=== PATIENT | female | born 1950 | race Caucasian/White ===

== ENCOUNTER 2018-03-20 11:16 | Observation (INO) ==
[2018-03-20] MEDS ORDERED: ALBUTEROL SULFATE 2.5 MG/0.5 ML VIAL.NEB IH ONE ×2 (11:56→11:57)
--- NOTE | 2018-03-20 12:00 | ERNOTE ---
Dyspnea - Date Date of Service: 03/20/18 - General Presenting Symptoms: shortness of breath Time Seen by Provider: 03/20/18 11:24 Source: patient, family Exam Limitations: no limitations - Immun/Allergies/Home Medications Immunizations: IMMUNIZATION HX Immunizations Up to Date Yes History of Influenza Vaccine No Allergies/Adverse Reactions: Allergies shellfish derived Allergy (Verified 03/20/18 11:32) Home Medications: HOME MEDICATIONS Metoprolol Tartrate [Lopressor] 50 mg PO HS 07/09/15 [Last Taken Unknown] QUEtiapine FUMARATE [Seroquel] 25 mg PO HS 09/11/15 [Last Taken Unknown] Sertraline HCl [Zoloft] 100 mg PO BID 09/11/15 [Last Taken Unknown] Albuterol Sulfate [Proair Hfa] 1 puff IH QID PRN 07/25/16 [Last Taken Unknown] Albuterol Sulfate/Ipratropium [Duoneb 2.5-0.5MG/3ML Soln] 3 ml IH QID 07/25/16 [ Last Taken Unknown] Atorvastatin Calcium [Lipitor] 20 mg PO DAILY 07/25/16 [Last Taken Unknown] Diazepam 10 mg PO QID 07/25/16 [Last Taken Unknown] Levothyroxine Sodium [Synthroid] 88 mcg PO DAILY@0700 #30 tablet 07/28/16 [Last Taken Unknown] Spironolactone [Aldactone] 25 mg PO BID@0900,1700 #60 tablet 07/28/16 [Last Taken Unknown] Fluticasone/Vilanterol [Breo Ellipta 200-25 Mcg INH] 1 each IH DAILY 11/10/16 [ Last Taken Unknown] Umeclidinium [place] [Incruse Ellipta] 62.5 mcg IH DAILY 11/10/16 [Last Taken Unknown] Cyclobenzaprine HCl [Flexeril] 10 mg PO BID 03/20/18 [Last Taken Unknown] Montelukast Sodium [Singulair] 10 mg PO DAILY 03/20/18 [Last Taken Unknown] QUEtiapine FUMARATE [Seroquel] 25 mg PO DAILY 03/20/18 [Last Taken Unknown] traMADol HCL [Ultram] 50 mg PO Q4H PRN 03/20/18 [Last Taken Unknown] - History of Present Illness Narrative: Patient presents with complaints of dyspnea worsening over the past week. States she has significant COPD requiring continuous O2 at 2 liters NC. Has however increased to 3 liters periodically over the past week. Denies any pain. Denies a productive cough. 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 Took a duoneb this AM. 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 - Duoneb Initiating event: Reports: none Frequency of episodes: Reports: occassional episodes Modifying Factors - (Improves): Reports: albuterol, oxygen Modifying Factors (Worsens): Reports: other - Weather changes Associated Symptoms-Dyspnea: Reports: anxiety, other - States when she cannot breath she becomes anxious Prior Treatment: Reports: other - Patient has had COPD exacerbations before requiring intervention Review of Systems - Review of Systems Constitutional: Present: See HPI EYE: Present: no symptoms reported ENT: Present: no symptoms reported Respiratory: Present: other - Chronic dyspnea on O2 worse the past week. States she is using her duoneb as instructed and continuing with inhalers but feels as if she is getting worse. Denies a productive cough. Cardiology: Present: no symptoms reported, other - States she had an angio in October and everything was fine. Gastrointestinal/Abdominal: Present: no symptoms reported Genitourinary: Present: no symptoms reported Musculoskeletal: Present: no symptoms reported, other - chronic muscle weakness Skin: Present: no symptoms reported Neurological: Present: no symptoms reported Endocrine: Present: no symptoms reported Hematologic/Lymphatic: Present: no symptoms reported Psych: Present: anxiety, other - Takes valium for her anxiety as needed. - Patient's Past Medical History Patient History - Medical: Anxiety, Depression Patient History - Cardiac/Respiratory: COPD, Hypertension, Home O2 Use, CPAP/ BiPAP Home Use, Sleep Apnea Patient History - Cancer: No Hx of Cancer Patient History - Surgical Procedures: T & A Patient History - Other: None - Family History mom Family History - Medical: Family History - Cardiac/Respiratory: COPD, Home O2 Use, CPAP/BiPAP Home Use, Sleep Apnea - Social History Living Situations: home Abuse History: No History of abuse Psych History: Hx of Anxiety, Hx of Depression - Immunizations Immunizations Up to Date: Yes History of Influenza Vaccine: No Physical Exam - Physical Exam General Appearance: Present: wd/wn, alert, cheerful, other - Does become more SOB with long conversations. Head Exam: Present: normal inspection, no evidence of injury Eye Exam: Normal inspection: bilateral, PERRL: bilateral, EOMI: bilateral Ears, Nose, Throat: Present: normal ENT inspection, normal pharynx Neck: Present: normal inspection, nontender, supple, other - No bruits Respiratory: Present: decreased breath sounds, other - No wheezes, rales, or rhonchi. Tachypnea Cardiovascular/Chest: Present: regular rate, rhythm, no murmur, normal peripheral pulses Peripheral Pulses: N=norm/S=strong/W=weak/B=bound/A=absent: Radial (R): Normal, Radial (L): Normal Gastrointestinal/Abdominal: Present: normal bowel sounds, nontender, nondistended, soft Back Exam: Present: no CVA tenderness Extremity Exam: Present: normal inspection, normal range of motion Neurological Exam: Present: alert, normal mood/affect, no motor/sensory deficits Skin Exam: Present: normal color, warm/dry ED Progress - Results and Orders Patient's Lab Results:: I have reviewed the patient's lab results. - Vital Signs Patient's Vital Signs:: I have reviewed the patient's vital signs. Vital Signs: Vital Signs 03/20/18 03/20/18 11:20 11:33 Temperature 38.4 C H Pulse Rate 92 92 Respiratory 26 H 26 H Rate Blood Pressure 152/71 152/71 O2 Sat by Pulse 93 90 Oximetry - EKG EKG: NSR EKG read: Interp. by me - X-Ray X-Ray #1 X-Ray: chest Interpretation: Reviewed by me - No acute infiltrates. COPD - Progress/Reassessment Chief Complaint: Dyspnea Progress:: Improved - Transfer of Care Expected Disposition: Admit - Discussed patient with Dr. Nash who agreed with placing on observation. Departure Clinical Impression: COPD exacerbation - Departure Disposition: Short Term Hospital Inpatient Condition: Good
[2018-03-20 12:09] LABS: Hematocrit 41.4 % (37.0-47.0); Hemoglobin 13.4 gm/dL (12.5-16.0); Mean Cell Volume 96.1 fl (78-100); Mean Corpuscular Hemoglobin 31.1 pg (27-31); Mean Corpuscular Hgb Conc 32.4 g/dl (32-36); Mean Platelet Volume 9.7 fl (8-12.5); Neutrophil # 10.6 K/mm3 (1.3-6.0); Neutrophil % 86.5 % (42-75.0); Platelet Count 167 K/mm3 (150-450); Red Blood Count 4.31 M/mm3 (4.2-5.4); Red Cell Distribution Width 13.3 % (11.5-14.0); White Blood Count 12.2 K/mm3 (4.0-10.5)
[2018-03-20 12:21] LABS: Albumin * 4.3 gm/dl (3.4-5.0); Anion Gap 13.6 mmol/L (6.8-13.8); BUN/Creatinine Ratio 13.3 (9.0-21.6); Bilirubin, Total 0.5 mg/dL (0.0-1.1); Ca. Corrected For Albumin 8.2 mg/dL (8.4-10.2); Calcium * 8.8 mg/dL (7.9-10.9); Carbon Dioxide 31.7 mmol/L (24-32.6); Potassium 4.3 mmol/L (3.4-4.6); Total Protein 8.5 gm/dL (6.2-8.2)
[2018-03-20] MEDS ORDERED: ACETAMINOPHEN 325 MG TABLET PO ONE (12:36)
[2018-03-20] MEDS ORDERED: ACETAMINOPHEN 325 MG TABLET ONE (12:43)
[2018-03-20] MEDS ORDERED: NORMAL SALINE 1,000 ML IV ONE (12:44)
[2018-03-20 12:51] LABS: Urine Bilirubin Negative (NEGATIVE); Urine Blood Negative /ul (NEGATIVE); Urine Ketone Negative (NEGATIVE); Urine Protein Negative (NEGATIVE); Urine Specific Gravity 1.015 SP.GR. (1.005-1.010); Urine Urobilinogen Normal (NORMAL); Urine pH 7.5 pH (5.0-7.0)
[2018-03-20] MEDS ORDERED: LEVOFLOXACIN IN DEXTROSE 5 % 500 MG/100 ML BAG IV SCH (13:00)
[2018-03-20 13:03] LABS: Urine Appearance Slightly Cloudy (CLEAR); Urine Bacteria 3+; Urine Color Yellow; Urine Nitrite Positive (NEGATIVE); Urine RBC 0-5 /hpf (0-5); Urine WBC 0-5 /hpf (0-5)
[2018-03-20] MEDS ORDERED: METHYLPREDNISOLONE SOD SUCC/PF 40 MG/ML VIAL IV ONE (13:04)
[2018-03-20] MEDS ORDERED: METHYLPREDNISOLONE SOD SUCC/PF 40 MG/ML VIAL ONE (13:06)
--- NOTE | 2018-03-20 17:05 | HP ---
Chief Complaint - Chief Complaint Date of Service: 03/20/18 Time of Service: 16:56 Chief Complaint: increasing shortness of breath History of Present Illness: Iqra pool, is a 67-year-old white female, patient of Dr. Torres, with previous medical history of severe COPD, oxygen dependent, generalized anxiety disorder, hypertension , obstructive sleep apnea, pulmonary hypertension, who was admitted on 03/20/2018 because of shortness of breath. The patient went to the emergency room because of worsening shortness of breath for the last week. She is on home oxygen at 2 L 24 hours a day . She has been having some cough , mostly nonproductive and some wheezing . She had been increasing her oxygen to 3 L, intermittently, however she still could not get relief of dyspnea. This morning she was noticed to be confused . When he bought her to the bathroom , his O2 dropped down to the low 80's% as they have a pulse oximeter at home He gave her a Duoneb which did not help and so the brought her to the emergency room. Her CXR did not show acute cardiopulmonary findings. Her WBC was elevated and her ABG, showed respiratory acidosis with hypercapnea and hypoxemia. She was admitted for further treatment. - Patient's Past Medical History Patient History - Medical: Anxiety, Depression Patient History - Cardiac/Respiratory: COPD, Hypertension, Home O2 Use, CPAP/ BiPAP Home Use, Sleep Apnea Patient History - Cancer: No Hx of Cancer Patient History - Surgical Procedures: T & A Patient History - Other: None - Family History Father Family History - Medical: , No pertinent hx Family History - Cardiac/Respiratory: No pertinent hx Family History - Cancer: Colon, Prostate mom Family History - Medical: Family History - Cardiac/Respiratory: No pertinent hx Family History - Cancer: Colon - Social History Living Situations: significant other Abuse History: No History of abuse Psych History: Hx of Anxiety, Hx of Depression Smoking Status: Former smoker Have you smoked in the past 12 months: No Alcohol Use: occasionally Drug Use: none - Immunizations Immunizations Up to Date: Yes History of Influenza Vaccine: No Review Of Systems (GEN) - Review of Systems Generalized/Overall Review: Absent: Chills, Fever Respiratory: Present: Cough, Shortness of Breath, Wheezing Cardiac: Absent: Chest Pain, Edema, Palpitations Abdominal: Absent: Nausea, Vomiting Genitourinary: Absent: Urgency, Frequency Allergies/Adverse Reactions: Allergies Allergy/AdvReac Type Severity Reaction Status Date / Time shellfish derived Allergy Verified 03/20/18 16:04 Home Medications: HOME MEDICATIONS QUEtiapine FUMARATE [Seroquel] 25 mg PO HS 09/11/15 [Last Taken Unknown] Sertraline HCl [Zoloft] 100 mg PO BID 09/11/15 [Last Taken Unknown] Albuterol Sulfate [Proair Hfa] 1 puff IH QID PRN 07/25/16 [Last Taken Unknown] Albuterol Sulfate/Ipratropium [Duoneb 2.5-0.5MG/3ML Soln] 3 ml IH QID PRN [Last Taken Unknown] Atorvastatin Calcium [Lipitor] 20 mg PO DAILY 07/25/16 [Last Taken Unknown] Diazepam 5 mg PO TID 07/25/16 [Last Taken Unknown] Levothyroxine Sodium [Synthroid] 88 mcg PO DAILY@0700 #30 tablet 07/28/16 [Last Taken Unknown] Spironolactone [Aldactone] 25 mg PO BID@0900,1700 #60 tablet 07/28/16 [Last Taken Unknown] Fluticasone/Vilanterol [Breo Ellipta 200-25 Mcg INH] 1 each IH DAILY 11/10/16 [ Last Taken Unknown] Umeclidinium [place] [Incruse Ellipta] 62.5 mcg IH DAILY 11/10/16 [Last Taken Unknown] Cyclobenzaprine HCl [Flexeril] 10 mg PO BID 03/20/18 [Last Taken Unknown] Diazepam 5 mg PO Q4H PRN 03/20/18 [Last Taken Unknown] Diazepam 10 mg PO HS 03/20/18 [Last Taken Unknown] Metoprolol Succinate 50 mg PO HS 03/20/18 [Last Taken Unknown] Montelukast Sodium [Singulair] 10 mg PO DAILY@1700 03/20/18 [Last Taken Unknown] Naproxen Sodium [Aleve] 220 mg PO BID PRN 03/20/18 [Last Taken Unknown] guaiFENesin [Guaifenesin] 400 mg PO Q4H PRN 03/20/18 [Last Taken Unknown] traMADol HCL [Ultram] 50 mg PO Q4H PRN 03/20/18 [Last Taken Unknown] Levofloxacin [Levaquin] 500 mg PO DAILY 7 Days #7 tablet 03/21/18 [Last Taken Unknown] predniSONE [Prednisone] 2 tab PO DAILY #14 tab 03/21/18 [Last Taken Unknown] Exam - Exam Vital Signs: Vital Signs - Last Taken Temp 36.7 C 03/20/18 16:05 Pulse 89 03/20/18 16:05 Resp 20 03/20/18 16:05 BP 137/72 03/20/18 16:05 Pulse Ox 95 03/20/18 16:05 Constitutional: Present: Alert, Oriented x3, Cooperative ENT Exam: Present: hearing grossly normal Eye Exam: bilateral eye: normal inspection, PERRL, EOMI Neck: Present: supple Respiratory: Present: decreased breath sounds, wheezing, No rales Cardiovascular/Chest: Present: regular rate, rhythm, no JVD, no murmur Abdomen: Present: Normal bowel sounds, soft, nontender, nondistended Extremity: Present: no pedal edema, no calf tenderness Diagnostic Studies: Laboratory Results WBC 12.2 K/mm3 (4.0-10.5) H 03/20/18 12:04 RBC 4.31 M/mm3 (4.2-5.4) 03/20/18 12:04 Hgb 13.4 gm/dL (12.5-16.0) 03/20/18 12:04 Hct 41.4 % (37.0-47.0) 03/20/18 12:04 MCV 96.1 fl (78-100) 03/20/18 12:04 MCH 31.1 pg (27-31) H 03/20/18 12:04 MCHC 32.4 g/dl (32-36) 03/20/18 12:04 RDW 13.3 % (11.5-14.0) 03/20/18 12:04 Plt Count 167 K/mm3 (150-450) 03/20/18 12:04 MPV 9.7 fl (8-12.5) 03/20/18 12:04 Immature Gran % (Auto) 0.50 % (0.001-0.429) H 03/20/18 12:04 Immature Gran # (Auto) 0.06 K/mm3 (0.000-0.0310) H 03/20/18 12:04 Neutrophils % 86.5 % (42-75.0) H 03/20/18 12:04 Lymphocytes % 6.9 % (20-51) L 03/20/18 12:04 Monocytes % 3.6 % (0.0-9) 03/20/18 12:04 Eosinophils % 2.3 % (0.0-3.0) 03/20/18 12:04 Basophils % 0.2 % (0.0-1.0) 03/20/18 12:04 Nucleated RBC % 0.0 k/mm3 (0-1) 03/20/18 12:04 Neutrophils # 10.6 K/mm3 (1.3-6.0) H 03/20/18 12:04 Lymphocytes # 0.84 k/mm3 (1.5-3.5) L 03/20/18 12:04 Monocytes # 0.4 k/mm3 (0.0-1.0) 03/20/18 12:04 Eosinophils # 0.3 k/mm3 (0.0-0.7) 03/20/18 12:04 Absolute Basophils 0.0 k/mm3 (0.0-0.1) 03/20/18 12:04 pCO2 51.7 mmHg (32.0-45.0) H 03/20/18 12:08 pO2 68.1 mmHg (83.0-108.0) L 03/20/18 12:08 HCO3 30.0 mmol/L (21.0-28.0) H 03/20/18 12:08 Total CO2 31.6 mmol/L (19.0-24.0) H 03/20/18 12:08 Base Excess 3.8 mmol/L (-2.0-3.0) H 03/20/18 12:08 ABG pH 7.38 (7.35-7.45) 03/20/18 12:08 ABG O2 Sat (Measured) 93.1 % (94.0-98.0) L 03/20/18 12:08 Sodium 139 mmol/L (132-142) 03/20/18 12:04 Plasma Sodium 139 mmol/L (130-142) 03/20/18 12:04 Potassium 4.3 mmol/L (3.4-4.6) 03/20/18 12:04 Chloride 98 mmol/L (97-106) 03/20/18 12:04 Carbon Dioxide 31.7 mmol/L (24-32.6) 03/20/18 12:04 Anion Gap 13.6 mmol/L (6.8-13.8) 03/20/18 12:04 BUN 11 mg/dL (3-23) 03/20/18 12:04 Creatinine 0.83 mg/dL (0.4-1.4) 03/20/18 12:04 Est GFR (Non-Af Amer) 72 mL/min (60-130) D 03/20/18 12:04 BUN/Creatinine Ratio 13.3 (9.0-21.6) 03/20/18 12:04 Random Glucose 126 mg/dL (70-110) H 03/20/18 12:04 Lactic Acid, Venous 1.4 mmol/L (0.4-1.9) 03/20/18 15:48 Calcium 8.8 mg/dL (7.9-10.9) 03/20/18 12:04 Calcium Adj for Albumin 8.2 mg/dL (8.4-10.2) L 03/20/18 12:04 Total Bilirubin 0.5 mg/dL (0.0-1.1) 03/20/18 12:04 AST 38 U/L (0-48) 03/20/18 12:04 ALT 50 U/L (19-67) 03/20/18 12:04 Alkaline Phosphatase 169 U/L (50-170) 03/20/18 12:04 Total Protein 8.5 gm/dL (6.2-8.2) H 03/20/18 12:04 Albumin 4.3 gm/dl (3.4-5.0) 03/20/18 12:04 Procalcitonin Less than 0.05 ng/mL (0.05-0.50) L 03/20/18 12:10 Urine Color Yellow 03/20/18 12:34 Urine Appearance Slightly cloudy (CLEAR) 03/20/18 12:34 Urine pH 7.5 pH (5.0-7.0) 03/20/18 12:34 Ur Specific [place] 1.015 SP.GR. (1.005-1.010) 03/20/18 12:34 Urine Protein Negative mg/dL (NEGATIVE) 03/20/18 12:34 Urine Glucose (UA) Negative mg/dL (NEGATIVE) 03/20/18 12:34 Urine Ketones Negative mg/dL (NEGATIVE) 03/20/18 12:34 Urine Blood Negative /ul (NEGATIVE) 03/20/18 12:34 Urine Nitrate Positive (NEGATIVE) H 03/20/18 12:34 Urine Bilirubin Negative mg/dl (NEGATIVE) 03/20/18 12:34 Urine Urobilinogen Normal EU/dl (NORMAL) 03/20/18 12:34 Ur Leukocyte Esterase Negative /ul (NEGATIVE) 03/20/18 12:34 Urine RBC 0-5 /hpf (0-5) 03/20/18 12:34 Urine WBC 0-5 /hpf (0-5) 03/20/18 12:34 Ur Epithelial Cells 0-5 /hpf (0-5) 03/20/18 12:34 Urine Bacteria 3+ (NONE) H 03/20/18 12:34 Urine Culture Comments Culture to follow 03/20/18 12:34 Assessment/Plan - Assessment/Plan (1) Acute respiratory failure with hypoxia and hypercapnia Assessment: likely acute bronchitis. will continue with oxygenation Problem: Acute (2) COPD exacerbation Assessment: will continue with breathing treatments, IV Solumedrol and IV antibiotics. Problem: Acute (3) Depression Assessment: with TOREY Problem: Chronic (4) Pulmonary hypertension Problem: Chronic
[2018-03-20] MEDS ORDERED: traMADol HCL 50 MG TABLET PO PRN (17:12)
[2018-03-20] MEDS ORDERED: NAPROXEN SODIUM 220 MG TABLET PO PRN (17:12)
[2018-03-20] MEDS ORDERED: ALBUTEROL SULFATE 200 PUFF INHALER IH PRN (17:12)
[2018-03-20] MEDS ORDERED: METHYLPREDNISOLONE SOD SUCC/PF 40 MG/ML VIAL IV SCH (17:15)
[2018-03-20] MEDS ORDERED: ALBUTEROL SULFATE 2.5 MG/0.5 ML VIAL.NEB IH PRN (17:29)
[2018-03-20] MEDS ORDERED: ALBUTEROL SULFATE/IPRATROPIUM 3 ML NEBU IH PRN (17:29)
[2018-03-20] MEDS ORDERED: DIAZEPAM 5 MG TABLET PO PRN (17:44)
[2018-03-20] MEDS ORDERED: guaiFENesin 100 MG/5 ML BTL PO PRN (17:47)
[2018-03-20] MEDS: DIAZEPAM 5 MG TABLET PO SCH (18:13)
[2018-03-20] MEDS: METHYLPREDNISOLONE SOD SUCC/PF 40 MG/ML VIAL IV SCH (19:37)
[2018-03-20] MEDS: SERTRALINE HCL 100 MG TABLET PO SCH (20:34)
[2018-03-20] MEDS ORDERED: DIAZEPAM 5 MG TABLET PO SCH (21:00)
[2018-03-20] MEDS ORDERED: METOPROLOL SUCCINATE 50 MG TABLET.SA PO SCH (21:00)
[2018-03-20] MEDS ORDERED: QUEtiapine FUMARATE 25 MG TABLET PO SCH (21:00)
[2018-03-21] MEDS: METHYLPREDNISOLONE SOD SUCC/PF 40 MG/ML VIAL IV SCH ×2 (01:02→07:51)
--- NOTE | 2018-03-21 06:52 | DS ---
Addendum entered and electronically signed by Adis Nash MD 03/21/18 08 :59: I saw and examined this patient on 03/21/2018. I agree with the narrative and plan of ARISTEO Curtis. Will discharge her on her home medications and keep her Levaquin and Prednisone x 7 days. She has an appointment with her senior accountant on Thursday. Original Note: (1) COPD exacerbation Problem: Acute (2) Pulmonary hypertension Problem: Chronic (3) Chronic lower back pain Problem: Chronic Qualifiers: Back pain laterality: bilateral Sciatica presence: unspecified whether sciatica present Qualified Code(s): M54.5 - Low back pain; G89.29 - Other chronic pain; G89.29 - Other chronic pain (4) Generalized muscle weakness Problem: Acute (5) Depression Problem: Chronic (6) Acute respiratory failure with hypoxia and hypercapnia Problem: Acute Description of Stay: Date of admission 03/20/2018 Date of discharge 03/21/2018 Discharge Summary Mrs. pool a 67 years old female was adm to the hospital with reports of dyspnea, non productive cough and hypoxia. Pt is oxygen dependent and uses 2L nasal cannula 24hr. PMH significant for severe COPD, oxygen dependent, generalized anxiety disorder, hypertension , obstructive sleep apnea, pulmonary hypertension.Over the past week she has worsening shortness of breath. While at home she nebulizer, inhalers and increased her oxygen intermittently without relief. On the day of adm she went to the bathroom and her spo2 was 80%, her was concern and brought her to the hospital.CXR:No acute cardiopulmonary findings.Her WBC was elevated and her ABG, showed respiratory acidosis with hypercapnea and hypoxemia. During this adm she had supplemented oxygen of 3L, solumedrol, IV antibiotic and neb treatments. She remains medically stable and tolerated treatment well. Today pt stated she feels much better and more liker her old self.She is medically appropriate for discharge home and follow up with Dr Torres. She will continue with oral Levaquin and Prednisone for an additional 7 days.Plan of care discussed with pt she verbalized understanding and agrees. New Medications Prednisone 40mg daily x7 days Levaquin 500mg daily x7 days Procedures Performed: none Results and Findings: Laboratory Tests 03/20/18 03/20/18 03/20/18 03/20/18 12:04 12:04 12:10 15:48 WBC 12.2 H RBC 4.31 Hgb 13.4 Hct 41.4 MCV 96.1 MCH 31.1 H Plt Count 167 Sodium 139 Plasma Sodium 139 Potassium 4.3 Chloride 98 Carbon Dioxide 31.7 Anion Gap 13.6 BUN 11 Lactic Acid, Venous 2.0 H 1.4 Discharge Location: Home Disposition: Home self-care Condition: Good Discharge Activity: Activity as tolerated Discharge Diet: General/regular food Problem Oriented Discharge Instructions to Patient/Family: Chronic Obstructive Pulmonary Disease Exacerbation, [id number], Hypoxemia Additional Patient Instructions (free text): Follow up with Dr Torres in 8-10 days, please call for appt. Keep appointment with senior accountant on Thursday. Prescriptions (Any new or edited meds): Levofloxacin [Levaquin] 500 mg PO DAILY 7 Days #7 tablet predniSONE [Prednisone] 2 tab PO DAILY #14 tab Complete Home Medications List: Complete Home Medication List: QUEtiapine FUMARATE [Seroquel] 25 mg PO HS 09/11/15 Sertraline HCl [Zoloft] 100 mg PO BID 09/11/15 Albuterol Sulfate [Proair Hfa] 1 puff IH QID PRN 07/25/16 Albuterol Sulfate/Ipratropium [Duoneb 2.5-0.5MG/3ML Soln] 3 ml IH QID PRN Atorvastatin Calcium [Lipitor] 20 mg PO DAILY 07/25/16 Diazepam 5 mg PO TID 07/25/16 Levothyroxine Sodium [Synthroid] 88 mcg PO DAILY@0700 #30 tablet 07/28/16 Spironolactone [Aldactone] 25 mg PO BID@0900,1700 #60 tablet 07/28/16 Fluticasone/Vilanterol [Breo Ellipta 200-25 Mcg INH] 1 each IH DAILY 11/10/16 Umeclidinium [place] [Incruse Ellipta] 62.5 mcg IH DAILY 11/10/16 Cyclobenzaprine HCl [Flexeril] 10 mg PO BID 03/20/18 Diazepam 5 mg PO Q4H PRN 03/20/18 Diazepam 10 mg PO HS 03/20/18 Metoprolol Succinate 50 mg PO HS 03/20/18 Montelukast Sodium [Singulair] 10 mg PO DAILY@1700 03/20/18 Naproxen Sodium [Aleve] 220 mg PO BID PRN 03/20/18 guaiFENesin [Guaifenesin] 400 mg PO Q4H PRN 03/20/18 traMADol HCL [Ultram] 50 mg PO Q4H PRN 03/20/18 Levofloxacin [Levaquin] 500 mg PO DAILY 7 Days #7 tablet 03/21/18 predniSONE [Prednisone] 2 tab PO DAILY #14 tab 03/21/18
[2018-03-21] MEDS ORDERED: LEVOTHYROXINE SODIUM 88 MCG TABLET PO SCH (07:00)
[2018-03-21] MEDS: SERTRALINE HCL 100 MG TABLET PO SCH (07:59)
[2018-03-21] MEDS: DIAZEPAM 5 MG TABLET PO SCH (08:00)
[2018-03-21] MEDS ORDERED: ROSUVASTATIN CALCIUM 10 MG TABLET PO SCH ×2 (09:00→21:00)
[2018-03-21] MEDS ORDERED: SPIRONOLACTONE 25 MG TABLET PO SCH (09:00)
[2018-03-21] MEDS ORDERED: TIOTROPIUM BROMIDE 5 CAP INHALER IH SCH (09:00)
[2018-03-21] MEDS ORDERED: FLUTICASONE/SALMETEROL 14 PUFF DISK.W.DEV IH SCH (09:00)
[2018-03-21 10:45] VITALS: BP 135/67
[2018-03-21] MEDS ORDERED: MONTELUKAST SODIUM 10 MG TABLET PO SCH (17:00)
== END 2018-03-21 10:46 | disposition home or self-care (01) ==
LOC: ER 11:16 → MS 13:49
PROVIDERS: ADMIT Internal Medicine; ATTEND Internal Medicine
DX: I10 Essential (primary) hypertension; R53.1 Weakness; J96.22 Acute and chronic respiratory failure with hypercapnia; G47.33 Obstructive sleep apnea (adult) (pediatric); Z68.31 Body mass index [BMI] 31.0-31.9, adult; J44.1 Chronic obstructive pulmonary disease with (acute) exacerbation; J96.21 Acute and chronic respiratory failure with hypoxia; I27.20 Pulmonary hypertension, unspecified; F41.9 Anxiety disorder, unspecified
CPT/HCPCS: 36415; 36600; 71010; 71045; 80053; 81001; 82803; 83605; 84145; 85025; 87040; 87077; 87086; 87186; 93005; 94640; 94664; 94760; 96361; 96365; 96375; 96376; 99285; G0378

== ENCOUNTER 2018-08-21 10:52 | Observation (INO) | payer BC, MEDICARE ==
[2018-08-21] MEDS ORDERED: ALBUTEROL SULFATE 2.5 MG/0.5 ML VIAL.NEB IH ONE (11:10)
[2018-08-21 11:28] LABS: Hematocrit 37.2 % (37.0-47.0); Hemoglobin 12.5 gm/dL (12.5-16.0); Mean Cell Volume 91.6 fl (78-100); Mean Corpuscular Hemoglobin 30.8 pg (27-31); Mean Corpuscular Hgb Conc 33.6 g/dl (32-36); Mean Platelet Volume 9.9 fl (8-12.5); Neutrophil # 9.5 K/mm3 (1.3-6.0); Neutrophil % 85.6 % (42-75.0); Platelet Count 148 K/mm3 (150-450); Red Blood Count 4.06 M/mm3 (4.2-5.4); Red Cell Distribution Width 13.5 % (11.5-14.0); White Blood Count 11.1 K/mm3 (4.0-10.5)
--- NOTE | 2018-08-21 11:34 | ERNOTE ---
Dyspnea - Date Date of Service: 08/21/18 - General Presenting Symptoms: shortness of breath, wheezing Time Seen by Provider: 08/21/18 10:54 Source: patient, family Exam Limitations: no limitations - Immun/Allergies/Home Medications Immunizations: IMMUNIZATION HX Immunizations Up to Date Yes History of Influenza Vaccine Yes Hx Pneumococcal Vaccination Yes Allergies/Adverse Reactions: Allergies shellfish derived Allergy (Verified 08/21/18 11:24) Home Medications: HOME MEDICATIONS Sertraline HCl [Zoloft] 100 mg PO BID 09/11/15 [Last Taken Unknown] Albuterol Sulfate [Proair Hfa] 1 puff IH QID PRN 07/25/16 [Last Taken Unknown] Albuterol Sulfate/Ipratropium [Duoneb 2.5-0.5MG/3ML Soln] 3 ml IH QID PRN 07/25/16 [Last Taken Unknown] Atorvastatin Calcium [Lipitor] 20 mg PO DAILY 07/25/16 [Last Taken Unknown] Umeclidinium [place] [Incruse Ellipta] 62.5 mcg IH DAILY 11/10/16 [Last Taken Unknown] Cyclobenzaprine HCl [Flexeril] 10 mg PO BID 03/20/18 [Last Taken Unknown] Metoprolol Succinate 25 mg PO HS 03/20/18 [Last Taken Unknown] Montelukast Sodium [Singulair] 10 mg PO DAILY@1700 03/20/18 [Last Taken Unknown] Naproxen Sodium [Aleve] 220 mg PO BID PRN 03/20/18 [Last Taken Unknown] guaiFENesin [Guaifenesin] 400 mg PO Q4H PRN 03/20/18 [Last Taken Unknown] tramadol 50 mg tablet 50 mg PO Q4H PRN 30 Days #120 tab 05/11/18 [Last Taken Unknown] spironolactone 25 mg tablet 25 mg PO BID@0900,1700 #60 tab 06/02/18 [Last Taken Unknown] levothyroxine 88 mcg tablet 88 mcg PO DAILY@0700 #30 tab 06/03/18 [Last Taken Unknown] quetiapine 25 mg tablet 25 mg PO HS #30 tab 07/30/18 [Last Taken Unknown] Diazepam 10 mg PO TID 08/21/18 [Last Taken Unknown] Fluticasone/Vilanterol [Breo Ellipta 200-25 Mcg INH] 1 each IH DAILY 08/21/18 [Last Taken Unknown] - History of Present Illness Narrative: Patient states this past weather change approx. 3 days ago she noticed she was becoming more SOB. States she has had a clear productive cough mainly at night. States she has been using her inhalers and nebs as instructed. Denies any chest pain or nausea. States she uses 2 lpm during the day and 3.5 at night. Date (Duration): 08/18/18 Severity: moderate Treatment MANAGER LPN: by patient, oxygen, albuterol Initiating event: Reports: allergy to environment, other - Weather change Frequency of episodes: Reports: occassional episodes Modifying Factors - (Improves): Reports: albuterol, rest Modifying Factors (Worsens): Reports: coughing, cold Associated Symptoms-Dyspnea: Reports: anxiety. Denies: fever/chills, chest pain/discomfort Review of Systems - Review of Systems Constitutional: Present: no symptoms reported EYE: Present: no symptoms reported ENT: Present: no symptoms reported Respiratory: Present: See HPI, shortness of breath, cough, wheezing Cardiology: Present: no symptoms reported Gastrointestinal/Abdominal: Present: no symptoms reported Genitourinary: Present: no symptoms reported Musculoskeletal: Present: no symptoms reported Skin: Present: no symptoms reported Neurological: Present: anxiety - Anxiety when SOB Endocrine: Present: no symptoms reported Hematologic/Lymphatic: Present: no symptoms reported Psych: Present: anxiety Medical History (Last Updated 08/21/18 @ 11:47 by Naty Reynolds RN) History of COPD History of depression History of hypothyroidism Hx of pulmonary hypertension Hypertension Surgical History: Surgical History (Last Updated 08/21/18 @ 11:47 by Naty Reynolds RN) Hx of tonsillectomy Family History: Family History (Last Updated 08/21/18 @ 11:52 by Naty Reynolds RN) Mother Family hx of colon cancer Father Family hx of prostate cancer Social History: Preferred Language Sinhala Do you have any rastafari or No cultural preference? Have you smoked in the past 12 No months Do you dip or chew tobacco No Abuse History No History of abuse Psych History Hx of Anxiety,Hx of Depression Alcohol Use none Drug Use none No Social History Section defined Physical Exam - Physical Exam General Appearance: Present: wd/wn, alert, mild distress Head Exam: Present: normal inspection, no evidence of injury Eye Exam: Normal inspection: bilateral, PERRL: bilateral, EOMI: bilateral Ears, Nose, Throat: Present: normal ENT inspection, normal pharynx Neck: Present: normal inspection, nontender. Absent: carotid bruit, lymphadenopathy (R), lymphadenopathy (L) Respiratory: Present: accessory muscle use, decreased breath sounds, expiration (prolonged), wheezing. Absent: crackles, rales, rhonchi Cardiovascular/Chest: Present: regular rate, rhythm, normal peripheral pulses, systolic murmur Peripheral Pulses: N=norm/S=strong/W=weak/B=bound/A=absent: Radial (R): Normal, Radial (L): Normal, Dorsalis-pedis (R): Normal, Dorsalis-pedis (L): Normal Gastrointestinal/Abdominal: Present: normal bowel sounds, nontender, nondistended, soft Back Exam: Present: normal inspection, normal range of motion, no CVA tenderness, no vertebral tenderness Extremity Exam: Present: normal inspection, non-tender, normal range of motion, no edema Neurological Exam: Present: alert, oriented, normal mood/affect, no mo tor/sensory deficits Skin Exam: Present: normal color, warm/dry ED Progress - Results and Orders Patient's Lab Results:: I have reviewed the patient's lab results. - Vital Signs Patient's Vital Signs:: I have reviewed the patient's vital signs. Vital Signs: Vital Signs 08/21/18 11:05 08/21/18 11:25 Temperature 37.5 C Pulse Rate 86 85 Respiratory Rate 23 H 24 H Blood Pressure 152/72 H O2 Sat by Pulse Oximetry 92 L 90 L - EKG EKG: NSR EKG read: Interp. by me - X-Ray X-Ray #1 X-Ray: chest - LLL pneumonitis - Progress/Reassessment Chief Complaint: Dyspnea Progress:: Improved - Transfer of Care Additional Notes: Discussed patient with Dr. Barnett. Will place patient on obs for respiratory support and IV antibiotics. Departure Clinical Impression: COPD with exacerbation UTI (urinary tract infection) Qualifiers: Urinary tract infection type: acute cystitis Hematuria presence: without hematuria Qualified Code(s): N30.00 - Acute cystitis without hematuria - Departure Disposition: Still a patient Condition: Stable
[2018-08-21 11:44] LABS: ALT 28 U/L (19-67); AST 22 U/L (0-48); Albumin * 3.8 gm/dl (3.4-5.0); Alkaline Phosphatase * 138 U/L (50-170); BNP * 170 pg/mL (5-325); BUN/Creatinine Ratio 14.7 (9.0-21.6); Bilirubin, Total 0.7 mg/dL (0.0-1.1); Blood Urea Nitrogen 14 mg/dL (3-23); Ca. Corrected For Albumin 8.5 mg/dL (8.4-10.2); Calcium * 8.7 mg/dL (7.9-10.9); Carbon Dioxide 30.9 mmol/L (24-32.6); Chloride 97 mmol/L (97-106); Glucose * 130 mg/dL (70-110); Potassium 3.9 mmol/L (3.4-4.6); Sodium 136 mmol/L (132-142); Total Protein 8.1 gm/dL (6.2-8.2); Troponin I Less than 0.017 ng/mL (0.00-0.10)
[2018-08-21] MEDS ORDERED: METHYLPREDNISOLONE SOD SUCC/PF 40 MG/ML VIAL IV ONE (12:27)
[2018-08-21 12:38] LABS: Urine Bilirubin Negative (NEGATIVE); Urine Blood Negative /ul (NEGATIVE); Urine Ketone Negative (NEGATIVE); Urine Nitrite Positive (NEGATIVE); Urine Protein Negative (NEGATIVE); Urine Specific Gravity 1.015 SP.GR. (1.005-1.010); Urine Urobilinogen Normal (NORMAL)
[2018-08-21 12:39] LABS: Urine Appearance Slightly Cloudy (CLEAR); Urine Bacteria 4+; Urine Color Yellow; Urine RBC None Seen /hpf (0-5); Urine WBC 25-50 /hpf (0-5)
[2018-08-21] MEDS ORDERED: LEVOFLOXACIN IN DEXTROSE 5 % 500 MG/100 ML BAG IV SCH (13:15)
[2018-08-21] MEDS ORDERED: traMADol HCL 50 MG TABLET PO PRN (14:30)
[2018-08-21] MEDS ORDERED: guaiFENesin 100 MG/5 ML BTL PO PRN (14:30)
[2018-08-21] MEDS ORDERED: ALBUTEROL SULFATE/IPRATROPIUM 3 ML NEBU IH PRN (14:30)
[2018-08-21] MEDS ORDERED: NAPROXEN SODIUM 220 MG TABLET PO PRN (14:30)
[2018-08-21] MEDS ORDERED: ALBUTEROL SULFATE 2.5 MG/0.5 ML VIAL.NEB IH PRN (14:30)
--- NOTE | 2018-08-21 16:01 | HP ---
Chief Complaint - Chief Complaint Date of Service: 08/21/18 Time of Service: 15:44 Chief Complaint: cough, SOB History of Present Illness: Iqra Champagne is a 68 yo wh. fe. who has a long standig hx. of COPD and has had many exacerbations of that in the pst. 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 She started having SOB yesterday and it was worse through the night. She started coughing yesterday as well. Denies fever, chills, or productive purulent sputum. Exam in the ER reveals she has a LLL pneumonia and may involve the lingular lobe as well. A wedge defect is seen on the lateral view. ABGs: pH 7.40, PO2 60, PCO2 48.1, HCO3 29.3, TCO2 30.7, BE +3.7 measured while on O2 at 4L/min NC. She also has a UTI. Medical History (Last Updated 08/21/18 @ 11:47 by Naty Reynolds RN) History of COPD History of depression History of hypothyroidism Hx of pulmonary hypertension Hypertension Surgical History: Surgical History (Last Updated 08/21/18 @ 11:47 by Naty Reynolds RN) Hx of tonsillectomy Family History: Family History (Last Updated 08/21/18 @ 11:52 by Naty Reynolds RN) Mother Family hx of colon cancer Father Family hx of prostate cancer Social History: Preferred Language Irish Do you have any methodist or No cultural preference? Have you smoked in the past 12 No months Do you dip or chew tobacco No Abuse History No History of abuse Psych History Hx of Anxiety,Hx of Depression Alcohol Use none Drug Use none No Social History Section defined Review Of Systems (GEN) - Review of Systems Generalized/Overall Review: Present: No Symptoms Reported EENTM: Present: No Symptoms Reported Respiratory: Present: Cough, Shortness of Breath, Wheezing Cardiac: Present: No Symptoms Reported Abdominal: Present: No Symptoms Reported Genitourinary: Present: No Symptoms Reported Musculoskeletal: Present: No Symptoms Reported Neurological: Present: No Symptoms Reported Skin: Present: No Symptoms Reported Endocrine: Present: No Symptoms Reported Misc: All systems neg except as marked Immunizations: IMMUNIZATION HX Immunizations Up to Date Yes History of Influenza Vaccine Yes Hx Pneumococcal Vaccination Yes Allergies/Adverse Reactions: Allergies Allergy/AdvReac Type Severity Reaction Status Date / Time shellfish derived Allergy Verified 08/21/18 11:24 Home Medications: HOME MEDICATIONS Sertraline HCl [Zoloft] 100 mg PO BID 09/11/15 [Last Taken Unknown] Albuterol Sulfate [Proair Hfa] 1 puff IH QID PRN 07/25/16 [Last Taken Unknown] Albuterol Sulfate/Ipratropium [Duoneb 2.5-0.5MG/3ML Soln] 3 ml IH QID PRN 07/25/16 [Last Taken Unknown] Atorvastatin Calcium [Lipitor] 20 mg PO DAILY 07/25/16 [Last Taken Unknown] Umeclidinium [place] [Incruse Ellipta] 62.5 mcg IH DAILY 11/10/16 [Last Taken Unknown] Cyclobenzaprine HCl [Flexeril] 10 mg PO BID 03/20/18 [Last Taken Unknown] Metoprolol Succinate 25 mg PO HS 03/20/18 [Last Taken Unknown] Montelukast Sodium [Singulair] 10 mg PO DAILY@1700 03/20/18 [Last Taken Unknown] Naproxen Sodium [Aleve] 220 mg PO BID PRN 03/20/18 [Last Taken Unknown] guaiFENesin [Guaifenesin] 400 mg PO Q4H PRN 03/20/18 [Last Taken Unknown] tramadol 50 mg tablet 50 mg PO Q4H PRN 30 Days #120 tab 05/11/18 [Last Taken Unknown] spironolactone 25 mg tablet 25 mg PO BID@0900,1700 #60 tab 06/02/18 [Last Taken Unknown] levothyroxine 88 mcg tablet 88 mcg PO DAILY@0700 #30 tab 06/03/18 [Last Taken Unknown] quetiapine 25 mg tablet 25 mg PO HS #30 tab 07/30/18 [Last Taken Unknown] Diazepam 10 mg PO TID 08/21/18 [Last Taken Unknown] Fluticasone/Vilanterol [Breo Ellipta 200-25 Mcg INH] 1 each IH DAILY 08/21/18 [Last Taken Unknown] Exam - Exam Vital Signs: Vital Signs - Last Taken Temp 35.5 C L 08/21/18 14:59 Pulse 74 08/21/18 15:29 Resp 13 08/21/18 15:29 BP 125/51 08/21/18 15:29 Pulse Ox 90 L 08/21/18 15:29 Constitutional: Present: Alert, Oriented x3, Cooperative, Well developed, Well nourished, Mild distress ENT Exam: Present: normal ENT inspection, hearing grossly normal, pharynx normal, TMs normal Eye Exam: bilateral eye: normal inspection, PERRL, EOMI Neck: Present: non-tender, full range of motion, supple, normal inspection, trachea midline, limited range of motion Back Exam: Present: normal inspection, no CVA tenderness, no vertebral tenderness Breasts: Present: Exam deferred Respiratory: Present: crackles, rhonchi, wheezing - in the left lung. BS diminished., expiration (prolonged) Cardiovascular/Chest: Present: normal peripheral pulses, regular rate, rhythm, no chest tenderness, no edema, no gallop, no JVD, no murmur, no rub Peripheral Pulses: carotid (R): 2+, carotid (L): 2+, radial (R): 2+, radial (L): 2+ Abdomen: Present: Normal bowel sounds, soft, nontender, nondistended, no rebound tenderness, no hepatospenomegaly, no masses /Rectal: Present: Exam deferred Extremity: Present: normal range of motion, non-tender, normal inspection, no pedal edema, no calf tenderness, normal capillary refill Skin Exam: Present: normal color, warm/dry, no cyanosis Lymphatic: Present: no adenopathy Neurologic: Present: director of institutional research II-XII nml as tested, normal cerebellar test, no motor/sensory deficits, alert, normal mood/affect, oriented x 3 Appearance: Present: appropriate appearance Eye contact: Present: cooperative, good eye contact, normal speech Thoughts: Present: normal thought pattern, no apparent hallucination Diagnostic Studies: Abnormal Lab Results 08/21/18 08/21/18 08/21/18 Range/Units 11:09 11:20 11:20 WBC 11.1 H (4.0-10.5) K/mm3 RBC 4.06 L (4.2-5.4) M/mm3 Plt Count 148 L (150-450) K/mm3 Immature Gran % (Auto) 0.50 H (0.001-0.429) % Immature Gran # (Auto) 0.06 H (0.000-0.0310) K/mm3 Neutrophils % 85.6 H (42-75.0) % Lymphocytes % 7.4 L (20-51) % Neutrophils # 9.5 H (1.3-6.0) K/mm3 Lymphocytes # 0.82 L (1.5-3.5) k/mm3 pCO2 48.1 H (32.0-45.0) mmHg pO2 60.0 L (83.0-108.0) mmHg HCO3 29.3 H (21.0-28.0) mmol/L Total CO2 30.7 H (19.0-24.0) mmol/L Base Excess 3.7 H (-2.0-3.0) mmol/L ABG O2 Sat (Measured) 90.8 L (94.0-98.0) % Random Glucose 130 H (70-110) mg/dL Urine Nitrate (NEGATIVE) Ur Leukocyte Esterase (NEGATIVE) /ul Urine WBC (0-5) /hpf Urine Bacteria (NONE) 08/21/18 Range/Units 12:26 WBC (4.0-10.5) K/mm3 RBC (4.2-5.4) M/mm3 Plt Count (150-450) K/mm3 Immature Gran % (Auto) (0.001-0.429) % Immature Gran # (Auto) (0.000-0.0310) K/mm3 Neutrophils % (42-75.0) % Lymphocytes % (20-51) % Neutrophils # (1.3-6.0) K/mm3 Lymphocytes # (1.5-3.5) k/mm3 pCO2 (32.0-45.0) mmHg pO2 (83.0-108.0) mmHg HCO3 (21.0-28.0) mmol/L Total CO2 (19.0-24.0) mmol/L Base Excess (-2.0-3.0) mmol/L ABG O2 Sat (Measured) (94.0-98.0) % Random Glucose (70-110) mg/dL Urine Nitrate Positive H (NEGATIVE) Ur Leukocyte Esterase 100 H (NEGATIVE) /ul Urine WBC 25-50 H (0-5) /hpf Urine Bacteria 4+ H (NONE) Laboratory Results WBC 11.1 K/mm3 (4.0-10.5) H 08/21/18 11:20 RBC 4.06 M/mm3 (4.2-5.4) L 08/21/18 11:20 Hgb 12.5 gm/dL (12.5-16.0) 08/21/18 11:20 Hct 37.2 % (37.0-47.0) 08/21/18 11:20 MCV 91.6 fl (78-100) 08/21/18 11:20 MCH 30.8 pg (27-31) 08/21/18 11:20 MCHC 33.6 g/dl (32-36) 08/21/18 11:20 RDW 13.5 % (11.5-14.0) 08/21/18 11:20 Plt Count 148 K/mm3 (150-450) L 08/21/18 11:20 MPV 9.9 fl (8-12.5) 08/21/18 11:20 Immature Gran % (Auto) 0.50 % (0.001-0.429) H 08/21/18 11:20 Immature Gran # (Auto) 0.06 K/mm3 (0.000-0.0310) H 08/21/18 11:20 Neutrophils % 85.6 % (42-75.0) H 08/21/18 11:20 Lymphocytes % 7.4 % (20-51) L 08/21/18 11:20 Monocytes % 5.0 % (0.0-9) 08/21/18 11:20 Eosinophils % 1.2 % (0.0-3.0) 08/21/18 11:20 Basophils % 0.3 % (0.0-1.0) 08/21/18 11:20 Nucleated RBC % 0.0 k/mm3 (0-1) 08/21/18 11:20 Neutrophils # 9.5 K/mm3 (1.3-6.0) H 08/21/18 11:20 Lymphocytes # 0.82 k/mm3 (1.5-3.5) L 08/21/18 11:20 Monocytes # 0.6 k/mm3 (0.0-1.0) 08/21/18 11:20 Eosinophils # 0.1 k/mm3 (0.0-0.7) 08/21/18 11:20 Absolute Basophils 0.0 k/mm3 (0.0-0.1) 08/21/18 11:20 pCO2 48.1 mmHg (32.0-45.0) H 08/21/18 11:09 pO2 60.0 mmHg (83.0-108.0) L 08/21/18 11:09 HCO3 29.3 mmol/L (21.0-28.0) H 08/21/18 11:09 Total CO2 30.7 mmol/L (19.0-24.0) H 08/21/18 11:09 Base Excess 3.7 mmol/L (-2.0-3.0) H 08/21/18 11:09 ABG pH 7.40 (7.35-7.45) 08/21/18 11:09 ABG O2 Sat (Measured) 90.8 % (94.0-98.0) L 08/21/18 11:09 Sodium 136 mmol/L (132-142) 08/21/18 11:20 Plasma Sodium 136 mmol/L (130-142) 08/21/18 11:20 Potassium 3.9 mmol/L (3.4-4.6) 08/21/18 11:20 Chloride 97 mmol/L (97-106) 08/21/18 11:20 Carbon Dioxide 30.9 mmol/L (24-32.6) 08/21/18 11:20 Anion Gap 12.0 mmol/L (6.8-13.8) 08/21/18 11:20 BUN 14 mg/dL (3-23) 08/21/18 11:20 Creatinine 0.95 mg/dL (0.4-1.4) 08/21/18 11:20 Est GFR (Non-Af Amer) 62 mL/min (60-130) 08/21/18 11:20 BUN/Creatinine Ratio 14.7 (9.0-21.6) 08/21/18 11:20 Random Glucose 130 mg/dL (70-110) H 08/21/18 11:20 Calcium 8.7 mg/dL (7.9-10.9) 08/21/18 11:20 Calcium Adj for Albumin 8.5 mg/dL (8.4-10.2) 08/21/18 11:20 Total Bilirubin 0.7 mg/dL (0.0-1.1) 08/21/18 11:20 AST 22 U/L (0-48) 08/21/18 11:20 ALT 28 U/L (19-67) 08/21/18 11:20 Alkaline Phosphatase 138 U/L (50-170) 08/21/18 11:20 Troponin I Less than 0.017 ng/mL (0.00-0.10) 08/21/18 11:20 B-Natriuretic Peptide 170 pg/mL (5-325) 08/21/18 11:20 Total Protein 8.1 gm/dL (6.2-8.2) 08/21/18 11:20 Albumin 3.8 gm/dl (3.4-5.0) 08/21/18 11:20 Urine Color Yellow 08/21/18 12:26 Urine Appearance Slightly cloudy (CLEAR) 08/21/18 12:26 Urine pH 7.0 pH (5.0-7.0) 08/21/18 12:26 Ur Specific [place] 1.015 SP.GR. (1.005-1.010) 08/21/18 12:26 Urine Protein Negative mg/dL (NEGATIVE) 08/21/18 12:26 Urine Glucose (UA) Negative mg/dL (NEGATIVE) 08/21/18 12:26 Urine Ketones Negative mg/dL (NEGATIVE) 08/21/18 12:26 Urine Blood Negative /ul (NEGATIVE) 08/21/18 12:26 Urine Nitrate Positive (NEGATIVE) H 08/21/18 12:26 Urine Bilirubin Negative mg/dl (NEGATIVE) 08/21/18 12:26 Urine Urobilinogen Normal EU/dl (NORMAL) 08/21/18 12:26 Ur Leukocyte Esterase 100 /ul (NEGATIVE) H 08/21/18 12:26 Urine RBC None seen /hpf (0-5) 08/21/18 12:26 Urine WBC 25-50 /hpf (0-5) H 08/21/18 12:26 Ur Epithelial Cells None seen /hpf (0-5) 08/21/18 12:26 Urine Bacteria 4+ (NONE) H 08/21/18 12:26 Urine Culture Comments Culture to follow 08/21/18 12:26 Assessment/Plan - Narrative Narrative: 1. IV antibiotics 2. Aggressive Pulmonary therapy 3. Wean FIO2 down TR. 4. continue home meds. 5. diet and activity as tolerated. - Assessment/Plan (1) Acute respiratory failure with hypoxia and hypercapnia Problem: Acute (2) Bacterial pneumonia Problem: Acute (3) Depression Problem: Chronic Qualifiers: Depression Type: major depressive disorder Major depression recurrence: recurrent Active/Remission status: currently active Major depression episode severity: moderate Qualified Code(s): F33.1 - Major depressive disorder, recurrent, moderate (4) COPD exacerbation Problem: Acute (5) UTI (urinary tract infection) Problem: Acute Qualifiers: Urinary tract infection type: acute cystitis Hematuria presence: without hematuria Qualified Code(s): N30.00 - Acute cystitis without hematuria
[2018-08-21] MEDS: DIAZEPAM 5 MG TABLET PO SCH (16:19)
[2018-08-21] MEDS: SPIRONOLACTONE 25 MG TABLET PO SCH (16:20)
[2018-08-21] MEDS ORDERED: MONTELUKAST SODIUM 10 MG TABLET PO SCH (17:00)
[2018-08-21] MEDS ORDERED: QUEtiapine FUMARATE 25 MG TABLET PO SCH (21:00)
[2018-08-21] MEDS ORDERED: METOPROLOL SUCCINATE 25 MG TABLET.SA PO SCH (21:00)
[2018-08-21] MEDS: FLUTICASONE/SALMETEROL 14 PUFF DISK.W.DEV IH SCH (21:02)
[2018-08-21] MEDS: SERTRALINE HCL 100 MG TABLET PO SCH (21:03)
[2018-08-21] MEDS: CYCLOBENZAPRINE HCL 10 MG TABLET PO SCH (21:03)
[2018-08-22 06:14] LABS: Hematocrit 35.5 % (37.0-47.0); Hemoglobin 11.8 gm/dL (12.5-16.0); Mean Corpuscular Hemoglobin 30.3 pg (27-31); Mean Corpuscular Hgb Conc 33.2 g/dl (32-36); Mean Platelet Volume 10.2 fl (8-12.5); Neutrophil # 7.6 K/mm3 (1.3-6.0); Neutrophil % 85.5 % (42-75.0); Platelet Count 145 K/mm3 (150-450); Red Cell Distribution Width 13.3 % (11.5-14.0); White Blood Count 8.9 K/mm3 (4.0-10.5)
[2018-08-22 06:24] LABS: Anion Gap 11.7 mmol/L (6.8-13.8); BUN/Creatinine Ratio 16.7 (9.0-21.6); Calcium * 8.9 mg/dL (7.9-10.9); Carbon Dioxide 32.3 mmol/L (24-32.6); Estimated Creat Clear 58.3
[2018-08-22] MEDS ORDERED: LEVOTHYROXINE SODIUM 88 MCG TABLET PO SCH (07:00)
[2018-08-22] MEDS: CYCLOBENZAPRINE HCL 10 MG TABLET PO SCH (08:12)
[2018-08-22] MEDS: SPIRONOLACTONE 25 MG TABLET PO SCH (08:13)
[2018-08-22] MEDS: SERTRALINE HCL 100 MG TABLET PO SCH (08:13)
[2018-08-22] MEDS: FLUTICASONE/SALMETEROL 14 PUFF DISK.W.DEV IH SCH (08:14)
[2018-08-22] MEDS ORDERED: ROSUVASTATIN CALCIUM 10 MG TABLET PO SCH (09:00)
[2018-08-22] MEDS: DIAZEPAM 5 MG TABLET PO SCH (13:07)
[2018-08-22] MEDS ORDERED: LEVOFLOXACIN IN DEXTROSE 5 % 500 MG/100 ML BAG IV SCH (13:15)
--- NOTE | 2018-08-22 14:38 | DS ---
(1) Acute respiratory failure with hypoxia and hypercapnia Problem: Resolved (2) Bacterial pneumonia Problem: Suspected (3) Depression Problem: Chronic Qualifiers: Depression Type: major depressive disorder Major depression recurrence: recurrent Active/Remission status: currently active Major depression episode severity: moderate Qualified Code(s): F33.1 - Major depressive disorder, recurrent, moderate (4) COPD exacerbation Problem: Acute (5) UTI (urinary tract infection) Problem: Acute Qualifiers: Urinary tract infection type: acute cystitis Hematuria presence: without hematuria Qualified Code(s): N30.00 - Acute cystitis without hematuria Description of Stay: Iqra Champagne is a 68 yo wh female admitted through the ER with SOB, cough, wheezing, and mild hypoxemia. Her O2 requirement had increased from 2l nc in the daytime and 3.5L at hs with her CPAP to 4L continuously and still having O2 sats in the 88-90% range. She was started on antibiotics in the ER after appropriate cultures were drawn. She also received some steroids IV. Clinically she has congestion and rhonchi in the L lung and the CXR shows what I thought was a pneumonia but the radiologist says it has been there before and is just stable parenchymal scarring. She was also discovered to have a UTI for which she was asymptomatic. She has been treated for both a lower respiratory tract infection and the UTI. This morning her O2 sats are at 97% and her breathing is no longer labored or tachypneic. Her cough is more productive today and is described as light vanilla in color and mucousy. The urine culture is growing out a gram neg. bacillus, ID and C&S are pending. I have reviewed al of this with the pt. and her . They are comfortable going home. Procedures Performed: none Results and Findings: Pending Mircobiology Results 08/21/18 13:00 Blood Blood Culture - Preliminary NO GROWTH 24 HOURS 08/21/18 12:43 Blood Blood Culture - Preliminary NO GROWTH 24 HOURS 08/21/18 12:41 Urine,Clean Catch Urine Culture - Preliminary Gram Negative Bacilli Lab Pending Results 08/21/18 11:09: pCO2 48.1 H, pO2 60.0 L, HCO3 29.3 H, Total CO2 30.7 H, Base Excess 3.7 H, ABG pH 7.40, ABG O2 Sat (Measured) 90.8 L 08/21/18 11:20: WBC 11.1 H, RBC 4.06 L, Hgb 12.5, Hct 37.2, MCV 91.6, MCH 30.8, MCHC 33.6, RDW 13.5, Plt Count 148 L, MPV 9.9, Immature Gran % (Auto) 0.50 H, Immature Gran # (Auto) 0.06 H, Neutrophils % 85.6 H, Lymphocytes % 7.4 L, Monocytes % 5.0, Eosinophils % 1.2, Basophils % 0.3, Nucleated RBC % 0.0, N eutrophils # 9.5 H, Lymphocytes # 0.82 L, Monocytes # 0.6, Eosinophils # 0.1, Absolute Basophils 0.0 08/21/18 11:20: Sodium 136, Plasma Sodium 136, Potassium 3.9, Chloride 97, Carbon Dioxide 30.9, Anion Gap 12.0, BUN 14, Creatinine 0.95, Est GFR (Non-Af Amer) 62, BUN/Creatinine Ratio 14.7, Random Glucose 130 H, Calcium 8.7, Calcium Adj for Albumin 8.5, Total Bilirubin 0.7, AST 22, ALT 28, Alkaline Phosphatase 138, Troponin I Less than 0.017, B-Natriuretic Peptide 170, Total Protein 8.1, Albumin 3.8 08/21/18 12:26: Urine Color Yellow, Urine Appearance Slightly cloudy, Urine pH 7.0, Ur Specific [place] 1.015, Urine Protein Negative, Urine Glucose (UA) Negative, Urine Ketones Negative, Urine Blood Negative, Urine Nitrate Positive H, Urine Bilirubin Negative, Urine Urobilinogen Normal, Ur Leukocyte Esterase 100 H, Urine RBC None seen, Urine WBC 25-50 H, Ur Epithelial Cells None seen, Urine Bacteria 4+ H, Urine Culture Comments Culture to follow 08/22/18 06:00: WBC 8.9, RBC 3.90 L, Hgb 11.8 L, Hct 35.5 L, MCV 91.0, MCH 30.3, MCHC 33.2, RDW 13.3, Plt Count 145 L, MPV 10.2, Immature Gran % (Auto) 0.60 H, Immature Gran # (Auto) 0.05 H, Neutrophils % 85.5 H, Lymphocytes % 9.8 L, Monocytes % 3.9, Eosinophils % 0.1, Basophils % 0.1, Nucleated RBC % 0.0, Neutrophils # 7.6 H, Lymphocytes # 0.87 L, Monocytes # 0.4, Eosinophils # 0.0, Absolute Basophils 0.0 08/22/18 06:00: Sodium 136, Plasma Sodium 137, Potassium 4.0, Chloride 96 L, Carbon Dioxide 32.3, Anion Gap 11.7, BUN 14, Creatinine 0.84, Est GFR (Non-Af Amer) 71, BUN/Creatinine Ratio 16.7, Random Glucose 142 H, Calcium 8.9 Discharge Location: Home Disposition: Home self-care Condition: Fair Face to Face Encounter completed per [facility] Guidelines: No Discharge Activity: Activity as tolerated Discharge Diet: General/regular food Complete Home Medications List: Complete Home Medication List: Sertraline HCl [Zoloft] 100 mg PO BID 09/11/15 Albuterol Sulfate [Proair Hfa] 1 puff IH QID PRN 07/25/16 Albuterol Sulfate/Ipratropium [Duoneb 2.5-0.5MG/3ML Soln] 3 ml IH QID PRN 07/25/16 Atorvastatin Calcium [Lipitor] 20 mg PO DAILY 07/25/16 Umeclidinium [place] [Incruse Ellipta] 62.5 mcg IH DAILY 11/10/16 Cyclobenzaprine HCl [Flexeril] 10 mg PO BID PRN 03/20/18 Metoprolol Succinate 25 mg PO HS 03/20/18 Montelukast Sodium [Singulair] 10 mg PO DAILY@1700 03/20/18 Naproxen Sodium [Aleve] 220 mg PO BID PRN 03/20/18 guaiFENesin [Guaifenesin] 400 mg PO Q4H PRN 03/20/18 tramadol 50 mg tablet 50 mg PO Q4H PRN 30 Days #120 tab 05/11/18 spironolactone 25 mg tablet 25 mg PO BID@0900,1700 #60 tab 06/02/18 levothyroxine 88 mcg tablet 88 mcg PO DAILY@0700 #30 tab 06/03/18 quetiapine 25 mg tablet 25 mg PO HS #30 tab 07/30/18 Diazepam 10 mg PO TID 08/21/18 Fluticasone/Vilanterol [Breo Ellipta 200-25 Mcg INH] 1 each IH DAILY 08/21/18 Levofloxacin [Levaquin] 500 mg PO DAILY #10 tablet 08/22/18
[2018-08-22 15:07] VITALS: BP 136/65
== END 2018-08-22 15:54 | disposition home or self-care (01) ==
LOC: ER 10:52 → MS 10:52
PROVIDERS: ADMIT Family Medicine; ATTEND Family Medicine
DX: N30.00 Acute cystitis without hematuria; J15.9 Unspecified bacterial pneumonia; J96.02 Acute respiratory failure with hypercapnia; J96.01 Acute respiratory failure with hypoxia; F33.1 Major depressive disorder, recurrent, moderate; J44.1 Chronic obstructive pulmonary disease with (acute) exacerbation
CPT/HCPCS: 36415; 36600; 71020; 71046; 80048; 80053; 81001; 82803; 83519; 83880; 84484; 85025; 87040; 87077; 87086; 87186; 93005; 94640; 94664; 96365; 96375; 99285; G0378

== ENCOUNTER 2018-09-21 08:51 | Observation (INO) | payer BC, MEDICARE ==
[2018-09-21] MEDS ORDERED: ALBUTEROL SULFATE 2.5 MG/0.5 ML VIAL.NEB IH ONE ×2 (09:00→09:07)
[2018-09-21] MEDS ORDERED: ALBUTEROL SULFATE/IPRATROPIUM 3 ML NEBU IH ONE (09:00)
[2018-09-21] MEDS ORDERED: ACETAMINOPHEN 325 MG TABLET PO ONE (09:07)
--- NOTE | 2018-09-21 09:14 | ERNOTE ---
Dyspnea - General Presenting Symptoms: shortness of breath Time Seen by Provider: 09/21/18 08:51 Source: patient, family Exam Limitations: clinical condition - Immun/Allergies/Home Medications Immunizations: IMMUNIZATION HX Immunizations Up to Date Yes History of Influenza Vaccine Yes Hx Pneumococcal Vaccination Yes Allergies/Adverse Reactions: Allergies shellfish derived Allergy (Intermediate, Verified 09/21/18 09:04) eyes swelling, peeled Home Medications: HOME MEDICATIONS Sertraline HCl [Zoloft] 100 mg PO BID 09/11/15 [Last Taken Unknown] Albuterol Sulfate [Proair Hfa] 1 puff INHALATION QID PRN 07/25/16 [Last Taken Unknown] Albuterol Sulfate/Ipratropium [Duoneb 2.5-0.5MG/3ML Soln] 3 ml INHALATION QID PRN 07/25/16 [Last Taken Unknown] Atorvastatin Calcium [Lipitor] 20 mg PO DAILY 07/25/16 [Last Taken Unknown] Umeclidinium [place] [Incruse Ellipta] 62.5 mcg INHALATION DAILY 11/10/16 [Last Taken Unknown] Cyclobenzaprine HCl [Flexeril] 10 mg PO BID PRN 03/20/18 [Last Taken Unknown] Metoprolol Succinate 25 mg PO HS 03/20/18 [Last Taken Unknown] Montelukast Sodium [Singulair] 10 mg PO DAILY@1700 03/20/18 [Last Taken Unknown] Naproxen Sodium [Aleve] 220 mg PO BID PRN 03/20/18 [Last Taken Unknown] guaiFENesin [Guaifenesin] 400 mg PO Q4H PRN 03/20/18 [Last Taken Unknown] tramadol 50 mg tablet 50 mg PO Q4H PRN 30 Days #120 tab 05/11/18 [Last Taken Unknown] levothyroxine 88 mcg tablet 88 mcg PO DAILY@0700 #30 tab 06/03/18 [Last Taken Unknown] quetiapine 25 mg tablet 25 mg PO HS #30 tab 07/30/18 [Last Taken Unknown] Diazepam 10 mg PO TID 08/21/18 [Last Taken Unknown] Fluticasone/Vilanterol [Breo Ellipta 200-25 Mcg INH] 1 ea INHALATION DAILY 08/21/18 [Last Taken Unknown] Omeprazole 20 mg PO BID #30 08/25/18 [Last Taken Unknown] nystatin 100,000 unit/gram topical powder 1 applic TP BID #60 g 08/27/18 [Last Taken Unknown] spironolactone 25 mg tablet 25 mg PO BID@0900,1700 #60 tab 08/30/18 [Last Taken Unknown] - History of Present Illness Narrative: EMs reportst that patient started to complain of shortness of breath this morning, had a breathing treatment at home at 04:30 and another one with EMS on route Patient has COPD, is on 3liters O2 at home continuely, on arrival she O2 sat is 88%on 5liter Patient was seen in the ER two weeks ago for a pneumonia diagnosed on outpatient CT, patient had no symptoms at that time and 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 Denies: fever/chills, chest pain/discomfort, wheezing Prior Treatment: Reports: recently seen, currently on antibiotics Review of Systems - Review of Systems Constitutional: Present: recent illness, chills. Absent: fever ENT: Absent: nose congestion, sore throat Respiratory: Present: shortness of breath, cough Cardiology: Absent: chest pain Gastrointestinal/Abdominal: Absent: nausea, abdominal pain Genitourinary: Present: no symptoms reported Musculoskeletal: Absent: back pain Neurological: Absent: headache Medical History (Last Reviewed 09/21/18 @ 11:13 by Cheli Perez MD) Witnessed apneic spells (Chronic) Onset Date: ~10/15/15 Respiratory failure with hypoxia (Chronic) Onset Date: ~02/05/16 Psoriasis (Chronic) Onset Date: ~09/20/13 Oxygen dependent (Chronic) Onset Date: ~10/15/15 Obstructive sleep apnea (Chronic) Onset Date: ~11/06/15 Left leg pain (Chronic) Onset Date: ~06/22/15 Fracture, vertebral, lumbar closed (Chronic) Onset Date: ~07/10/14 Dizziness (Chronic) Onset Date: Unknown Constipation (Chronic) Onset Date: ~04/20/14 Benign positional vertigo (Chronic) Onset Date: ~04/13/14 Back pain (Chronic) Onset Date: ~06/22/15 Back muscle spasm (Chronic) Onset Date: ~06/22/15 Anxiety (Chronic) Onset Date: Unknown Allergic rhinitis (Chronic) Onset Date: ~09/20/13 History of hypothyroidism (Chronic) Hypertension (Chronic) History of depression (Chronic) Hx of pulmonary hypertension (Chronic) History of COPD (Chronic) Asthma, moderate persistent Surgical History: Surgical History (Last Reviewed 09/21/18 @ 11:13 by Cheli Perez MD) H/O tooth extraction Onset Date: Unknown History of tonsillectomy Onset Date: Unknown Hx of tonsillectomy Family History: Family History (Last Reviewed 09/21/18 @ 09:04 by Dara Padilla RN) Mother Family hx of colon cancer Father Family hx of prostate cancer Social History: Preferred Language Guamanian Smoking Status Former smoker Abuse History No History of abuse Psych History Hx of Anxiety,Hx of Depression Alcohol Use occasionally Drug Use none (Last Updated 08/28/18 @ 09:01 by Freddie Torres MD) No Social History Section defined Physical Exam - Physical Exam General Appearance: Present: wd/wn, alert, mild distress, anxious Head Exam: Present: normal inspection Eye Exam: Normal inspection: bilateral, PERRL: bilateral Ears, Nose, Throat: Present: normal pharynx Respiratory: Present: no accessory muscle use, lungs clear, decreased breath sounds, expiration (prolonged) Cardiovascular/Chest: Present: regular rate, rhythm, no murmur Gastrointestinal/Abdominal: Present: nontender, nondistended, soft Extremity Exam: Present: no edema Neurological Exam: Present: alert, normal mood/affect, disoriented to situation, other - has difficulty telling the story, answers to questions are intermittently not appropiate. Absent: disoriented to person, disoriented to time, disoriented to place Skin Exam: Present: normal color, warm/dry Progress - Results and Orders Patient's Lab Results:: I have reviewed the patient's lab results. - Vital Signs Patient's Vital Signs:: I have reviewed the patient's vital signs. Vital Signs: Vital Signs 09/21/18 08:51 09/21/18 09:04 Temperature 38.1 C H Pulse Rate 98 96 Respiratory Rate 23 H Blood Pressure 117/82 O2 Sat by Pulse Oximetry 88 L - X-Ray X-Ray #1 X-Ray: chest - No acute cardiopulmonary process detected Interpretation: Reviewed by me - Progress/Reassessment Chief Complaint: Dyspnea Progress Note-Subjective: 09/21/18 09:11 on 50% mask O2 sat 89% when measured on finger, when switching to measuring on ear, 95% 09/21/18 09:54 patient more comfortable, improved air movement after neb treatment discussed test results 09/21/18 10:12 offered admission patient agreed 09/21/18 10:14 discussed with crystal Pastrana to admit for observation for COPD exacerbation will get respiratory panel, will hold off on antibiotics for now Departure Clinical Impression: COPD exacerbation, Oxygen dependent Respiratory failure with hypoxia Qualifiers: Chronicity: acute on chronic Qualified Code(s): J96.21 - Acute and chronic r espiratory failure with hypoxia - Departure Disposition: Still a patient Condition: Stable
[2018-09-21 09:24] LABS: Hematocrit 36.9 % (37.0-47.0); Mean Cell Volume 92.5 fl (78-100); Mean Corpuscular Hemoglobin 30.1 pg (27-31); Mean Corpuscular Hgb Conc 32.5 g/dl (32-36); Mean Platelet Volume 9.4 fl (8-12.5); Neutrophil # 12.2 K/mm3 (1.3-6.0); Neutrophil % 89.4 % (42-75.0); Platelet Count 176 K/mm3 (150-450); Red Blood Count 3.99 M/mm3 (4.2-5.4); Red Cell Distribution Width 13.8 % (11.5-14.0); White Blood Count 13.7 K/mm3 (4.0-10.5)
[2018-09-21 09:42] LABS: Troponin I 0.024 ng/mL (0.00-0.10)
[2018-09-21 09:44] LABS: Albumin * 3.5 gm/dl (3.4-5.0); Anion Gap 12.5 mmol/L (6.8-13.8); BUN/Creatinine Ratio 16.5 (9.0-21.6); Bilirubin, Total 0.4 mg/dL (0.0-1.1); Ca. Corrected For Albumin 8.9 mg/dL (8.4-10.2); Calcium * 8.8 mg/dL (7.9-10.9); Carbon Dioxide 32.7 mmol/L (24-32.6); Potassium 4.2 mmol/L (3.4-4.6); Total Protein 7.9 gm/dL (6.2-8.2)
[2018-09-21] MEDS ORDERED: METHYLPREDNISOLONE SOD SUCC/PF 125 MG/2 ML VIAL IV ONE (09:47)
[2018-09-21] MEDS ORDERED: ALBUTEROL SULFATE 2.5 MG/0.5 ML VIAL.NEB IH PRN (10:52)
--- NOTE | 2018-09-21 11:34 | HP ---
Chief Complaint - Chief Complaint Date of Service: 09/21/18 Time of Service: 11:32 Chief Complaint: Respiratory distress - Couldn't breath! History of Present Illness: Pt is 68 yo WF with PMH of Chronic COPD and respiratory failure with hypoxia and hypercapnea, has been having worsening SOB and intermittant fevers for several days, with this am she felt feverish, confused and was hypoxic into the low 80's even on her usual 3LNC. She denies increased cough and has just recently finished levaquin for a UTI. In the ER she was placed on a NRB/ventimask in order to bring her sats up, as well as given IV solumedrol and neb treatment which did seem to help. Respiratory panel didn't show any positive tests. Her O2 sats were back to baseline at time of admission, but she was still very confused, so was place in observation to be sure her condition remained stable and didn't decompensate again and to be sure her memory/orientation returns to baseline. She had no complaints when I saw her except that she was having some dysuria. She is coughing but not productive. She does recognize me, but isn't sure of the month. She does act confused regarding details as to what happened and is moderately breathless (unable to complete sentence without taking a breath). Pt. is supposed to be on a trilogy at home on AVAPs mode, but she doesn't recall whether she is using this or not. Medical History (Last Reviewed 09/21/18 @ 11:41 by Layla Goldberg RN) Witnessed apneic spells (Chronic) Onset Date: ~10/15/15 Respiratory failure with hypoxia (Chronic) Onset Date: ~02/05/16 Psoriasis (Chronic) Onset Date: ~09/20/13 Oxygen dependent (Chronic) Onset Date: ~10/15/15 Obstructive sleep apnea (Chronic) Onset Date: ~11/06/15 Left leg pain (Chronic) Onset Date: ~06/22/15 Fracture, vertebral, lumbar closed (Chronic) Onset Date: ~04/20/14 Dizziness (Chronic) Onset Date: Unknown Constipation (Chronic) Onset Date: ~04/20/14 Benign positional vertigo (Chronic) Onset Date: ~04/13/14 Back pain (Chronic) Onset Date: ~06/22/15 Back muscle spasm (Chronic) Onset Date: ~06/22/15 Anxiety (Chronic) Onset Date: Unknown Allergic rhinitis (Chronic) Onset Date: ~09/20/13 History of hypothyroidism (Chronic) Hypertension (Chronic) History of depression (Chronic) Hx of pulmonary hypertension (Chronic) History of COPD (Chronic) Asthma, moderate persistent Surgical History: Surgical History (Last Reviewed 09/21/18 @ 11:41 by Layla Goldberg RN) H/O tooth extraction Onset Date: Unknown History of tonsillectomy Onset Date: Unknown Hx of tonsillectomy Family History: Family History (Last Reviewed 09/21/18 @ 11:41 by Layla Goldberg RN) Mother Family hx of colon cancer Father Family hx of prostate cancer Social History: Preferred Language Kazakh Smoking Status Former smoker Abuse History No History of abuse Psych History Hx of Anxiety,Hx of Depression Alcohol Use occasionally Drug Use none (Last Updated 08/28/18 @ 09:01 by Freddie Torres MD) No Social History Section defined Review Of Systems (GEN) - Review of Systems Generalized/Overall Review: Present: Weakness, Fever, Malaise, Fatigue. Absent: Chills EENTM: Present: No Symptoms Reported Respiratory: Present: Cough, Shortness of Breath. Absent: Orthopnea Cardiac: Absent: Chest Pain, Edema, Palpitations Abdominal: Absent: Nausea, Vomiting Genitourinary: Present: Burning. Absent: Itching, Urgency, Frequency, Hematuria Musculoskeletal: Present: No Symptoms Reported Neurological: Present: Anxiety, Depressed, Weakness Skin: Present: No Symptoms Reported Endocrine: Present: No Symptoms Reported Immunizations: IMMUNIZATION HX Immunizations Up to Date Yes History of Influenza Vaccine Yes Hx Pneumococcal Vaccination Yes Allergies/Adverse Reactions: Allergies Allergy/AdvReac Type Severity Reaction Status Date / Time shellfish derived Allergy Intermediate eyes Verified 09/21/18 11:41 swelling, peeled Home Medications: HOME MEDICATIONS Sertraline HCl [Zoloft] 100 mg PO BID 09/11/15 [Last Taken Unknown] Albuterol Sulfate [Proair Hfa] 1 puff INHALATION QID PRN 07/25/16 [Last Taken Unknown] Albuterol Sulfate/Ipratropium [Duoneb 2.5-0.5MG/3ML Soln] 3 ml INHALATION QID PRN 07/25/16 [Last Taken Unknown] Atorvastatin Calcium [Lipitor] 20 mg PO DAILY 07/25/16 [Last Taken Unknown] Umeclidinium [place] [Incruse Ellipta] 62.5 mcg INHALATION DAILY 11/10/16 [Last Taken Unknown] Cyclobenzaprine HCl [Flexeril] 10 mg PO BID PRN 03/20/18 [Last Taken Unknown] Metoprolol Succinate 25 mg PO HS 03/20/18 [Last Taken Unknown] Montelukast Sodium [Singulair] 10 mg PO DAILY@1700 03/20/18 [Last Taken Unknown] Naproxen Sodium [Aleve] 220 mg PO BID PRN 03/20/18 [Last Taken Unknown] guaiFENesin [Guaifenesin] 400 mg PO Q4H PRN 03/20/18 [Last Taken Unknown] tramadol 50 mg tablet 50 mg PO Q4H PRN 30 Days #120 tab 05/11/18 [Last Taken Unknown] levothyroxine 88 mcg tablet 88 mcg PO DAILY@0700 #30 tab 06/03/18 [Last Taken Unknown] quetiapine 25 mg tablet 25 mg PO HS #30 tab 07/30/18 [Last Taken Unknown] Diazepam 10 mg PO TID 08/21/18 [Last Taken Unknown] Fluticasone/Vilanterol [Breo Ellipta 200-25 Mcg INH] 1 ea INHALATION DAILY 08/21/18 [Last Taken Unknown] Omeprazole 20 mg PO BID #30 tablet.dr 08/25/18 [Last Taken Unknown] nystatin 100,000 unit/gram topical powder 1 applic TP BID #60 g 08/27/18 [Last Taken Unknown] spironolactone 25 mg tablet 25 mg PO BID@0900,1700 #60 tab 08/30/18 [Last Taken Unknown] Exam - Exam Vital Signs: Vital Signs - Last Taken Temp 37.2 C 09/21/18 09:48 Pulse 87 09/21/18 11:00 Resp 22 H 09/21/18 11:00 BP 117/56 09/21/18 11:00 Pulse Ox 92 L 09/21/18 11:00 Constitutional: Present: Alert, Oriented x3, Cooperative, Mild distress, Moderate distress Eye Exam: bilateral eye: normal inspection, PERRL, EOMI Neck: Present: supple Respiratory: Present: decreased breath sounds, accessory muscle use, expiration (prolonged) Cardiovascular/Chest: Present: regular rate, rhythm, no murmur Abdomen: Present: Normal bowel sounds, soft, nontender, nondistended, no rebound tenderness, no hepatospenomegaly Extremity: Present: normal inspection, no pedal edema, no calf tenderness Skin Exam: Present: normal color, warm/dry Neurologic: Present: normal mood/affect. Absent: oriented x 3 Appearance: Present: appropriate appearance, neat, impaired recent memory Eye contact: Present: cooperative, good eye contact Thoughts: Present: normal thought pattern, no apparent hallucination Diagnostic Studies: Abnormal Lab Results 09/21/18 09/21/18 09/21/18 Range/Units 09:08 09:15 09:15 WBC 13.7 H (4.0-10.5) K/mm3 RBC 3.99 L (4.2-5.4) M/mm3 Hgb 12.0 L (12.5-16.0) gm/dL Hct 36.9 L (37.0-47.0) % Immature Gran % (Auto) 0.50 H (0.001-0.429) % Immature Gran # (Auto) 0.07 H (0.000-0.0310) K/mm3 Neutrophils % 89.4 H (42-75.0) % Lymphocytes % 5.6 L (20-51) % Neutrophils # 12.2 H (1.3-6.0) K/mm3 Lymphocytes # 0.76 L (1.5-3.5) k/mm3 pO2 45.0 L (83.0-108.0) mmHg Total CO2 27.5 H (19.0-24.0) mmol/L ABG O2 Sat (Measured) 80.9 L (94.0-98.0) % Chloride 96 L (97-106) mmol/L Carbon Dioxide 32.7 H (24-32.6) mmol/L Random Glucose 144 H (70-110) mg/dL B-Natriuretic Peptide 386 H (5-325) pg/mL Laboratory Results WBC 13.7 K/mm3 (4.0-10.5) H 09/21/18 09:15 RBC 3.99 M/mm3 (4.2-5.4) L 09/21/18 09:15 Hgb 12.0 gm/dL (12.5-16.0) L 09/21/18 09:15 Hct 36.9 % (37.0-47.0) L 09/21/18 09:15 MCV 92.5 fl (78-100) 09/21/18 09:15 MCH 30.1 pg (27-31) 09/21/18 09:15 MCHC 32.5 g/dl (32-36) 09/21/18 09:15 RDW 13.8 % (11.5-14.0) 09/21/18 09:15 Plt Count 176 K/mm3 (150-450) 09/21/18 09:15 MPV 9.4 fl (8-12.5) 09/21/18 09:15 Immature Gran % (Auto) 0.50 % (0.001-0.429) H 09/21/18 09:15 Immature Gran # (Auto) 0.07 K/mm3 (0.000-0.0310) H 09/21/18 09:15 Neutrophils % 89.4 % (42-75.0) H 09/21/18 09:15 Lymphocytes % 5.6 % (20-51) L 09/21/18 09:15 Monocytes % 3.4 % (0.0-9) 09/21/18 09:15 Eosinophils % 0.9 % (0.0-3.0) 09/21/18 09:15 Basophils % 0.2 % (0.0-1.0) 09/21/18 09:15 Nucleated RBC % 0.0 k/mm3 (0-1) 09/21/18 09:15 Neutrophils # 12.2 K/mm3 (1.3-6.0) H 09/21/18 09:15 Lymphocytes # 0.76 k/mm3 (1.5-3.5) L 09/21/18 09:15 Monocytes # 0.5 k/mm3 (0.0-1.0) 09/21/18 09:15 Eosinophils # 0.1 k/mm3 (0.0-0.7) 09/21/18 09:15 Absolute Basophils 0.0 k/mm3 (0.0-0.1) 09/21/18 09:15 pCO2 43.1 mmHg (32.0-45.0) 09/21/18 09:08 pO2 45.0 mmHg (83.0-108.0) L 09/21/18 09:08 HCO3 26.2 mmol/L (21.0-28.0) 09/21/18 09:08 Total CO2 27.5 mmol/L (19.0-24.0) H 09/21/18 09:08 Base Excess 1.1 mmol/L (-2.0-3.0) 09/21/18 09:08 ABG pH 7.40 (7.35-7.45) 09/21/18 09:08 ABG O2 Sat (Measured) 80.9 % (94.0-98.0) L 09/21/18 09:08 Sodium 137 mmol/L (132-142) 09/21/18 09:15 Plasma Sodium 138 mmol/L (130-142) 09/21/18 09:15 Potassium 4.2 mmol/L (3.4-4.6) 09/21/18 09:15 Chloride 96 mmol/L (97-106) L 09/21/18 09:15 Carbon Dioxide 32.7 mmol/L (24-32.6) H 09/21/18 09:15 Anion Gap 12.5 mmol/L (6.8-13.8) 09/21/18 09:15 BUN 14 mg/dL (3-23) 09/21/18 09:15 Creatinine 0.85 mg/dL (0.4-1.4) 09/21/18 09:15 Est GFR (Non-Af Amer) 70 mL/min (60-130) 09/21/18 09:15 BUN/Creatinine Ratio 16.5 (9.0-21.6) 09/21/18 09:15 Random Glucose 144 mg/dL (70-110) H 09/21/18 09:15 Lactic Acid, Venous 1.1 mmol/L (0.4-2.0) 09/21/18 09:15 Calcium 8.8 mg/dL (7.9-10.9) 09/21/18 09:15 Calcium Adj for Albumin 8.9 mg/dL (8.4-10.2) 09/21/18 09:15 Total Bilirubin 0.4 mg/dL (0.0-1.1) 09/21/18 09:15 AST 22 U/L (0-48) 09/21/18 09:15 ALT 23 U/L (19-67) 09/21/18 09:15 Alkaline Phosphatase 151 U/L (50-170) 09/21/18 09:15 Troponin I 0.024 ng/mL (0.00-0.10) 09/21/18 09:15 B-Natriuretic Peptide 386 pg/mL (5-325) H 09/21/18 09:15 Total Protein 7.9 gm/dL (6.2-8.2) 09/21/18 09:15 Albumin 3.5 gm/dl (3.4-5.0) 09/21/18 09:15 Assessment/Plan - Assessment/Plan (1) Respiratory failure with hypoxia Assessment: seemed to improve with nebs, IV steroids and O2. will continue Problem: Chronic Qualifiers: Chronicity: acute on chronic Qualified Code(s): J96.21 - Acute and chronic respiratory failure with hypoxia (2) Oxygen dependent Assessment: continue O2 at 3LNC which is her baseline. Should she start to fail will place her on BIPAP at 12/5 to start maintaining sats in the low 90's. Problem: Chronic (3) Obstructive sleep apnea Assessment: will most likely need BIPAP tonight, though prefer Trilogy and AVAPs mode. Problem: Chronic (4) COPD exacerbation Assessment: will do iv steroids. given negative Respiratory panel and possible UTI being source of infection, will place her on bactrim and get urine culture. Problem: Acute (5) Hypertension Assessment: Stable, no changes at this time. Continue current treatment. Problem: Chronic Qualifiers: Hypertension type: essential hypertension Qualified Code(s): I10 - Essential (primary) hypertension (6) History of depression Assessment: Stable, no changes at this time. Continue current treatment. Problem: Chronic (7) Hx of pulmonary hypertension Assessment: Stable, no changes at this time. Continue current treatment. Problem: Chronic (8) Fever Assessment: will place on bactrim for possible UTI source. Problem: Acute Qualifiers: Fever type: unspecified Qualified Code(s): R50.9 - Fever, unspecified (9) Urinary tract infection with pyuria Problem: Acute (10) Discharge planning issues Assessment: Pt. no longer in severe respiratory distress - she is back at baseline O2 use. Steroids and nebs have helped. Anticipate discharge home tomorrow if she continues to be stable and no source for her fever is found that would require continued hospitalization. Problem: Acute
[2018-09-21 12:28] LABS: Urine Bacteria 2+; Urine RBC None Seen /hpf (0-5)
[2018-09-21] MEDS ORDERED: guaiFENesin 100 MG/5 ML BTL PO PRN (13:23)
[2018-09-21] MEDS ORDERED: traMADol HCL 50 MG TABLET PO PRN (13:23)
[2018-09-21] MEDS: ALBUTEROL SULFATE/IPRATROPIUM 3 ML NEBU IH SCH ×2 (14:57→18:26)
[2018-09-21] MEDS: SULFAMETHOXAZOLE/TRIMETHOPRIM 1 TAB TABLET PO SCH ×2 (15:07→20:56)
[2018-09-21] MEDS ORDERED: MONTELUKAST SODIUM 10 MG TABLET PO SCH (17:00)
[2018-09-21] MEDS: SPIRONOLACTONE 25 MG TABLET PO SCH (17:52)
[2018-09-21] MEDS: FLUTICASONE/SALMETEROL 14 PUFF DISK.W.DEV IH SCH (20:54)
[2018-09-21] MEDS: SERTRALINE HCL 100 MG TABLET PO SCH (20:57)
[2018-09-21] MEDS ORDERED: QUEtiapine FUMARATE 25 MG TABLET PO SCH (21:00)
[2018-09-21] MEDS ORDERED: METOPROLOL SUCCINATE 25 MG TABLET.SA PO SCH (21:00)
[2018-09-21] MEDS: NYSTATIN 15 APPL BTL TP SCH (21:04)
[2018-09-22] MEDS ORDERED: DIAZEPAM 5 MG TABLET PO ONE (01:45)
[2018-09-22] MEDS: ALBUTEROL SULFATE/IPRATROPIUM 3 ML NEBU IH SCH ×2 (06:15→10:52)
[2018-09-22] MEDS ORDERED: LEVOTHYROXINE SODIUM 88 MCG TABLET PO SCH (07:00)
--- NOTE | 2018-09-22 07:48 | PN ---
Progess Note - Interim Date: 09/22/18 Time: 07:45 Narrative: 09/22/18 07:45 Pt. a little confused this am, otherwise with no complaints and vitals have been fine. No fevers since admit yesterday am. Had a valium last pm to help her relax and sleep. PE: Trying to get out of bed, euphoric, confused, but does know who I am. E>I, but lungs have fair AE which is better than yesterday. A/P: confusion - due to valium last pm most likely, though could be from her UTI. will hold any further doses, cut her to 5mg dose at time of discharge. Anticipate discharge home later today. UTI - continue bactrim. UCx pending COPD - doing well this am after single dose of solumedrol, no further steroids at this time. continue nebs.
[2018-09-22] MEDS ORDERED: TIOTROPIUM BROMIDE 5 CAP INHALER IH SCH (09:00)
[2018-09-22] MEDS ORDERED: DIAZEPAM 10 MG PO SCH (09:00)
[2018-09-22] MEDS ORDERED: ROSUVASTATIN CALCIUM 10 MG TABLET PO SCH (09:00)
[2018-09-22] MEDS: SPIRONOLACTONE 25 MG TABLET PO SCH (09:36)
[2018-09-22] MEDS: FLUTICASONE/SALMETEROL 14 PUFF DISK.W.DEV IH SCH (09:36)
[2018-09-22] MEDS: SERTRALINE HCL 100 MG TABLET PO SCH (09:36)
[2018-09-22] MEDS: SULFAMETHOXAZOLE/TRIMETHOPRIM 1 TAB TABLET PO SCH (09:36)
[2018-09-22] MEDS: NYSTATIN 15 APPL BTL TP SCH (09:37)
--- NOTE | 2018-09-22 11:50 | DS ---
(1) Respiratory failure with hypoxia Problem: Chronic Qualifiers: Chronicity: acute on chronic Qualified Code(s): J96.21 - Acute and chronic respiratory failure with hypoxia (2) Oxygen dependent Problem: Chronic (3) Obstructive sleep apnea Problem: Chronic (4) COPD exacerbation Problem: Acute (5) Hypertension Problem: Chronic Qualifiers: Hypertension type: essential hypertension Qualified Code(s): I10 - Essential (primary) hypertension (6) History of depression Problem: Chronic (7) Hx of pulmonary hypertension Problem: Chronic (8) Fever Problem: Acute Qualifiers: Fever type: unspecified Qualified Code(s): R50.9 - Fever, unspecified (9) Urinary tract infection with pyuria Problem: Acute (10) Discharge planning issues Problem: Acute (11) Encephalopathy acute Diagnosis(s): cause most likely due to acute on chronic respiratory failure secondary to exacerbation of Chronic COPD, combined with UTI. Resolved rapidly with treatment of her underlying issues. Problem: Resolved Description of Stay: Pt. admitted to obs due to Fever without a source combined with acute on chronic respiratory failure with O2 sats in low 80's and worsening SOB combined with associated encephalopathy most likely due to the respiratory failure but could also be due to infection. her mentation did clear up quickly, though was off some this am, most likely due to valium she received last night (even though it was her usual dose strength). This did resolve this am, as well as did her fevers and her lung function improved after a single dose of solumedrol and scheduled nebs. She was discharged back home with patient back to her baseline levels. She will continued on her usual meds, though will reduce her valium to half tab TID and keep her on the bactrim DS for UTI. Procedures Performed: none Results and Findings: Pending Mircobiology Results 09/21/18 09:33 Blood Blood Culture - Preliminary NO GROWTH 24 HOURS 09/21/18 09:15 Blood Blood Culture - Preliminary NO GROWTH 24 HOURS Lab Pending Results 09/21/18 09:08: pCO2 43.1, pO2 45.0 L, HCO3 26.2, Total CO2 27.5 H, Base Excess 1.1, ABG pH 7.40, ABG O2 Sat (Measured) 80.9 L 09/21/18 09:15: WBC 13.7 H, RBC 3.99 L, Hgb 12.0 L, Hct 36.9 L, MCV 92.5, MCH 30.1, MCHC 32.5, RDW 13.8, Plt Count 176, MPV 9.4, Immature Gran % (Auto) 0.50 H, Immature Gran # (Auto) 0.07 H, Neutrophils % 89.4 H, Lymphocytes % 5.6 L, Monocytes % 3.4, Eosinophils % 0.9, Basophils % 0.2, Nucleated RBC % 0.0, Neutrophils # 12.2 H, Lymphocytes # 0.76 L, Monocytes # 0.5, Eosinophils # 0.1, Absolute Basophils 0.0 09/21/18 09:15: Sodium 137, Plasma Sodium 138, Potassium 4.2, Chloride 96 L, Carbon Dioxide 32.7 H, Anion Gap 12.5, BUN 14, Creatinine 0.85, Est GFR (Non-Af Amer) 70, BUN/Creatinine Ratio 16.5, Random Glucose 144 H, Calcium 8.8, Calcium Adj for Albumin 8.9, Total Bilirubin 0.4, AST 22, ALT 23, Alkaline Phosphatase 151, Troponin I 0.024, B-Natriuretic Peptide 386 H, Total Protein 7.9, Albumin 3.5 09/21/18 09:15: Lactic Acid, Venous 1.1 09/21/18 10:26: Chlamy pneumoniae PCR Not detected, Adenovirus (PCR) Not detected, B. pertussis DNA (PCR) Not detected, Coronavirus OC43 (PCR) Not detected, Coronavirus HKU1 (PCR) Not detected, Coronavirus 229E (PCR) Not detected, Coronavirus NL63 (PCR) Not detected, Human Metapneumovir PCR Not detected, Influenza A (H1) PCR Not detected, Influenza A (H1N1) PCR Not detected, Influenza A (H3) PCR Not detected, Influenza B (RT-PCR) Not detected, M. pneumoniae (PCR) Not detected, Parainfluenza 1 (PCR) Not detected, Parainfluenza 2 (PCR) Not detected, Parainfluenza 3 (PCR) Not detected, Parainfluenza 4 (PCR) Not detected, RSV (PCR) Not detected, Rhinovirus (PCR) Not detected 09/21/18 11:55: Urine RBC None seen, Urine WBC 5-10 H, Ur Epithelial Cells 0-5, Urine Bacteria 2+ H Discharge Location: Home Disposition: Home self-care Condition: Stable Discharge Activity: Activity as tolerated Discharge Diet: General/regular food Referrals: Freddie Torres MD [Primary Care Provider] - One Week Additional Patient Instructions (free text): -Please make TCM appointment unless snf discharge. Thank you! Nadia @ [phone]. Prescriptions (Any new or edited meds): Diazepam 5 mg PO TID #15 tablet Sulfamethoxazole/Trimethoprim [Bactrim Ds] 1 tab PO BID #12 tablet Complete Home Medications List: Complete Home Medication List: Sertraline HCl [Zoloft] 100 mg PO BID 09/11/15 Albuterol Sulfate [Proair Hfa] 1 puff INHALATION QID PRN 07/25/16 Albuterol Sulfate/Ipratropium [Duoneb 2.5-0.5MG/3ML Soln] 3 ml INHALATION QID PRN 07/25/16 Atorvastatin Calcium [Lipitor] 20 mg PO DAILY 07/25/16 Umeclidinium [place] [Incruse Ellipta] 62.5 mcg INHALATION DAILY 11/10/16 Cyclobenzaprine HCl [Flexeril] 10 mg PO BID PRN 03/20/18 Metoprolol Succinate 25 mg PO HS 03/20/18 Montelukast Sodium [Singulair] 10 mg PO DAILY@1700 03/20/18 Naproxen Sodium [Aleve] 220 mg PO BID PRN 03/20/18 guaiFENesin [Guaifenesin] 400 mg PO Q4H PRN 03/20/18 tramadol 50 mg tablet 50 mg PO Q4H PRN 30 Days #120 tab 05/11/18 levothyroxine 88 mcg tablet 88 mcg PO DAILY@0700 #30 tab 06/03/18 quetiapine 25 mg tablet 25 mg PO HS #30 tab 07/30/18 Fluticasone/Vilanterol [Breo Ellipta 200-25 Mcg INH] 1 ea INHALATION DAILY 08/21/18 Omeprazole 20 mg PO BID #30 tablet. 08/25/18 nystatin 100,000 unit/gram topical powder 1 applic TP BID #60 g 08/27/18 spironolactone 25 mg tablet 25 mg PO BID@0900,1700 #60 tab 08/30/18 Diazepam 5 mg PO TID #15 tablet 09/22/18 Sulfamethoxazole/Trimethoprim [Bactrim Ds] 1 tab PO BID #12 tablet 09/22/18
[2018-09-22 14:26] VITALS: BP 116/56
== END 2018-09-22 13:57 | disposition home or self-care (01) ==
LOC: MS 08:51 → ER 08:51 → MS 11:17
PROVIDERS: ADMIT Family Medicine; ATTEND Family Medicine
CPT/HCPCS: 36415; 36600; 71010; 71045; 80053; 81015; 82803; 83519; 83605; 83880; 84484; 85025; 87040; 87086; 87633; 93005; 94640; 94664; 94760; 96374; 99285; G0378

== ENCOUNTER 2019-09-06 09:43 | Observation (INO) ==
--- NOTE | 2019-09-06 09:58 | ERNOTE ---
Abdominal HPI - General Chief Complaint: Abdominal Pain Time Seen by Provider: 09/06/19 09:56 Source: patient, EMS Exam Limitations: no limitations - Immun/Allergies/Home Medications Immunizatons: IMMUNIZATION HX Immunizations Up to Date Yes History of Influenza Vaccine Yes Hx Pneumococcal Vaccination Yes Allergies/Adverse Reactions: Allergies shellfish derived Allergy (Intermediate, Verified 06/16/19 13:12) eyes swelling, peeled Home Medications: HOME MEDICATIONS Albuterol Sulfate [Proair Hfa] 1 puff INHALATION QID PRN 07/25/16 [Last Taken Unknown] Albuterol Sulfate/Ipratropium [Duoneb 2.5-0.5MG/3ML Soln] 3 ml INHALATION QID PRN 07/25/16 [Last Taken Unknown] Umeclidinium [place] [Incruse Ellipta] 62.5 mcg INHALATION DAILY 11/10/16 [Last Taken Unknown] Cyclobenzaprine HCl [Flexeril] 10 mg PO BID PRN 03/20/18 [Last Taken Unknown] Naproxen Sodium [Aleve] 220 mg PO BID PRN 03/20/18 [Last Taken Unknown] Fluticasone/Vilanterol [Breo Ellipta 200-25 Mcg INH] 1 ea INHALATION DAILY 08/21/18 [Last Taken Unknown] nystatin 100,000 unit/gram topical powder 1 applic TP BID #60 g 08/27/18 [Last Taken Unknown] guaifenesin 1,200 mg tablet, extended release 12 hr 1,200 mg PO Q12H 01/07/19 [Last Taken Unknown] ipratropium bromide 0.02 % solution for inhalation 2.5 ml IH QID PRN 01/07/19 [Last Taken Unknown] metoprolol succinate 50 mg tablet,extended release 24 hr 25 mg PO HS #30 tab 01/24/19 [Last Taken Unknown] tramadol 50 mg tablet 50 mg PO Q6H PRN #120 tab 02/27/19 [Last Taken Unknown] levothyroxine 88 mcg tablet See Rx Instructions .ROUTE .COMPLEX #30 tablet 04/22/19 [Last Taken Unknown] montelukast 10 mg tablet See Rx Instructions .ROUTE .COMPLEX #30 tablet 04/22/19 [Last Taken Unknown] quetiapine 25 mg tablet See Rx Instructions .ROUTE .COMPLEX #30 tablet 04/22/19 [Last Taken Unknown] sertraline 100 mg tablet See Rx Instructions .ROUTE .COMPLEX #60 tablet 04/22/19 [Last Taken Unknown] albuterol sulfate 90 mcg/actuation aerosol inhaler 2 inh IH Q6H PRN #18 g 05/23/19 [Last Taken Unknown] atorvastatin 20 mg tablet See Rx Instructions .ROUTE .COMPLEX #30 tablet 07/20/19 [Last Taken Unknown] spironolactone 25 mg tablet See Rx Instructions .ROUTE .COMPLEX #60 tablet 07/20/19 [Last Taken Unknown] diazepam 10 mg tablet See Rx Instructions .ROUTE .COMPLEX #90 tablet 08/21/19 [Last Taken Unknown] - History of Present Illness Narrative: Patient states that approximately 2 hours prior to arrival she developed sudden severe right lower quadrant abdominal pain. Patient states prior to that she was having no problem of any kind. Timing: constant, intermittent Quality: moderate Activities at Onset: none Associated Symptoms: Present: denies symptoms Prior Abdominal Problems: Present: none Review of Systems - Review of Systems Constitutional: Present: See HPI EYE: Present: no symptoms reported ENT: Present: no symptoms reported Respiratory: Present: no symptoms reported Cardiology: Present: no symptoms reported Gastrointestinal/Abdominal: Present: See HPI Genitourinary: Present: no symptoms reported Musculoskeletal: Present: no symptoms reported Skin: Present: no symptoms reported Neurological: Present: no symptoms reported Endocrine: Present: no symptoms reported Hematologic/Lymphatic: Present: no symptoms reported Psych: Present: no symptoms reported Medical History (Last Reviewed 09/06/19 @ 11:44 by Matilde Nascimento RN) Witnessed apneic spells (Chronic) Onset Date: ~10/15/15 Respiratory failure with hypoxia (Chronic) Onset Date: ~02/05/16 Psoriasis (Chronic) Onset Date: ~09/20/13 Oxygen dependent (Chronic) Onset Date: ~10/15/15 Obstructive sleep apnea (Chronic) Onset Date: ~11/06/15 Left leg pain (Chronic) Onset Date: ~06/22/15 Fracture, vertebral, lumbar closed (Chronic) Onset Date: ~04/20/14 Dizziness (Chronic) Onset Date: Unknown Constipation (Chronic) Onset Date: ~04/20/14 Benign positional vertigo (Chronic) Onset Date: ~04/13/14 Back pain (Chronic) Onset Date: ~06/22/15 Back muscle spasm (Chronic) Onset Date: ~06/22/15 Anxiety (Chronic) Onset Date: Unknown Allergic rhinitis (Chronic) Onset Date: ~09/20/13 History of hypothyroidism (Chronic) Hypertension (Chronic) History of depression (Chronic) Hx of pulmonary hypertension (Chronic) History of COPD (Chronic) Asthma, moderate persistent Surgical History: Surgical History (Last Reviewed 09/06/19 @ 11:44 by Matilde Nascimento RN) H/O tooth extraction Onset Date: Unknown full mouth History of tonsillectomy Onset Date: Unknown Family History: Family History (Last Reviewed 09/06/19 @ 11:44 by Matilde Nascimento RN) Mother , age 91-Alzheimers Cancer colon ca-dx age 30-40's Alzheimers disease Father , age 86-cancer Cancer prostate ca-dx age 70's, colon ca at 75. Brother Alive and well Grandfather Cancer maternal-colon ca-unknown age of dx Aunt Cancer maternal aunt-colon ca-dx age 40's Social History: (Last Reviewed 09/06/19 @ 11:44 by Matilde Nascimento RN) Social History: Marital status: household members: spouse number of children: 3 current occupational status: retired Service: No Tobacco: Smoking Status: Former smoker Alcohol: alcohol intake: current Alcohol type: wine alcohol intake frequency: a few times a week Substance Use: substance use type: does not use Dietary Habits: caffeine: Yes Personal Safety: victim of physical abuse: No victim of emotional abuse: No Physical Exam - Physical Exam General Appearance: Present: wd/wn, alert, moderate distress Head Exam: Present: normal inspection, no evidence of injury Eye Exam: Normal inspection: bilateral, PERRL: bilateral Ears, Nose, Throat: Present: normal ENT inspection, H, normal pharynx Neck: Present: normal inspection, nontender Respiratory: Present: no respiratory distress, normal breath sounds, no accessory muscle use, chest nontender, lungs clear Cardiovascular/Chest: Present: regular rate, rhythm, no murmur, normal peripheral pulses Gastrointestinal/Abdominal: Present: normal bowel sounds, nondistended, no organomegaly, tenderness - Primarily in the right lower quadrant, guarding, McBurney sign - Equivocal Rectal Exam: Present: deferred Back Exam: Present: normal inspection, normal range of motion Extremity Exam: Present: normal inspection, non-tender, no edema, normal range of motion Neurological Exam: Present: alert, oriented, normal mood/affect Skin Exam: Present: normal color, warm/dry Lymphatic Exam: Present: no adenopathy Progress - Results and Orders Patient's Lab Results:: I have reviewed the patient's lab results. - Vital Signs Patient's Vital Signs:: I have reviewed the patient's vital signs. Vital Signs: Vital Signs 09/06/19 09:48 Temperature 37.5 C Pulse Rate 88 Respiratory Rate 23 H Blood Pressure 143/58 O2 Sat by Pulse Oximetry 94 - X-Ray X-Ray #1 X-Ray: abdomen Interpretation: Reviewed by me - CT/Ultrasound CT/Ultrasound Narrative: CT the abdomen pelvis was reviewed by me - Progress/Reassessment Chief Complaint: Abdominal Pain Plan - Plan Plan: Patient appears to have acute appendicitis as noted on the CT examination. I reviewed the CT both with Dr. Miller, the radiologist, and Dr. Lamb, the on-call surgeon and he agrees to come over and examined the patient. Dr. Lamb was here to examine the patient and he does not believe that she has acute appendicitis at this juncture. Given the incredible spike in fever, the abdominal pain and the confusion patient will be admitted at least overnight and the surgeon will come back and to reexamine her at a later date. Departure Clinical Impression: Fever and chills Abdominal pain Qualifiers: Abdominal location: right lower quadrant Qualified Code(s): R10.31 - Right lower quadrant pain - Departure Disposition: Still a patient Condition: Fair Referrals: Freddie Torres MD [Primary Care Provider] -
[2019-09-06 10:18] LABS: Hematocrit 43.8 % (37.0-47.0); Hemoglobin 14.2 gm/dL (12.5-16.0); Mean Cell Volume 97.8 fl (78-100); Mean Corpuscular Hemoglobin 31.7 pg (27-31); Mean Corpuscular Hgb Conc 32.4 g/dl (32-36); Mean Platelet Volume 9.8 fl (8-12.5); Neutrophil # 7.8 K/mm3 (1.3-6.0); Neutrophil % 85.3 % (42-75.0); Platelet Count 157 K/mm3 (150-450); Red Blood Count 4.48 M/mm3 (4.2-5.4); Red Cell Distribution Width 14.1 % (11.5-14.0); White Blood Count 9.1 K/mm3 (4.0-10.5)
[2019-09-06 10:50] LABS: Urine Appearance Clear (CLEAR); Urine Bacteria 1+; Urine Bilirubin Negative (NEGATIVE); Urine Blood Negative /ul (NEGATIVE); Urine Color Yellow; Urine Ketone Negative (NEGATIVE); Urine Nitrite Positive (NEGATIVE); Urine Protein Negative (NEGATIVE); Urine RBC None Seen /hpf (0-5); Urine Specific Gravity 1.015 SP.GR. (1.005-1.010); Urine Urobilinogen Normal (NORMAL); Urine WBC None Seen /hpf (0-5); Urine pH 6.5 pH (5.0-7.0)
[2019-09-06 10:55] LABS: Albumin * 4.4 gm/dl (3.4-5.0); Anion Gap 10.3 mmol/L (6.8-13.8); BUN/Creatinine Ratio 15.1 (9.0-21.6); Bilirubin, Total 0.5 mg/dL (0.0-1.1); Ca. Corrected For Albumin 8.5 mg/dL (8.4-10.2); Calcium * 9.1 mg/dL (7.9-10.9); Carbon Dioxide 32.8 mmol/L (24-32.6); Potassium 4.1 mmol/L (3.4-4.6); Total Protein 8.7 gm/dL (6.2-8.2)
[2019-09-06] MEDS ORDERED: DIATRIZOATE MEGLUMINE, SODIUM 30 ML BTL PO ONE (11:33)
[2019-09-06] MEDS ORDERED: ONDANSETRON HCL/PF 2 MG/ML VIAL IV ONE (12:03)
[2019-09-06] MEDS ORDERED: ACETAMINOPHEN 1,000 MG/100 ML BTL IV ONE (13:11)
[2019-09-06] MEDS ORDERED: cefTRIAXone SODIUM 1,000 MG/100 ML BAG IV ONE (13:12)
[2019-09-06] MEDS ORDERED: NORMAL SALINE 1,000 ML IV ONE ×2 (13:12→14:45)
[2019-09-06] MEDS ORDERED: traMADol HCL 50 MG TABLET PO PRN (17:06)
--- NOTE | 2019-09-06 17:39 | HP ---
Chief Complaint - Chief Complaint Date of Service: 09/06/19 Time of Service: 17:08 Chief Complaint: Abdominal Pain History of Present Illness: Iqra is a 69 yo female who presented with the sudden onset of severe abdominal pain. She reports she awoke at 530 this morning and felt well and in her usual state of health. At around 830 she had severe abdominal pain that began. She called 911 and was given fentanyl during transport due to severity of pain. Upon arrival she had abdominal xray and CT which showed inflammation of appendix, small bowel, and ovarian cyst. 1. Mildly distended and fluid filled appearance of the appendix, with adjacent stranding noted. Consider early acute appendicitis. 2. Single loop of small bowel in the left side of the abdomen, which appears to be mildly dilated with a focal area of bowel wall thickening/edema. Consider localized enteritis, versus possible early/partial obstruction. 3. Incidental dominant cystic structure of the right adnexa/ovary measuring up to 3.1 cm in diameter. Recommend routine follow-up by pelvic ultrasound. 4. Gas within the urinary bladder, and uterine cervix/vagina. Correlate clinically for infection versus potential fistula. 5. Small low-density area in the right hepatic lobe adjacent to the gallbladder. Most likely focal fatty infiltration but consider further characterization by liver ultrasound routine basis. Dr. Lamb was consulted due to the possibility of appendicitis. However on exam her symptoms were dramatically improved. She had only mild diffuse abdominal tenderness without guarding. As her exam was not consistent with appendicitis it was decided to admit for observation. In the ER she had a fever and has had episodes of confusion. During my examination she is mostly appropriate although she is confused with timing of events. She and her given a report of events. He does not think she is significantly confused. She has had no recent change in diet, medication, or activity. She had a similar episode a few weeks ago that was not as painful as this but in the same location. It was thought to be abdominal muscle pain at that time. She has severe COPD with chronic respiratory failure and uses oxygen at 2lpm during the day and 2.5-3lpm through a trilogy at night. She currently feels much better, although still reports some minor abdominal pain throughout. No nausea currently. She did vomit after drinking the contrast in the ER. Medical History (Last Reviewed 09/06/19 @ 15:46 by Elva Call RN) Witnessed apneic spells (Chronic) Onset Date: ~10/15/15 Respiratory failure with hypoxia (Chronic) Onset Date: ~02/05/16 Psoriasis (Chronic) Onset Date: ~09/20/13 Oxygen dependent (Chronic) Onset Date: ~10/15/15 Obstructive sleep apnea (Chronic) Onset Date: ~11/06/15 Left leg pain (Chronic) Onset Date: ~06/22/15 Fracture, vertebral, lumbar closed (Chronic) Onset Date: ~04/20/14 Dizziness (Chronic) Onset Date: Unknown Constipation (Chronic) Onset Date: ~04/20/14 Benign positional vertigo (Chronic) Onset Date: ~04/13/14 Back pain (Chronic) Onset Date: ~06/22/15 Back muscle spasm (Chronic) Onset Date: ~06/22/15 Anxiety (Chronic) Onset Date: Unknown Allergic rhinitis (Chronic) Onset Date: ~09/20/13 History of hypothyroidism (Chronic) Hypertension (Chronic) History of depression (Chronic) Hx of pulmonary hypertension (Chronic) History of COPD (Chronic) Asthma, moderate persistent Surgical History: Surgical History (Last Reviewed 09/06/19 @ 15:46 by Elva Call RN) H/O tooth extraction Onset Date: Unknown full mouth History of tonsillectomy Onset Date: Unknown Family History: Family History (Last Reviewed 09/06/19 @ 15:46 by Elva Call RN) Mother , age 91-Alzheimers Cancer colon ca-dx age 30-40's Alzheimers disease Father , age 86-cancer Cancer prostate ca-dx age 70's, colon ca at 75. Brother Alive and well Grandfather Cancer maternal-colon ca-unknown age of dx Aunt Cancer maternal aunt-colon ca-dx age 40's Social History: (Last Reviewed 09/06/19 @ 15:46 by Elva Call RN) Social History: Marital status: household members: spouse number of children: 3 current occupational status: retired Service: No Tobacco: Smoking Status: Former smoker Alcohol: alcohol intake: current Alcohol type: wine alcohol intake frequency: a few times a week Substance Use: substance use type: does not use Dietary Habits: caffeine: Yes Personal Safety: victim of physical abuse: No victim of emotional abuse: No Review Of Systems (GEN) - Review of Systems Generalized/Overall Review: Present: Fever - in the ER. Absent: Weakness, Chills EENTM: Present: No Symptoms Reported Respiratory: Absent: Cough, Shortness of Breath Cardiac: Absent: Chest Pain, Edema, Palpitations Abdominal: Present: Nausea, Vomiting, Abdominal Pain. Absent: Hematemesis, Constipation, Diarrhea, Melena, Bright blood from rectum Genitourinary: Present: No Symptoms Reported Musculoskeletal: Present: No Symptoms Reported Neurological: Present: No Symptoms Reported Skin: Present: No Symptoms Reported Endocrine: Present: No Symptoms Reported Immunizations: IMMUNIZATION HX Immunizations Up to Date Yes History of Influenza Vaccine Yes Hx Pneumococcal Vaccination Yes Allergies/Adverse Reactions: Allergies Allergy/AdvReac Type Severity Reaction Status Date / Time shellfish derived Allergy Intermediate eyes Verified 06/16/19 13:12 swelling, peeled Home Medications: HOME MEDICATIONS Umeclidinium [place] [Incruse Ellipta] 62.5 mcg INHALATION DAILY 11/10/16 [Last Taken Unknown] Naproxen Sodium [Aleve] 220 mg PO BID PRN 03/20/18 [Last Taken Unknown] Fluticasone/Vilanterol [Breo Ellipta 200-25 Mcg INH] 1 ea INHALATION DAILY 08/21/18 [Last Taken Unknown] guaifenesin 1,200 mg tablet, extended release 12 hr 1,200 mg PO Q12H PRN 01/07/19 [Last Taken Unknown] metoprolol succinate 50 mg tablet,extended release 24 hr 25 mg PO HS #30 tab 01/24/19 [Last Taken Unknown] tramadol 50 mg tablet 50 mg PO Q6H PRN #120 tab 02/27/19 [Last Taken Unknown] Atorvastatin Calcium [Lipitor] 20 mg PO DAILY 09/06/19 [Last Taken Unknown] Diazepam 5 mg PO TID PRN 09/06/19 [Last Taken Unknown] Diazepam 10 mg PO HS 09/06/19 [Last Taken Unknown] Levothyroxine Sodium [Synthroid] 88 mcg PO DAILY 09/06/19 [Last Taken Unknown] Montelukast Sodium [Singulair] 10 mg PO 1700 09/06/19 [Last Taken Unknown] QUEtiapine FUMARATE [Seroquel] 25 mg PO HS 09/06/19 [Last Taken Unknown] Sertraline HCl [Zoloft] 100 mg PO BID 09/06/19 [Last Taken Unknown] Spironolactone 25 mg PO BID 09/06/19 [Last Taken Unknown] Exam - Exam Vital Signs: Vital Signs - Last Taken Temp 36.4 C 09/06/19 15:21 Pulse 82 09/06/19 15:21 Resp 20 09/06/19 15:21 BP 107/48 09/06/19 15:21 Pulse Ox 93 09/06/19 16:02 Constitutional: Present: Alert, Oriented x3, Cooperative ENT Exam: Present: hearing grossly normal Eye Exam: bilateral eye: normal inspection Respiratory: Present: lungs clear, no respiratory distress, decreased breath sounds - bilateral bases Cardiovascular/Chest: Present: regular rate, rhythm, no murmur Abdomen: Present: soft, tender - mild tenderness in RUQ and RLQ, hypoactive Skin Exam: Present: normal color, warm/dry, no cyanosis Appearance: Present: impaired remote memory Eye contact: Present: cooperative, good eye contact, normal speech Thoughts: Present: normal thought pattern, no apparent hallucination Diagnostic Studies: Abnormal Lab Results 09/06/19 09/06/19 09/06/19 Range/Units 10:12 10:12 10:12 MCH 31.7 H (27-31) pg RDW 14.1 H (11.5-14.0) % Neutrophils % 85.3 H (42-75.0) % Lymphocytes % 9.1 L (20-51) % Neutrophils # 7.8 H (1.3-6.0) K/mm3 Lymphocytes # 0.83 L (1.5-3.5) k/mm3 ESR 32 H (0-15) mm/hr Carbon Dioxide 32.8 H (24-32.6) mmol/L Total Protein 8.7 H (6.2-8.2) gm/dL Lipase 66 L (73-393) U/L Urine Nitrate (NEGATIVE) Urine Bacteria (NONE) 09/06/19 Range/Units 10:44 MCH (27-31) pg RDW (11.5-14.0) % Neutrophils % (42-75.0) % Lymphocytes % (20-51) % Neutrophils # (1.3-6.0) K/mm3 Lymphocytes # (1.5-3.5) k/mm3 ESR (0-15) mm/hr Carbon Dioxide (24-32.6) mmol/L Total Protein (6.2-8.2) gm/dL Lipase (73-393) U/L Urine Nitrate Positive H (NEGATIVE) Urine Bacteria 1+ H (NONE) Laboratory Results WBC 9.1 K/mm3 (4.0-10.5) 09/06/19 10:12 RBC 4.48 M/mm3 (4.2-5.4) 09/06/19 10:12 Hgb 14.2 gm/dL (12.5-16.0) 09/06/19 10:12 Hct 43.8 % (37.0-47.0) 09/06/19 10:12 MCV 97.8 fl (78-100) 09/06/19 10:12 MCH 31.7 pg (27-31) H 09/06/19 10:12 MCHC 32.4 g/dl (32-36) 09/06/19 10:12 RDW 14.1 % (11.5-14.0) H 09/06/19 10:12 Plt Count 157 K/mm3 (150-450) 09/06/19 10:12 MPV 9.8 fl (8-12.5) 09/06/19 10:12 Immature Gran % (Auto) 0.30 % (0.001-0.429) 09/06/19 10:12 Immature Gran # (Auto) 0.03 K/mm3 (0.000-0.0310) 09/06/19 10:12 Neutrophils % 85.3 % (42-75.0) H 09/06/19 10:12 Lymphocytes % 9.1 % (20-51) L 09/06/19 10:12 Monocytes % 2.8 % (0.0-9) 09/06/19 10:12 Eosinophils % 2.4 % (0.0-3.0) 09/06/19 10:12 Basophils % 0.1 % (0.0-1.0) 09/06/19 10:12 Nucleated RBC % 0.0 k/mm3 (0-1) 09/06/19 10:12 Neutrophils # 7.8 K/mm3 (1.3-6.0) H 09/06/19 10:12 Lymphocytes # 0.83 k/mm3 (1.5-3.5) L 09/06/19 10:12 Monocytes # 0.3 k/mm3 (0.0-1.0) 09/06/19 10:12 Eosinophils # 0.2 k/mm3 (0.0-0.7) 09/06/19 10:12 Absolute Basophils 0.0 k/mm3 (0.0-0.1) 09/06/19 10:12 ESR 32 mm/hr (0-15) H 09/06/19 10:12 Sodium 138 mmol/L (132-142) 09/06/19 10:12 Plasma Sodium 138 mmol/L (130-142) 09/06/19 10:12 Potassium 4.1 mmol/L (3.4-4.6) 09/06/19 10:12 Chloride 99 mmol/L (97-106) 09/06/19 10:12 Carbon Dioxide 32.8 mmol/L (24-32.6) H 09/06/19 10:12 Anion Gap 10.3 mmol/L (6.8-13.8) 09/06/19 10:12 BUN 13 mg/dL (3-23) 09/06/19 10:12 Creatinine 0.86 mg/dL (0.4-1.4) 09/06/19 10:12 Est GFR (Non-Af Amer) 69 mL/min (60-130) 09/06/19 10:12 BUN/Creatinine Ratio 15.1 (9.0-21.6) 09/06/19 10:12 Random Glucose 109 mg/dL (70-110) 09/06/19 10:12 Lactic Acid, Venous 1.8 mmol/L (0.4-2.0) 09/06/19 10:12 Calcium 9.1 mg/dL (7.9-10.9) 09/06/19 10:12 Calcium Adj for Albumin 8.5 mg/dL (8.4-10.2) 09/06/19 10:12 Total Bilirubin 0.5 mg/dL (0.0-1.1) 09/06/19 10:12 AST 28 U/L (0-48) 09/06/19 10:12 ALT 24 U/L (19-67) 09/06/19 10:12 Alkaline Phosphatase 140 U/L (50-170) 09/06/19 10:12 C-Reactive Prot, Quant 0.9 mg/dL (0.0-0.9) 09/06/19 10:12 Total Protein 8.7 gm/dL (6.2-8.2) H 09/06/19 10:12 Albumin 4.4 gm/dl (3.4-5.0) 09/06/19 10:12 Amylase 30 U/L (25-115) 09/06/19 10:12 Lipase 66 U/L (73-393) L 09/06/19 10:12 Urine Color Yellow 09/06/19 10:44 Urine Appearance Clear (CLEAR) 09/06/19 10:44 Urine pH 6.5 pH (5.0-7.0) 09/06/19 10:44 Ur Specific [place] 1.015 SP.GR. (1.005-1.010) 09/06/19 10:44 Urine Protein Negative mg/dL (NEGATIVE) 09/06/19 10:44 Urine Glucose (UA) Negative mg/dL (NEGATIVE) 09/06/19 10:44 Urine Ketones Negative mg/dL (NEGATIVE) 09/06/19 10:44 Urine Blood Negative /ul (NEGATIVE) 09/06/19 10:44 Urine Nitrate Positive (NEGATIVE) H 09/06/19 10:44 Urine Bilirubin Negative mg/dl (NEGATIVE) 09/06/19 10:44 Urine Urobilinogen Normal EU/dl (NORMAL) 09/06/19 10:44 Ur Leukocyte Esterase Negative /ul (NEGATIVE) 09/06/19 10:44 Urine RBC None seen /hpf (0-5) 09/06/19 10:44 Urine WBC None seen /hpf (0-5) 09/06/19 10:44 Ur Epithelial Cells None seen /hpf (0-5) 09/06/19 10:44 Urine Bacteria 1+ (NONE) H 09/06/19 10:44 Urine Culture Comments Culture to follow 09/06/19 10:44 Assessment/Plan - Procedures Results: Iqra is a 69 yo female with abdominal pain of unknown etiology, but initial concern was for appendicitis. Due to this she will be admitted to observation with serial abdominal exams. Surgery was consulted and will perform the serial exams. Clinically she does not appear to have appendicitis but the CT scan did show some inflammation around the appendix. She has no leukocytosis, lactic acid is normal, and CRP is normal. All of these suggest that it is not appendicitis, along with her unremarkable exam. Will repeat these inflammatory markers in the morning. Differential includes UTI vs colitis vs appendicitis vs ovarian cyst inflammation. She was given a dose of rocephin in the ER to cover UTI. Will monitor urine culture. If she continues to do well, will plan to discharge to home tomorrow. - Assessment/Plan (1) Abdominal pain Problem: Acute Qualifiers: Abdominal location: right lower quadrant Qualified Code(s): R10.31 - Right lower quadrant pain (2) Fever and chills Problem: Acute (3) Respiratory failure with hypoxia Problem: Chronic Qualifiers: Chronicity: chronic Qualified Code(s): J96.11 - Chronic respiratory failure with hypoxia (4) COPD (chronic obstructive pulmonary disease) Problem: Acute Qualifiers:
--- NOTE | 2019-09-06 17:54 | CONS ---
HPI - General Date of Service: 09/06/19 Narrative: She was initially seen in the emergency room earlier today, and reexamined at this time after admission Source: patient, family, RN/MD, RN notes reviewed, EMS notes reviewed, old records Exam Limitations: clinical condition - History of Present Illness Initial Comments: She apparently woke at about 5 AM with severe abdominal pain. EMS was called. She received fentanyl IV en route to the hospital. She complained of pain in the right lower quadrant and was tender. Abdominal x- ray showed large gastric bubble and some increased gas in the right side of the abdomen--consider colitis. CT scan of the abdomen and pelvis was obtained which mentioned possible small bowel wall thickening, finding near the gallbladder, a right pelvic cystic structure, and possible early appendicitis. She had lab work done which revealed a normal white blood cell count, CRP and lactic acid. ESR was elevated. I was asked to see the patient in the emergency room. Exam at that time showed her to be slightly confused with a very distended tympanitic abdomen. She complained of mild variable discomfort discomfort, more so on the right side. She did not guard and her reaction to palpation was equal in several places across the lower abdomen. She was admitted and I have returned for serial exam Timing/Duration: other - The pain began acutely this morning and was very severe Severity: mild - Currently she states the pain is markedly improved "more like a sore muscle" "not near what it was" Modifying Factors - (Worsens): Reports: other - Is worse if she sits up straight and bends over Modifying Factors - (Improves): Reports: other - It is better if she just lays still Associated Symptoms: other - She had an increased temperature after she arrived in the emergency room however has returned to normal (she has had IV Tylenol) Allergies/Adverse Reactions: Allergies shellfish derived Allergy (Intermediate, Verified 06/16/19 13:12) eyes swelling, peeled Home Medications: Home Medications Medication Instructions Recorded Last Taken Umeclidinium [place] [Incruse 62.5 mcg INHALATION DAILY 11/10/16 Unknown Ellipta] Naproxen Sodium [Aleve] 220 mg PO BID PRN 03/20/18 Unknown Fluticasone/Vilanterol [Breo 1 ea INHALATION DAILY 08/21/18 Unknown Ellipta 200-25 Mcg INH] guaifenesin 1,200 mg tablet, 1,200 mg PO Q12H PRN 01/07/19 Unknown extended release 12 hr metoprolol succinate 50 mg 25 mg PO HS #30 tab 01/24/19 Unknown tablet,extended release 24 hr tramadol 50 mg tablet 50 mg PO Q6H PRN #120 tab 02/27/19 Unknown Atorvastatin Calcium [Lipitor] 20 mg PO DAILY 09/06/19 Unknown Diazepam 5 mg PO TID PRN 09/06/19 Unknown Diazepam 10 mg PO HS 09/06/19 Unknown Ipratropium/Albuterol Sulfate 3 ml INHALATION Q4H PRN 09/06/19 Unknown [Iprat-Albut 0.5-3(2.5) mg/3 ml] Levothyroxine Sodium [Synthroid] 88 mcg PO DAILY 09/06/19 Unknown Montelukast Sodium [Singulair] 10 mg PO 1700 09/06/19 Unknown QUEtiapine FUMARATE [Seroquel] 25 mg PO HS 09/06/19 Unknown Sertraline HCl [Zoloft] 100 mg PO BID 09/06/19 Unknown Spironolactone 25 mg PO BID 09/06/19 Unknown Procedures Measurement of Arterial Saturation, Peripheral, Percutaneous Approach (07/25/16) Medications - Medications Current Medications: Current Medications Sodium Chloride (Sodium Chloride 0.9%) 1,000 mls @ 125 mls/hr IV .Q8H ONE Stop: 09/06/19 21:11 Last Infusion: 09/06/19 14:39 Dose: Infused Documented by: Review of Systems - Review of Systems Generalized/Overall Review: Present: Fever - After arrival in the emergency room, now resolved. Absent: Chills EENTM: Present: No Symptoms Reported Respiratory: Present: Cough, Other - She is oxygen dependent. She recently saw Dr. Matos who said she was "stable". The patient states her breathing is about usual Abdominal: Present: Abdominal Pain - She states the pain is markedly improved "now just sore" Genitourinary: Present: Other - She states she does not have burning with urination currently, however she has been treated recently 3 times for UTI Musculoskeletal: Present: No Symptoms Reported - No new musculoskeletal complaints Neurological: Present: Other - She is oriented and does give some appropriate answers however the conversation wanders. She is not talking about her dogs like she was this afternoon Skin: Present: No Symptoms Reported Physical Examination - Exam Narrative: She is alert cooperative she is oriented to person, place, and time of day Vital Signs: Vital Signs - Last Taken Temp 36.4 C 09/06/19 15:21 Pulse 77 09/06/19 17:39 Resp 20 09/06/19 15:21 BP 107/48 09/06/19 15:21 Pulse Ox 93 09/06/19 16:02 O2 Oxygen Delivery Method Nasal Cannula Constitutional: Present: Alert, Cooperative, Obese ENT Exam: Present: normal ENT inspection, other - Very thick short neck. Nasal O2 Eye Exam: bilateral eye: normal inspection Neck: Present: other - Short thick neck Breasts: Present: Exam deferred Respiratory: Present: no accessory muscle use - She appears to be breathing comfortably, she does cough during the exam, other - Rhonchi that clear with cough Cardiovascular/Chest: Present: regular rate, rhythm Abdomen: Present: obese, other - Very protuberant tympanitic abdomen but no shane percussion tenderness. She is soft. She does not guard. She does complain of some "soreness" on palpation in the right mid abdomen, but also to the left of midline as well. She states it hurts worse when the hand is removed, but equal left and right. Again no guarding, and the exam is markedly improved from earlier today /Rectal: Present: Exam deferred Extremity: Present: normal range of motion, no calf tenderness Skin Exam: Present: normal color, warm/dry Neurologic: Present: denture waxer II-XII nml as tested, no motor/sensory deficits, other - Examined on a cot in the emergency room and in recliner, gait not tested Appearance: Present: appropriate appearance, other - She has some confusion but does give good answers to directed questions, must be prompted to stay on track Eye contact: Present: cooperative, good eye contact, normal speech Thoughts: Present: no apparent hallucination, normal mood /affect - Results and Findings: Lab/Microbiology results last 24 hrs: Abnormal/Pending Laboratory Last 24 HRS 09/06/19 09/06/19 09/06/19 10:44 10:12 10:12 MCH RDW Neutrophils % Lymphocytes % Neutrophils # Lymphocytes # ESR 32 H Carbon Dioxide 32.8 H Total Protein 8.7 H Lipase 66 L Urine Nitrate Positive H Urine Bacteria 1+ H 09/06/19 10:12 MCH 31.7 H RDW 14.1 H Neutrophils % 85.3 H Lymphocytes % 9.1 L Neutrophils # 7.8 H Lymphocytes # 0.83 L ESR Carbon Dioxide Total Protein Lipase Urine Nitrate Urine Bacteria Abdominal x-ray images and CT images/reports reviewed - Assessments/Findings (1) Abdominal pain Diagnosis(s): There are number of findings on her CT scan. Although early acute appendicitis is a consideration, she has pulmonary and cardiovascular risk factors for operation. With a normal white blood cell count, CRP, and lactic acid and an improved abdominal exam at this time serial exams would be appropriate. She has nitrates and bacteria on her urinalysis (culture pending) and she has received an antibiotic for UTI. This could contribute to her abdominal symptoms. I will make arrangements to examine the patient again later this evening. I have discussed the case at length with both Dr. Feliciano and Dr. Kumar. Problem: Acute Qualifiers: Abdominal location: right lower quadrant Qualified Code(s): R10.31 - Right lower quadrant pain (2) Fever and chills Diagnosis(s): Her baseline pulmonary function could have been compromised by fentanyl with atelectasis and elevated temperature although this could also be due to a urinary tract infection or appendicitis. She has received Tylenol so her tempe rature curve cannot be followed. Problem: Acute (3) COPD (chronic obstructive pulmonary disease) Diagnosis(s): Currently her respiratory status appears to be at baseline. She will require BiPAP. This puts her at higher risk for operative intervention so again serial exams will be important as appendicitis will not improve. Problem: Acute Qualifiers: COPD type: chronic bronchitis
[2019-09-06] MEDS: FLUTICASONE PROPION/SALMETEROL 14 PUFF DISK.W.DEV IH SCH (20:35)
[2019-09-06] MEDS: SPIRONOLACTONE 25 MG TABLET PO SCH (20:37)
[2019-09-06] MEDS: SERTRALINE HCL 100 MG TABLET PO SCH (20:38)
[2019-09-06] MEDS ORDERED: DIAZEPAM 5 MG TABLET PO SCH (21:00)
[2019-09-06] MEDS ORDERED: ROSUVASTATIN CALCIUM 10 MG TABLET PO SCH (21:00)
[2019-09-06] MEDS ORDERED: METOPROLOL SUCCINATE 25 MG TABLET.SA PO SCH (21:00)
[2019-09-06] MEDS ORDERED: QUEtiapine FUMARATE 25 MG TABLET PO SCH (21:00)
[2019-09-07] MEDS ORDERED: LEVOTHYROXINE SODIUM 88 MCG TABLET PO SCH (07:00)
[2019-09-07 08:05] LABS: Hematocrit 35.3 % (37.0-47.0); Hemoglobin 11.2 gm/dL (12.5-16.0); Mean Cell Volume 98.6 fl (78-100); Mean Corpuscular Hemoglobin 31.3 pg (27-31); Mean Corpuscular Hgb Conc 31.7 g/dl (32-36); Neutrophil # 6.2 K/mm3 (1.3-6.0); Neutrophil % 78.5 % (42-75.0); Platelet Count 118 K/mm3 (150-450); Red Blood Count 3.58 M/mm3 (4.2-5.4); Red Cell Distribution Width 14.3 % (11.5-14.0); White Blood Count 7.9 K/mm3 (4.0-10.5)
[2019-09-07] MEDS: SPIRONOLACTONE 25 MG TABLET PO SCH (08:53)
[2019-09-07] MEDS: FLUTICASONE PROPION/SALMETEROL 14 PUFF DISK.W.DEV IH SCH (08:53)
[2019-09-07] MEDS: SERTRALINE HCL 100 MG TABLET PO SCH (08:54)
[2019-09-07] MEDS ORDERED: TIOTROPIUM BROMIDE 5 CAP INHALER IH SCH (09:00)
[2019-09-07] MEDS ORDERED: ALBUTEROL SULFATE/IPRATROPIUM 3 ML NEBU IH PRN (10:00)
--- NOTE | 2019-09-07 12:36 | PN ---
Subjective - Date and Time Seen Date: 09/07/19 Time: 11:21 Subjective Narrative: Pt. overall states is better, but still hurts, just no where close to what it was yesterday. was very worried about her and her description would definitely make me worried about acute appendicitis, with the exception of negative CT and normal white count. She did have a high fever to 102, vomiting, anorexia and severe RLQ that was excruciating when she sat up yesterday, but is much better today. Objective Objective Narrative: She does have G- bacteria growing out of urine, 1 gm IV rocephin given yesterday. Her last fever was at 1400 yesterday and has been normothermic since. - Review of Systems Generalized/Overall Review: Reports: Weakness, Chills, Fever, Malaise EENTM: Reports: No Symptoms Reported Respiratory: Reports: Cough, Shortness of Breath, Wheezing, Other - sx's all c/w her underlying COPD and CRF Cardiac: Reports: No Symptoms Reported Abdominal: Reports: Nausea, Abdominal Pain. Denies: Vomiting, Diarrhea Genitourinary Symptoms: Reports: No Symptoms Reported Musculoskeletal Complaints: Reports: No Symptoms Reported Neurological: Reports: No Symptoms Reported, Emotional Problems Skin: Reports: No Symptoms Reported Endocrine: Reports: No Symptoms Reported - Vitals Vitals: Last Vital Signs Temp 36.6 C 09/07/19 08:52 Pulse 81 09/07/19 08:52 Resp 16 09/07/19 08:52 BP 123/50 09/07/19 08:52 Pulse Ox 97 09/07/19 08:52 - Abnormal Lab Findings Abnormal Lab Findings: Abnormal Lab Results 09/06/19 09/07/19 Range/Units 10:12 08:01 RBC 3.58 L (4.2-5.4) M/mm3 Hgb 11.2 L (12.5-16.0) gm/dL Hct 35.3 L (37.0-47.0) % MCH 31.3 H (27-31) pg MCHC 31.7 L (32-36) g/dl RDW 14.3 H (11.5-14.0) % Plt Count 118 L (150-450) K/mm3 Neutrophils % 78.5 H (42-75.0) % Lymphocytes % 15.7 L (20-51) % Neutrophils # 6.2 H (1.3-6.0) K/mm3 Lymphocytes # 1.24 L (1.5-3.5) k/mm3 ESR 32 H (0-15) mm/hr - EKG/Xray Findings EKG: NSR - Exam Constitutional: Present: Alert, Cooperative, Mild distress, Obese ENT Exam: Present: hearing grossly normal Neck: Present: supple Respiratory: Present: no respiratory distress, no accessory muscle use, expiration (prolonged) Cardiovascular/Chest: Present: regular rate, rhythm Abdomen: Present: tender, guarding, distended, hypoactive. Absent: rigidity, rebound tenderness /Rectal: Present: Exam deferred Skin Exam: Present: normal color Neurologic: Present: alert, normal mood/affect Appearance: Present: neat Eye contact: Present: cooperative, good eye contact Thoughts: Present: no apparent hallucination Assessment/Plan - Problems/Diagnosis (1) Abdominal pain Problem: Acute Qualifiers: Abdominal location: right lower quadrant Qualified Code(s): R10.31 - Right lower quadrant pain Narrative: given history and symptoms, would have definitely suspected acute appendicitis. she definitely would be a surgical risk with her comorbidities and feel serial exams is appropriate, especially with nor leukocytosis and sx's improving. Appreciate GS consult by Dr. Lamb. She could have some lympadenitis in the area. A UTI could cause some pain, but not typically the extreme pain she had. she has been Afebrile since dose of rocephin given, so this could explain her fever. (2) UTI (urinary tract infection) with pyuria Problem: Acute Narrative: rocephin given in ER, will repeat dose today, awaiting UCx results. (3) Fever and chills Problem: Acute Narrative: UTI most likely, though early appy also a possibility. AF since yesterday. (4) COPD (chronic obstructive pulmonary disease) Problem: Acute Qualifiers: COPD type: chronic bronchitis Narrative: stable, no med changes, but does pose a surgical risk if surgery needed. (5) Obstructive sleep apnea Problem: Chronic (6) Respiratory failure with hypoxia Problem: Chronic Qualifiers: Chronicity: chronic Qualified Code(s): J96.11 - Chronic respiratory failure with hypoxia Narrative: Stable, continue O2. (7) Discharge planning issues Problem: Acute Narrative: If she continues to improve, expect to discharge home this pm on oral abx for her UTI. Given fever, the abx should have good renal penetration to cover for early Pyelonephritis and possibly cover for enteric infection (Augmentin or cipro would be appropriate) Await Dr. Lamb's re-evaluation to get his input and recommendations.
--- NOTE | 2019-09-07 15:37 | DS ---
(1) Abdominal pain Problem: Acute Qualifiers: Abdominal location: right lower quadrant Qualified Code(s): R10.31 - Right lower quadrant pain (2) UTI (urinary tract infection) with pyuria Problem: Acute (3) Fever and chills Problem: Acute (4) COPD (chronic obstructive pulmonary disease) Problem: Acute Qualifiers: COPD type: chronic bronchitis (5) Obstructive sleep apnea Problem: Chronic (6) Respiratory failure with hypoxia Problem: Chronic Qualifiers: Chronicity: chronic Qualified Code(s): J96.11 - Chronic respiratory failure with hypoxia (7) Discharge planning issues Problem: Acute Date of Discharge:: 09/07/19 Description of Stay: Pt. admitted for abdominal pain with concern for possible appendicitis, but no elevated white count or CRP and with improvement of her sx's during her hospitalization. Review of case with Dr. Lamb, we both felt her sx's are due more to her tremendous gaseous distension caused from her lung disease and her AVAPS use at home. We talked about doing NGT to decompress her or suppository to see if this would relieve some gas, but feel getting her mobile might rectify this situation without further intervention. She had an initial fever, but only once. This could have been atelectasis from the hypovenilation secondary to fentanyl given by EMS or possibly UTI, but not pyelonephritis given no leukocytosis. she did have 2 doses of rocephin to cover her UTI and will be put on abx that has good renal penetration without having adverse issues on her. will do cipro as the bactrim came up with a severe warning. Her mental status improved while here, but she still has some memory issues and her states has appt. to see neurology outpt. she has significant disease, but good support at home, so I feel at this point she is safe to go home on her previous home regimen, plus the oral antibiotic to start this pm. Procedures Performed: none Results and Findings: Pending Mircobiology Results 09/06/19 13:28 Blood Blood Culture - Preliminary NO GROWTH 24 HOURS 09/06/19 13:20 Blood Blood Culture - Preliminary NO GROWTH 24 HOURS 09/06/19 Unknown Urine,Catheterized Urine Culture - Preliminary Gram Negative Bacilli Lab Pending Results 09/06/19 10:12: WBC 9.1, RBC 4.48, Hgb 14.2, Hct 43.8, MCV 97.8, MCH 31.7 H, MCHC 32.4, RDW 14.1 H, Plt Count 157, MPV 9.8, Immature Gran % (Auto) 0.30, Immature Gran # (Auto) 0.03, Neutrophils % 85.3 H, Lymphocytes % 9.1 L, Monocytes % 2.8, Eosinophils % 2.4, Basophils % 0.1, Nucleated RBC % 0.0, Ne utrophils # 7.8 H, Lymphocytes # 0.83 L, Monocytes # 0.3, Eosinophils # 0.2, Absolute Basophils 0.0 09/06/19 10:12: Sodium 138, Plasma Sodium 138, Potassium 4.1, Chloride 99, Carbon Dioxide 32.8 H, Anion Gap 10.3, BUN 13, Creatinine 0.86, Est GFR (Non-Af Amer) 69, BUN/Creatinine Ratio 15.1, Random Glucose 109, Calcium 9.1, Calcium Adj for Albumin 8.5, Total Bilirubin 0.5, AST 28, ALT 24, Alkaline Phosphatase 140, Total Protein 8.7 H, Albumin 4.4, Amylase 30, Lipase 66 L 09/06/19 10:12: ESR 32 H 09/06/19 10:12: C-Reactive Prot, Quant 0.9 09/06/19 10:12: Lactic Acid, Venous 1.8 09/06/19 10:44: Urine Color Yellow, Urine Appearance Clear, Urine pH 6.5, Ur Specific [place] 1.015, Urine Protein Negative, Urine Glucose (UA) Negative, Urine Ketones Negative, Urine Blood Negative, Urine Nitrate Positive H, Urine Bilirubin Negative, Urine Urobilinogen Normal, Ur Leukocyte Esterase Negative, Urine RBC None seen, Urine WBC None seen, Ur Epithelial Cells None seen, Urine Bacteria 1+ H, Urine Culture Comments Culture to follow 09/07/19 08:01: WBC 7.9, RBC 3.58 L, Hgb 11.2 L, Hct 35.3 L, MCV 98.6, MCH 31.3 H, MCHC 31.7 L, RDW 14.3 H, Plt Count 118 L, MPV 10.0, Immature Gran % (Auto) 0.30, Immature Gran # (Auto) 0.02, Neutrophils % 78.5 H, Lymphocytes % 15.7 L, Monocytes % 4.4, Eosinophils % 0.8, Basophils % 0.3, Nucleated RBC % 0.0, Neutrophils # 6.2 H, Lymphocytes # 1.24 L, Monocytes # 0.4, Eosinophils # 0.1, Absolute Basophils 0.0 Discharge Location: Home Disposition: Home self-care Condition: Fair Discharge Activity: Activity as tolerated Discharge Diet: Resume usual diet Referrals: Freddie Torres MD [Primary Care Provider] - Prescriptions (Any new or edited meds): Ciprofloxacin HCl [Cipro] 500 mg PO BID #5 tab Transmission Status: Pending to [facility] - [place], [place] Complete Home Medications List: Complete Home Medication List: Umeclidinium [place] [Incruse Ellipta] 62.5 mcg INHALATION DAILY 11/10/16 Naproxen Sodium [Aleve] 220 mg PO BID PRN 03/20/18 Fluticasone/Vilanterol [Breo Ellipta 200-25 Mcg INH] 1 ea INHALATION DAILY 08/21/18 guaifenesin 1,200 mg tablet, extended release 12 hr 1,200 mg PO Q12H PRN 01/07/19 metoprolol succinate 50 mg tablet,extended release 24 hr 25 mg PO HS #30 tab 01/24/19 tramadol 50 mg tablet 50 mg PO Q6H PRN #120 tab 02/27/19 Atorvastatin Calcium [Lipitor] 20 mg PO DAILY 09/06/19 Diazepam 5 mg PO TID PRN 09/06/19 Diazepam 10 mg PO HS 09/06/19 Ipratropium/Albuterol Sulfate [Iprat-Albut 0.5-3(2.5) mg/3 ml] 3 ml INHALATION Q4H PRN 09/06/19 Levothyroxine Sodium [Synthroid] 88 mcg PO DAILY 09/06/19 Montelukast Sodium [Singulair] 10 mg PO 1700 09/06/19 QUEtiapine FUMARATE [Seroquel] 25 mg PO HS 09/06/19 Sertraline HCl [Zoloft] 100 mg PO BID 09/06/19 Spironolactone 25 mg PO BID 09/06/19 Ciprofloxacin HCl [Cipro] 500 mg PO BID #5 tab 09/07/19
[2019-09-07 16:31] VITALS: BP 127/62
[2019-09-07] MEDS ORDERED: MONTELUKAST SODIUM 10 MG TABLET PO SCH (17:00)
--- NOTE | 2019-09-07 18:23 | PN ---
Dictated Progress Note - Date and Time Seen: Date: 09/07/19 Time: 16:00 - Progress Note Narrative: Vital Signs - Last Taken Temp 37.7 C 09/07/19 16:15 Pulse 79 09/07/19 15:16 Resp 24 H 09/07/19 16:15 BP 127/62 09/07/19 16:15 Pulse Ox 92 L 09/07/19 16:15 Abnormal/Pending Laboratory Last 24 HRS 09/07/19 08:01 RBC 3.58 L Hgb 11.2 L Hct 35.3 L MCH 31.3 H MCHC 31.7 L RDW 14.3 H Plt Count 118 L Neutrophils % 78.5 H Lymphocytes % 15.7 L Neutrophils # 6.2 H Lymphocytes # 1.24 L Culture 09/06/19 13:28 Blood Culture - Preliminary Blood NO GROWTH 24 HOURS 09/06/19 13:20 Blood Culture - Preliminary Blood NO GROWTH 24 HOURS 09/06/19 Unknown Urine Culture - Preliminary Urine,Catheterized Gram Negative Bacilli I have examined the patient at 10 PM last night and today at 7 AM, noon, and 4 PM. Her vital signs have remained normal. Her white blood cell count remains normal. Her mental status has cleared a little however she still wanders in conversation. Her abdomen is still distended and very very tympanitic, however there is no percussion tenderness and she is soft. She has variable direct tenderness in numerous places on the abdomen which varies from exam to exam. There is no guarding and with distraction there is possible deep palpation in all quadrants without reaction. IMPRESSION: The cause of her abdominal pain is unclear. The only positive finding is a urinary tract infection. She does not have any peritoneal signs on exam, she has improved since my first exam in the emergency room, and the findings did not suggest acute appendicitis. She does have a very enlarged gastric air bubble probably from a combination of air swallowing and BiPAP and the gaseous distention may be the cause of her discomfort. RECOMMEND: I discussed the case both with Dr. Kumar and Dr. Torres. Would not recommend surgical intervention at this time, agree with discharge when Dr. Torres feels appropriate with antibiotics to cover the urinary tract infection. Reviewed and electronically signed
[2019-09-07] MEDS ORDERED: FLUTICASONE PROPION/SALMETEROL 14 PUFF DISK.W.DEV IH SCH (21:00)
== END 2019-09-07 17:05 | disposition home or self-care (01) ==
LOC: MS 09:43 → ER 09:43 → MS 15:00
PROVIDERS: ADMIT Family Medicine; ATTEND Family Medicine
CPT/HCPCS: 36415; 74019; 74020; 74177; 80053; 81001; 82150; 83605; 83690; 85025; 85652; 86140; 87040; 87077; 87086; 87186; 93005; 94660; 96365; 96366; 96367; 99285; G0378; J0131; J2405; Q9963; Q9967

== ENCOUNTER 2019-09-29 09:17 | Observation (INO) ==
[2019-09-29] MEDS ORDERED: METHYLPREDNISOLONE SOD SUCC/PF 125 MG/2 ML VIAL ONE (09:33)
[2019-09-29] MEDS ORDERED: METHYLPREDNISOLONE SOD SUCC/PF 125 MG/2 ML VIAL IV ONE (09:34)
--- NOTE | 2019-09-29 09:48 | ERNOTE ---
Dyspnea - General Presenting Symptoms: shortness of breath Time Seen by Provider: 09/29/19 09:31 Source: patient, family, EMS Exam Limitations: no limitations - Immun/Allergies/Home Medications Immunizations: IMMUNIZATION HX Immunizations Up to Date Yes History of Influenza Vaccine Yes Hx Pneumococcal Vaccination Yes Allergies/Adverse Reactions: Allergies shellfish derived Allergy (Intermediate, Verified 09/16/19 10:25) eyes swelling, peeled Home Medications: HOME MEDICATIONS Umeclidinium [place] [Incruse Ellipta] 62.5 mcg INHALATION DAILY 11/10/16 [Last Taken Unknown] Naproxen Sodium [Aleve] 220 mg PO BID PRN 03/20/18 [Last Taken Unknown] Fluticasone/Vilanterol [Breo Ellipta 200-25 Mcg INH] 1 ea INHALATION DAILY 08/21/18 [Last Taken Unknown] guaifenesin 1,200 mg tablet, extended release 12 hr 1,200 mg PO Q12H PRN 01/07/19 [Last Taken Unknown] metoprolol succinate 50 mg tablet,extended release 24 hr 25 mg PO HS #30 tab 01/24/19 [Last Taken Unknown] tramadol 50 mg tablet 50 mg PO Q6H PRN #120 tab 02/27/19 [Last Taken Unknown] Atorvastatin Calcium [Lipitor] 20 mg PO DAILY 09/06/19 [Last Taken Unknown] Diazepam 5 mg PO TID PRN 09/06/19 [Last Taken Unknown] Diazepam 10 mg PO HS 09/06/19 [Last Taken Unknown] Ipratropium/Albuterol Sulfate [Iprat-Albut 0.5-3(2.5) mg/3 ml] 3 ml INHALATION Q4H PRN 09/06/19 [Last Taken Unknown] Levothyroxine Sodium [Synthroid] 88 mcg PO DAILY 09/06/19 [Last Taken Unknown] Montelukast Sodium [Singulair] 10 mg PO 1700 09/06/19 [Last Taken Unknown] QUEtiapine FUMARATE [Seroquel] 25 mg PO HS 09/06/19 [Last Taken Unknown] Sertraline HCl [Zoloft] 100 mg PO BID 09/06/19 [Last Taken Unknown] Spironolactone 25 mg PO BID 09/06/19 [Last Taken Unknown] - History of Present Illness Narrative: Patient started to develop relatively severe shortness of breath this morning and was unable to reverse that with her home DuoNeb or her CPAP-like machine, the trilogy Severity: severe Treatment WET SANDER: by patient, paramedics Initiating event: Reports: unknown Frequency of episodes: Reports: occassional episodes Modifying Factors - (Improves): Reports: albuterol - Normally Modifying Factors (Worsens): Reports: nothing Associated Symptoms-Dyspnea: Reports: cough, wheezing Prior Treatment: Reports: recently seen, treated by physician Review of Systems - Review of Systems Constitutional: Present: See HPI EYE: Present: no symptoms reported ENT: Present: no symptoms reported Respiratory: Present: See HPI Cardiology: Present: no symptoms reported Gastrointestinal/Abdominal: Present: no symptoms reported Genitourinary: Present: no symptoms reported Musculoskeletal: Present: no symptoms reported Skin: Present: no symptoms reported Neurological: Present: no symptoms reported Endocrine: Present: no symptoms reported Hematologic/Lymphatic: Present: no symptoms reported Psych: Present: no symptoms reported Medical History (Last Reviewed 09/29/19 @ 09:33 by Елена Blackburn RN) Witnessed apneic spells (Chronic) Onset Date: ~10/15/15 Respiratory failure with hypoxia (Chronic) Onset Date: ~02/05/16 Psoriasis (Chronic) Onset Date: ~09/20/13 Oxygen dependent (Chronic) Onset Date: ~10/15/15 Obstructive sleep apnea (Chronic) Onset Date: ~11/06/15 Left leg pain (Chronic) Onset Date: ~06/22/15 Fracture, vertebral, lumbar closed (Chronic) Onset Date: ~04/20/14 Dizziness (Chronic) Onset Date: Unknown Constipation (Chronic) Onset Date: ~04/20/14 Benign positional vertigo (Chronic) Onset Date: ~04/13/14 Back pain (Chronic) Onset Date: ~06/22/15 Back muscle spasm (Chronic) Onset Date: ~06/22/15 Anxiety (Chronic) Onset Date: Unknown Allergic rhinitis (Chronic) Onset Date: ~09/20/13 History of hypothyroidism (Chronic) Hypertension (Chronic) History of depression (Chronic) Hx of pulmonary hypertension (Chronic) History of COPD (Chronic) Asthma, moderate persistent Surgical History: Surgical History (Last Reviewed 09/29/19 @ 09:33 by Елена Blackburn RN) H/O tooth extraction Onset Date: Unknown full mouth History of tonsillectomy Onset Date: Unknown Family History: Family History (Last Reviewed 09/29/19 @ 09:33 by Елена Blackburn RN) Mother , age 91-Alzheimers Cancer colon ca-dx age 30-40's Alzheimers disease Father , age 86-cancer Cancer prostate ca-dx age 70's, colon ca at 75. Brother Alive and well Grandfather Cancer maternal-colon ca-unknown age of dx Aunt Cancer maternal aunt-colon ca-dx age 40's Social History: (Last Reviewed 09/29/19 @ 09:33 by Елена Blackburn RN) Social History: Marital status: household members: spouse number of children: 3 current occupational status: retired Service: No Tobacco: Smoking Status: Former smoker Alcohol: alcohol intake: current Alcohol type: wine alcohol intake frequency: a few times a week Substance Use: substance use type: does not use Dietary Habits: caffeine: Yes Personal Safety: victim of physical abuse: No victim of emotional abuse: No Physical Exam - Physical Exam General Appearance: Present: wd/wn, alert, severe distress Head Exam: Present: normal inspection, no evidence of injury Eye Exam: Normal inspection: bilateral, PERRL: bilateral Ears, Nose, Throat: Present: normal ENT inspection, H, normal pharynx Neck: Present: normal inspection, nontender Respiratory: Present: chest nontender, respiratory distress, accessory muscle use, crackles, wheezing Cardiovascular/Chest: Present: no murmur, normal peripheral pulses, tachycardia Gastrointestinal/Abdominal: Present: normal bowel sounds, nontender, nondistended, soft, no organomegaly Rectal Exam: Present: deferred Back Exam: Present: normal inspection, normal range of motion Extremity Exam: Present: normal inspection, non-tender, no edema, normal range of motion Neurological Exam: Present: alert, oriented, normal mood/affect Skin Exam: Present: normal color, warm/dry Lymphatic Exam: Present: no adenopathy Progress - Results and Orders Patient's Lab Results:: I have reviewed the patient's lab results. - Vital Signs Patient's Vital Signs:: I have reviewed the patient's vital signs. Vital Signs: Vital Signs 09/29/19 09:26 Temperature 37.0 C Pulse Rate 110 H Respiratory Rate 30 H Blood Pressure 161/82 H O2 Sat by Pulse Oximetry 89 L - EKG EKG #1 EKG: other - Sinus tachycardia - X-Ray X-Ray #1 X-Ray: chest - Progress/Reassessment Chief Complaint: Dyspnea Plan - Plan Plan: Patient be admitted to a monitored bed and for aggressive pulmonary toilet. Departure Clinical Impression: COPD (chronic obstructive pulmonary disease) Qualifiers: COPD type: COPD with acute exacerbation Qualified Code(s): J44.1 - Chronic obstructive pulmonary disease with (acute) exacerbation - Departure Disposition: Still a patient Condition: Fair Referrals: Belle Allen MD [Primary Care Provider] - Critical Care Note - Critical Care Note Total Time (mins): 35 Comments: Patient was placed on BiPAP while in the emergency department. She was also given 125 mg of Solu-Medrol and will need to be admitted at least overnight to get a better handle on her COPD exacerbation.
[2019-09-29 10:02] LABS: Hemoglobin 13.9 gm/dL (12.5-16.0); Mean Cell Volume 95.8 fl (78-100); Mean Corpuscular Hgb Conc 32.3 g/dl (32-36); Neutrophil % 84.8 % (42-75.0); Platelet Count 139 K/mm3 (150-450); Red Blood Count 4.49 M/mm3 (4.2-5.4); Red Cell Distribution Width 13.3 % (11.5-14.0); White Blood Count 7.1 K/mm3 (4.0-10.5)
[2019-09-29 10:18] LABS: Albumin * 4.1 gm/dl (3.4-5.0); Anion Gap 11.8 mmol/L (6.8-13.8); BUN/Creatinine Ratio 16.2 (9.0-21.6); Bilirubin, Total 0.4 mg/dL (0.0-1.1); Ca. Corrected For Albumin 7.8 mg/dL (8.4-10.2); Calcium * 8.2 mg/dL (7.9-10.9); Carbon Dioxide 33.3 mmol/L (24-32.6); Magnesium 1.8 mg/dL (1.2-2.8); Potassium 4.1 mmol/L (3.4-4.6); Total Protein 7.7 gm/dL (6.2-8.2)
[2019-09-29] MEDS ORDERED: LORazepam 2 MG/ML DISP.SYRIN IV ONE (10:39)
[2019-09-29] MEDS ORDERED: LORazepam 2 MG/ML DISP.SYRIN ONE (10:41)
[2019-09-29] MEDS ORDERED: cefTRIAXone SODIUM 1,000 MG/100 ML BAG IV ONE (10:49)
[2019-09-29] MEDS ORDERED: AZITHROMYCIN 250 MG TABLET PO ONE (10:50)
--- NOTE | 2019-09-29 11:59 | HP ---
Chief Complaint - Chief Complaint Date of Service: 09/29/19 Time of Service: 11:02 Chief Complaint: Shortness of breath x1 day History of Present Illness: 69-year-old female with a past medical history of COPD, oxygen dependent on 2 L of oxygen at all times and on trilogy at night, asthma, anxiety, constipation, depression, hypothyroidism, pulmonary hypertension, hypertension, obstructive sleep apnea, psoriasis presents with complaints of shortness of breath x1 day. Her states that she woke up this morning was complaining of shortness of breath. He checked her oxygen saturation and she was in the 70s. He turned up her oxygen level and her oxygenation only improved to the mid 80s. He states she was chilly and felt warm associated fever. She denied having increased sputum production or increased purulence of her sputum from baseline. He was not able to check her temperature because the thermometer was not working and he gave her to pills of Tylenol. He then called EMS and had her brought to the emergency department. In the ER she was found to be mildly hypoxic with oxygen saturation in the high 80s. She was started on BiPAP and given a dose of Solu- Medrol 125 mg. She also received such ceftriaxone and azithromycin. Chest x- ray is shows small bilateral pleural effusions, basilar consolidation felt to represent atelectasis or pneumonia. She was found to not have any leukocytosis, ABG showed PCO2 57.8, PO2 63.7, bicarb 25.2, CO2 27.0, pH 7.26, O2 saturation 88.6. She has been admitted for acute hypoxic, hypercapnic respiratory failure. Medical History (Last Reviewed 09/29/19 @ 12:23 by Tiffanie Parks RN) Witnessed apneic spells (Chronic) Onset Date: ~10/15/15 Respiratory failure with hypoxia (Chronic) Onset Date: ~02/05/16 Psoriasis (Chronic) Onset Date: ~09/20/13 Oxygen dependent (Chronic) Onset Date: ~10/15/15 Obstructive sleep apnea (Chronic) Onset Date: ~11/06/15 Left leg pain (Chronic) Onset Date: ~06/22/15 Fracture, vertebral, lumbar closed (Chronic) Onset Date: ~04/20/14 Dizziness (Chronic) Onset Date: Unknown Constipation (Chronic) Onset Date: ~04/20/14 Benign positional vertigo (Chronic) Onset Date: ~04/13/14 Back pain (Chronic) Onset Date: ~06/22/15 Back muscle spasm (Chronic) Onset Date: ~06/22/15 Anxiety (Chronic) Onset Date: Unknown Allergic rhinitis (Chronic) Onset Date: ~09/20/13 History of hypothyroidism (Chronic) Hypertension (Chronic) History of depression (Chronic) Hx of pulmonary hypertension (Chronic) History of COPD (Chronic) Asthma, moderate persistent Surgical History: Surgical History (Last Reviewed 09/29/19 @ 12:24 by Tiffanie Parks RN) H/O tooth extraction Onset Date: Unknown full mouth History of tonsillectomy Onset Date: Unknown Family History: Family History (Last Reviewed 09/29/19 @ 12:24 by Tiffanie Parks RN) Mother , age 91-Alzheimers Cancer colon ca-dx age 30-40's Alzheimers disease Father , age 86-cancer Cancer prostate ca-dx age 70's, colon ca at 75. Brother Alive and well Grandfather Cancer maternal-colon ca-unknown age of dx Aunt Cancer maternal aunt-colon ca-dx age 40's Social History: (Last Reviewed 09/29/19 @ 12:24 by Tiffanie Parks RN) Social History: Marital status: household members: spouse number of children: 3 current occupational status: retired Service: No Tobacco: Smoking Status: Former smoker Alcohol: alcohol intake: current Alcohol type: wine alcohol intake frequency: a few times a week Substance Use: substance use type: does not use Dietary Habits: caffeine: Yes Personal Safety: victim of physical abuse: No victim of emotional abuse: No Review Of Systems (GEN) - Review of Systems Generalized/Overall Review: Present: Chills, Fever Respiratory: Present: Shortness of Breath Cardiac: Absent: Chest Pain Abdominal: Absent: Abdominal Pain Misc: All systems neg except as marked Immunizations: IMMUNIZATION HX Immunizations Up to Date Yes History of Influenza Vaccine Yes Hx Pneumococcal Vaccination Yes Allergies/Adverse Reactions: Allergies Allergy/AdvReac Type Severity Reaction Status Date / Time shellfish derived Allergy Intermediate eyes Verified 09/29/19 12:24 swelling, peeled Home Medications: HOME MEDICATIONS Umeclidinium [place] [Incruse Ellipta] 62.5 mcg INHALATION DAILY 11/10/16 [Last Taken Unknown] Naproxen Sodium [Aleve] 220 mg PO BID PRN 03/20/18 [Last Taken Unknown] Fluticasone/Vilanterol [Breo Ellipta 200-25 Mcg INH] 1 ea INHALATION DAILY 08/21/18 [Last Taken Unknown] guaifenesin 1,200 mg tablet, extended release 12 hr 1,200 mg PO BID 01/07/19 [Last Taken Unknown] metoprolol succinate 50 mg tablet,extended release 24 hr 25 mg PO HS #30 tab 01/24/19 [Last Taken Unknown] Atorvastatin Calcium [Lipitor] 20 mg PO HS 09/06/19 [Last Taken Unknown] Diazepam 5 mg PO TID PRN 09/06/19 [Last Taken Unknown] Diazepam 10 mg PO HS 09/06/19 [Last Taken Unknown] Ipratropium/Albuterol Sulfate [Iprat-Albut 0.5-3(2.5) mg/3 ml] 3 ml INHALATION Q4H PRN 09/06/19 [Last Taken Unknown] Levothyroxine Sodium [Synthroid] 88 mcg PO DAILY 09/06/19 [Last Taken Unknown] Montelukast Sodium [Singulair] 10 mg PO 1700 09/06/19 [Last Taken Unknown] QUEtiapine FUMARATE [Seroquel] 25 mg PO HS 09/06/19 [Last Taken Unknown] Sertraline HCl [Zoloft] 100 mg PO BID 09/06/19 [Last Taken Unknown] Spironolactone 25 mg PO BID 09/06/19 [Last Taken Unknown] Acetaminophen [Tylenol] 500 mg PO BID PRN 09/29/19 [Last Taken Unknown] Albuterol Sulfate [Proair Hfa] 2 puff INHALATION Q4H PRN 09/29/19 [Last Taken Unknown] traMADol HCL [Tramadol HCl] 50 mg PO Q4H PRN 09/29/19 [Last Taken Unknown] Exam - Exam Vital Signs: Vital Signs - Last Taken Temp 37.2 C 09/29/19 11:41 Pulse 91 09/29/19 11:41 Resp 20 09/29/19 11:41 BP 98/67 09/29/19 11:41 Pulse Ox 91 L 09/29/19 11:41 Constitutional: Present: Alert, Cooperative, Well developed, Well nourished, Mild distress ENT Exam: Present: hearing grossly normal Eye Exam: bilateral eye: normal inspection, PERRL, EOMI Neck: Present: non-tender, trachea midline. Absent: lymphadenopathy (R), lymphadenopathy (L) Back Exam: Present: normal inspection, no CVA tenderness, no vertebral tenderness Respiratory: Present: decreased breath sounds - Throughout all lung ann Cardiovascular/Chest: Present: normal peripheral pulses, regular rate, rhythm, no murmur Peripheral Pulses: dorsalis-pedis (R): 1+, dorsalis-pedis (L): 1+ Abdomen: Present: Normal bowel sounds, soft, nontender Extremity: Present: no pedal edema Skin Exam: Present: normal color, warm/dry Neurologic: Present: alert, normal mood/affect Appearance: Present: appropriate appearance, appropriate insight Eye contact: Present: cooperative, good eye contact Thoughts: Present: normal thought pattern, normal mood /affect Diagnostic Studies: Abnormal Lab Results 09/29/19 09/29/19 09/29/19 Range/Units 09:43 09:52 09:52 Plt Count 139 L (150-450) K/mm3 Neutrophils % 84.8 H (42-75.0) % Lymphocytes % 9.6 L (20-51) % Lymphocytes # 0.68 L (1.5-3.5) k/mm3 pCO2 57.8 H (32.0-45.0) mmHg pO2 63.7 L (83.0-108.0) mmHg Total CO2 27.0 H (19.0-24.0) mmol/L Base Excess -2.9 L (-2.0-3.0) mmol/L ABG pH 7.26 L (7.35-7.45) ABG O2 Sat (Measured) 88.6 L (94.0-98.0) % Carbon Dioxide 33.3 H (24-32.6) mmol/L Random Glucose 164 H (70-110) mg/dL Calcium Adj for Albumin 7.8 L (8.4-10.2) mg/dL Laboratory Results WBC 7.1 K/mm3 (4.0-10.5) 09/29/19 09:52 RBC 4.49 M/mm3 (4.2-5.4) 09/29/19 09:52 Hgb 13.9 gm/dL (12.5-16.0) 09/29/19 09:52 Hct 43.0 % (37.0-47.0) 09/29/19 09:52 MCV 95.8 fl (78-100) 09/29/19 09:52 MCH 31.0 pg (27-31) 09/29/19 09:52 MCHC 32.3 g/dl (32-36) 09/29/19 09:52 RDW 13.3 % (11.5-14.0) 09/29/19 09:52 Plt Count 139 K/mm3 (150-450) L 09/29/19 09:52 MPV 10.0 fl (8-12.5) 09/29/19 09:52 Immature Gran % (Auto) 0.10 % (0.001-0.429) 09/29/19 09:52 Immature Gran # (Auto) 0.01 K/mm3 (0.000-0.0310) 09/29/19 09:52 Neutrophils % 84.8 % (42-75.0) H 09/29/19 09:52 Lymphocytes % 9.6 % (20-51) L 09/29/19 09:52 Monocytes % 2.7 % (0.0-9) 09/29/19 09:52 Eosinophils % 2.4 % (0.0-3.0) 09/29/19 09:52 Basophils % 0.4 % (0.0-1.0) 09/29/19 09:52 Nucleated RBC % 0.0 k/mm3 (0-1) 09/29/19 09:52 Neutrophils # 6.0 K/mm3 (1.3-6.0) 09/29/19 09:52 Lymphocytes # 0.68 k/mm3 (1.5-3.5) L 09/29/19 09:52 Monocytes # 0.2 k/mm3 (0.0-1.0) 09/29/19 09:52 Eosinophils # 0.2 k/mm3 (0.0-0.7) 09/29/19 09:52 Absolute Basophils 0.0 k/mm3 (0.0-0.1) 09/29/19 09:52 pCO2 57.8 mmHg (32.0-45.0) H 09/29/19 09:43 pO2 63.7 mmHg (83.0-108.0) L 09/29/19 09:43 HCO3 25.2 mmol/L (21.0-28.0) 09/29/19 09:43 Total CO2 27.0 mmol/L (19.0-24.0) H 09/29/19 09:43 Base Excess -2.9 mmol/L (-2.0-3.0) L 09/29/19 09:43 ABG pH 7.26 (7.35-7.45) L 09/29/19 09:43 ABG O2 Sat (Measured) 88.6 % (94.0-98.0) L 09/29/19 09:43 Sodium 139 mmol/L (132-142) 09/29/19 09:52 Plasma Sodium 140 mmol/L (130-142) 09/29/19 09:52 Potassium 4.1 mmol/L (3.4-4.6) 09/29/19 09:52 Chloride 98 mmol/L (97-106) 09/29/19 09:52 Carbon Dioxide 33.3 mmol/L (24-32.6) H 09/29/19 09:52 Anion Gap 11.8 mmol/L (6.8-13.8) 09/29/19 09:52 BUN 12 mg/dL (3-23) 09/29/19 09:52 Creatinine 0.74 mg/dL (0.4-1.4) 09/29/19 09:52 Est GFR (Non-Af Amer) 82 mL/min (60-130) 09/29/19 09:52 BUN/Creatinine Ratio 16.2 (9.0-21.6) 09/29/19 09:52 Random Glucose 164 mg/dL (70-110) H 09/29/19 09:52 Calcium 8.2 mg/dL (7.9-10.9) 09/29/19 09:52 Calcium Adj for Albumin 7.8 mg/dL (8.4-10.2) L 09/29/19 09:52 Magnesium 1.8 mg/dL (1.2-2.8) 09/29/19 09:52 Total Bilirubin 0.4 mg/dL (0.0-1.1) 09/29/19 09:52 AST 28 U/L (0-48) 09/29/19 09:52 ALT 28 U/L (19-67) 09/29/19 09:52 Alkaline Phosphatase 145 U/L (50-170) 09/29/19 09:52 Troponin I Less than 0.017 ng/mL (0.00-0.10) 09/29/19 09:52 B-Natriuretic Peptide 248 pg/mL (5-325) 09/29/19 09:52 Total Protein 7.7 gm/dL (6.2-8.2) 09/29/19 09:52 Albumin 4.1 gm/dl (3.4-5.0) 09/29/19 09:52 Assessment/Plan - Narrative Narrative: 69-year-old female with a past medical history of COPD, oxygen dependent on 2 L of oxygen at all times and on trilogy at night, asthma, anxiety, constipation, depression, hypothyroidism, pulmonary hypertension, hypertension, obstructive sleep apnea, psoriasis presents with complaints of shortness of breath x1 day. Her states that she woke up this morning was complaining of shortness of breath. In the ER she was found to be mildly hypoxic with oxygen saturation in the high 80s. She was started on BiPAP and given a dose of Solu-Medrol 125 mg. She also received such ceftriaxone and azithromycin. Chest x-ray is shows small bilateral pleural effusions, basilar consolidation felt to represent atelectasis or pneumonia. She was found to not have any leukocytosis, ABG showed PCO2 57.8, PO2 63.7, bicarb 25.2, CO2 27.0, pH 7.26, O2 saturation 88.6. She has been admitted for acute hypoxic, hypercapnic respiratory failure and suspected pneumonia. Plan #1 wean off of BiPAP as tolerated. Repeat ABG in 2 to 4 hours #2 continue with ceftriaxone and azithromycin day 1 #3 resume home medications for chronic comorbidities. #4 repeat CBC and CMP in the morning. Repeat ABG in the morning #5 Tylenol as needed for pain and fever - Assessment/Plan (1) Acute on chronic respiratory failure with hypoxia and hypercapnia Problem: Acute (2) Pneumonia Problem: Suspected (3) Obstructive sleep apnea Problem: Chronic (4) Constipation Problem: Chronic Qualifiers: (5) Anxiety Problem: Chronic (6) Depression Problem: Chronic Qualifiers: (7) COPD exacerbation Problem: Suspected (8) COPD exacerbation Problem: Suspected (9) Pulmonary hypertension Problem: Chronic (10) History of hypothyroidism Problem: Chronic (11) Hypertension Problem: Chronic Qualifiers: Hypertension type: essential hypertension Qualified Code(s): I10 - Essential (primary) hypertension
[2019-09-29 15:26] LABS: Urine Bilirubin 1 mg/dl (NEGATIVE); Urine Ketone 5 mg/dL (NEGATIVE); Urine Protein 15 mg/dL (NEGATIVE); Urine Specific Gravity 1.025 SP.GR. (1.005-1.010); Urine Urobilinogen Normal (NORMAL)
[2019-09-29 15:40] LABS: Urine Appearance Cloudy (CLEAR); Urine Bacteria 3+; Urine Blood 5 /ul (NEGATIVE); Urine Color Amber; Urine Nitrite Positive (NEGATIVE); Urine Transitional Epi Cells Few - 1+ /hpf
[2019-09-29] MEDS ORDERED: NAPROXEN SODIUM 220 MG TABLET PO PRN (17:18)
[2019-09-29] MEDS ORDERED: ACETAMINOPHEN 500 MG TABLET PO PRN (17:18)
[2019-09-29] MEDS ORDERED: ALBUTEROL SULFATE 2.5 MG/0.5 ML VIAL.NEB IH PRN (17:18)
[2019-09-29] MEDS ORDERED: traMADol HCL 50 MG TABLET PO PRN (17:18)
[2019-09-29] MEDS ORDERED: DIAZEPAM 5 MG TABLET PO PRN (17:18)
[2019-09-29] MEDS ORDERED: MONTELUKAST SODIUM 10 MG TABLET PO SCH (18:00)
[2019-09-29] MEDS: SPIRONOLACTONE 25 MG TABLET PO SCH (19:28)
[2019-09-29] MEDS: ROSUVASTATIN CALCIUM 10 MG TABLET PO SCH (19:28)
[2019-09-29] MEDS: METOPROLOL SUCCINATE 25 MG TABLET.SA PO SCH (19:28)
[2019-09-29] MEDS: QUEtiapine FUMARATE 25 MG TABLET PO SCH (19:28)
[2019-09-29] MEDS: DIAZEPAM 5 MG TABLET PO SCH (19:29)
[2019-09-29] MEDS: SERTRALINE HCL 100 MG TABLET PO SCH (19:30)
[2019-09-29] MEDS: ALBUTEROL SULFATE/IPRATROPIUM 3 ML NEBU IH PRN (19:39)
[2019-09-30] MEDS: DIAZEPAM 5 MG TABLET PO SCH (02:36)
[2019-09-30] MEDS: METOPROLOL SUCCINATE 25 MG TABLET.SA PO SCH (02:36)
[2019-09-30] MEDS: QUEtiapine FUMARATE 25 MG TABLET PO SCH (02:36)
[2019-09-30] MEDS: ROSUVASTATIN CALCIUM 10 MG TABLET PO SCH (02:36)
[2019-09-30] MEDS: SERTRALINE HCL 100 MG TABLET PO SCH ×2 (02:36→09:44)
[2019-09-30] MEDS: SPIRONOLACTONE 25 MG TABLET PO SCH ×2 (02:36→09:44)
[2019-09-30 06:29] LABS: Hematocrit 36.2 % (37.0-47.0); Hemoglobin 11.9 gm/dL (12.5-16.0); Mean Cell Volume 96.5 fl (78-100); Mean Corpuscular Hemoglobin 31.7 pg (27-31); Mean Corpuscular Hgb Conc 32.9 g/dl (32-36); Mean Platelet Volume 10.5 fl (8-12.5); Neutrophil # 8.9 K/mm3 (1.3-6.0); Neutrophil % 88.9 % (42-75.0); Platelet Count 122 K/mm3 (150-450); Red Blood Count 3.75 M/mm3 (4.2-5.4); Red Cell Distribution Width 13.4 % (11.5-14.0)
[2019-09-30 06:43] LABS: Albumin * 3.5 gm/dl (3.4-5.0); Anion Gap 10.2 mmol/L (6.8-13.8); Bilirubin, Total 0.5 mg/dL (0.0-1.1); Ca. Corrected For Albumin 8.5 mg/dL (8.4-10.2); Calcium * 8.4 mg/dL (7.9-10.9); Carbon Dioxide 34.8 mmol/L (24-32.6); Total Protein 7.3 gm/dL (6.2-8.2)
[2019-09-30] MEDS ORDERED: LEVOTHYROXINE SODIUM 88 MCG TABLET PO SCH (07:00)
[2019-09-30] MEDS ORDERED: FLUTICASONE PROPION/SALMETEROL 14 PUFF DISK.W.DEV IH SCH (09:00)
[2019-09-30] MEDS ORDERED: TIOTROPIUM BROMIDE 5 CAP INHALER IH SCH (09:00)
--- NOTE | 2019-09-30 10:56 | DS ---
(1) Acute on chronic respiratory failure with hypoxia and hypercapnia Problem: Resolved (2) Pneumonia Problem: Acute Qualifiers: Laterality: bilateral Lung location: lower lobe of lung (3) Obstructive sleep apnea Problem: Chronic (4) Constipation Problem: Chronic Qualifiers: (5) Anxiety Problem: Chronic (6) Depression Problem: Chronic Qualifiers: (7) COPD exacerbation Problem: Suspected (8) COPD exacerbation Problem: Suspected (9) Pulmonary hypertension Problem: Chronic (10) History of hypothyroidism Problem: Chronic (11) Hypertension Problem: Chronic Qualifiers: Hypertension type: essential hypertension Qualified Code(s): I10 - Essential (primary) hypertension Hospital Course: 69-year-old female with a past medical history of COPD, oxygen dependent on 2 L of oxygen at all times and on trilogy at night, asthma, anxiety, constipation, depression, hypothyroidism, pulmonary hypertension, hypertension, obstructive sleep apnea, psoriasis presents with complaints of shortness of breath x1 day. Her states that she woke up this morning was complaining of shortness of breath. In the ER she was found to be mildly hypoxic with oxygen saturation in the high 80s. She was started on BiPAP and given a dose of Solu-Medrol 125 mg. She also received such ceftriaxone and azithromycin. Chest x-ray is shows small bilateral pleural effusions, basilar consolidation felt to represent atelectasis or pneumonia. She was found to not have any leukocytosis, ABG showed PCO2 57.8, PO2 63.7, bicarb 25.2, CO2 27.0, pH 7.26, O2 saturation 88.6. She has been admitted for acute hypoxic, hypercapnic respiratory failure and suspected pneumonia. She remained on the BiPAP the whole night and her ABGs have improved this morning. On admission she was started on ceftriaxone and azithromycin and completed 2 days of antibiotics. I will send him on Cefpodoxime 200 mg twice a day for 5 more days and 1 more dose of azithromycin 250 mg for 2 more days. He is she has already received azithromycin 500 mg IV x 2 doses here in the hospital. Her states that she had been noncompliant with her home trilogy machine for several days. I believe this is why she came in with decompensation. She has been advised that she needs to use her trilogy every night as has been prescribed by her manufacturing supervisor Dr. Shawna PALUMBO this morning showspH is 7.36, PCO2 47.5, PO2 104, bicarb 26.4, O2 saturation 97.5. She also has a positive UA, culture is pending. She should be adequately covered with the Cefpodoxime that I am sending her home on. Procedures Performed: none Results and Findings: Pending Mircobiology Results 09/29/19 09:52 Blood Blood Culture - Preliminary NO GROWTH 24 HOURS 09/29/19 14:48 Urine,Voided Urine Culture - Preliminary No Growth Lab Pending Results 09/29/19 09:43: pCO2 57.8 H, pO2 63.7 L, HCO3 25.2, Total CO2 27.0 H, Base Excess -2.9 L, ABG pH 7.26 L, ABG O2 Sat (Measured) 88.6 L 09/29/19 09:52: WBC 7.1, RBC 4.49, Hgb 13.9, Hct 43.0, MCV 95.8, MCH 31.0, MCHC 32.3, RDW 13.3, Plt Count 139 L, MPV 10.0, Immature Gran % (Auto) 0.10, Immature Gran # (Auto) 0.01, Neutrophils % 84.8 H, Lymphocytes % 9.6 L, Monocytes % 2.7, Eosinophils % 2.4, Basophils % 0.4, Nucleated RBC % 0.0, Neutrophils # 6.0, Lymphocytes # 0.68 L, Monocytes # 0.2, Eosinophils # 0.2, Absolute Basophils 0.0 09/29/19 09:52: Sodium 139, Plasma Sodium 140, Potassium 4.1, Chloride 98, Carbon Dioxide 33.3 H, Anion Gap 11.8, BUN 12, Creatinine 0.74, Est GFR (Non-Af Amer) 82, BUN/Creatinine Ratio 16.2, Random Glucose 164 H, Calcium 8.2, Calcium Adj for Albumin 7.8 L, Magnesium 1.8, Total Bilirubin 0.4, AST 28, ALT 28, Alkaline Phosphatase 145, B-Natriuretic Peptide 248, Total Protein 7.7, Albumin 4.1 09/29/19 09:52: Troponin I Less than 0.017 09/29/19 14:35: pCO2 53.1 H, pO2 77.2 L, HCO3 25.5, Total CO2 27.1 H, Base Excess -1.6, ABG pH 7.30 L, ABG O2 Sat (Measured) 93.9 L 09/29/19 14:48: Urine Color [place], Urine Appearance Cloudy, Urine pH 6.0, Ur Specific [place] 1.025, Urine Protein 15 H, Urine Glucose (UA) Negative, Urine Ketones 5, Urine Blood 5 H, Urine Nitrate Positive H, Urine Bilirubin 1 H, Urine Ictotest Negative, Prot Sulfosalicylic Acd 1+, Urine Urobilinogen Normal, Ur Leukocyte Esterase 25 H, Urine RBC 5-10 H, Urine WBC 10-25 H, Ur Epithelial Cells 5-10 H, Ur Transition Epith Cell Few - 1+ H, Urine Bacteria 3+ H, Urine Culture Comments Culture to follow 09/30/19 05:37: pCO2 47.5 H, pO2 104.0, HCO3 26.4, Total CO2 27.8 H, Base Excess 0.5, ABG pH 7.36, ABG O2 Sat (Measured) 97.5 09/30/19 06:24: WBC 10.0 D, RBC 3.75 L, Hgb 11.9 L, Hct 36.2 L, MCV 96.5, MCH 31.7 H, MCHC 32.9, RDW 13.4, Plt Count 122 L, MPV 10.5, Immature Gran % (Auto) 0.30, Immature Gran # (Auto) 0.03, Neutrophils % 88.9 H, Lymphocytes % 6.9 L, Monocytes % 3.9, Eosinophils % 0.0, Basophils % 0.0, Nucleated RBC % 0.0, Neutrophils # 8.9 H, Lymphocytes # 0.69 L, Monocytes # 0.4, Eosinophils # 0.0, Absolute Basophils 0.0 09/30/19 06:24: Sodium 138, Plasma Sodium 138, Potassium 4.0, Chloride 97, Carbon Dioxide 34.8 H, Anion Gap 10.2, BUN 20 D, Creatinine 0.74, Est GFR (Non- Af Amer) 82, BUN/Creatinine Ratio 27.0 H, Random Glucose 128 H, Calcium 8.4, Calcium Adj for Albumin 8.5, Total Bilirubin 0.5, AST 24, ALT 28, Alkaline Phosphatase 108, Total Protein 7.3, Albumin 3.5 Discharge Location: Home Disposition: Home self-care Condition: Fair Discharge Activity: Activity as tolerated Discharge Diet: Low salt Referrals: Belle Allen MD [Primary Care Provider] - Additional Patient Instructions (free text): TCM please Prescriptions (Any new or edited meds): Azithromycin 250 mg PO DAILY #2 tab Transmission Status: Pending to [place] Cefpodoxime Proxetil 200 mg PO BID #10 tab Transmission Status: Pending to [place], [place] Complete Home Medications List: Complete Home Medication List: Umeclidinium [place] [Incruse Ellipta] 62.5 mcg INHALATION DAILY 11/10/16 Naproxen Sodium [Aleve] 220 mg PO BID PRN 03/20/18 Fluticasone/Vilanterol [Breo Ellipta 200-25 Mcg INH] 1 ea INHALATION DAILY 08/21/18 guaifenesin 1,200 mg tablet, extended release 12 hr 1,200 mg PO BID 01/07/19 metoprolol succinate 50 mg tablet,extended release 24 hr 25 mg PO HS #30 tab 01/24/19 Atorvastatin Calcium [Lipitor] 20 mg PO HS 09/06/19 Diazepam 5 mg PO TID PRN 09/06/19 Diazepam 10 mg PO HS 09/06/19 Ipratropium/Albuterol Sulfate [Iprat-Albut 0.5-3(2.5) mg/3 ml] 3 ml INHALATION Q4H PRN 09/06/19 Levothyroxine Sodium [Synthroid] 88 mcg PO DAILY 09/06/19 Montelukast Sodium [Singulair] 10 mg PO 1700 09/06/19 QUEtiapine FUMARATE [Seroquel] 25 mg PO HS 09/06/19 Sertraline HCl [Zoloft] 100 mg PO BID 09/06/19 Spironolactone 25 mg PO BID 09/06/19 Acetaminophen [Tylenol] 500 mg PO BID PRN 09/29/19 Albuterol Sulfate [Proair Hfa] 2 puff INHALATION Q4H PRN 09/29/19 traMADol HCL [Tramadol HCl] 50 mg PO Q4H PRN 09/29/19 Azithromycin 250 mg PO DAILY #2 tab 09/30/19 Cefpodoxime Proxetil 200 mg PO BID #10 tab 09/30/19
[2019-09-30] MEDS ORDERED: AZITHROMYCIN 500 MG in DEXTROSE 5 % IN WATER 250 ML IV SCH ×2 (11:30)
[2019-09-30] MEDS: ALBUTEROL SULFATE/IPRATROPIUM 3 ML NEBU IH PRN (11:55)
[2019-09-30 13:06] VITALS: BP 114/54
== END 2019-09-30 13:20 | disposition home or self-care (01) ==
LOC: MS 09:17 → ER 09:17 → MS 12:22
PROVIDERS: ADMIT Internal Medicine; ATTEND Internal Medicine
DX: K59.00 Constipation, unspecified; J96.21 Acute and chronic respiratory failure with hypoxia; F41.9 Anxiety disorder, unspecified; J96.22 Acute and chronic respiratory failure with hypercapnia; G47.33 Obstructive sleep apnea (adult) (pediatric); I27.20 Pulmonary hypertension, unspecified; J18.9 Pneumonia, unspecified organism
CPT/HCPCS: 36415; 36600; 71010; 71045; 80053; 81001; 82803; 83519; 83735; 83880; 84484; 85025; 87040; 87077; 87086; 87186; 93005; 94640; 94660; 96365; 96366; 96375; 99285; G0378

== ENCOUNTER 2020-03-11 17:55 | Inpatient (IN) ==
[2020-03-11] MEDS ORDERED: ALBUTEROL SULFATE 2.5 MG/0.5 ML VIAL.NEB IH ONE (17:59)
[2020-03-11] MEDS ORDERED: METHYLPREDNISOLONE SOD SUCC/PF 125 MG/2 ML VIAL IV ONE (18:03)
[2020-03-11 18:43] LABS: Hematocrit 41.9 % (37.0-47.0); Hemoglobin 13.2 gm/dL (12.5-16.0); Mean Cell Volume 99.3 fl (78-100); Mean Corpuscular Hemoglobin 31.3 pg (27-31); Mean Corpuscular Hgb Conc 31.5 g/dl (32-36); Mean Platelet Volume 10.1 fl (8-12.5); Neutrophil # 8.8 K/mm3 (1.3-6.0); Neutrophil % 84.5 % (42-75.0); Platelet Count 162 K/mm3 (150-450); Red Blood Count 4.22 M/mm3 (4.2-5.4); Red Cell Distribution Width 14.1 % (11.5-14.0); White Blood Count 10.4 K/mm3 (4.0-10.5)
--- NOTE | 2020-03-11 18:49 | ERNOTE ---
<Ayaan Schneider - Last Filed: 03/11/20 19:51> Date of Service: 03/11/20 Time Seen by Provider: 03/11/20 17:58 Stated Complaint: Shortness of breath Source: EMS Exam Limitations: clinical condition Immunizations: IMMUNIZATION HX Immunizations Up to Date Yes History of Influenza Vaccine Yes Hx Pneumococcal Vaccination Yes Allergies/Adverse Reactions: Allergies shellfish derived Allergy (Intermediate, Verified 03/11/20 21:42) eyes swelling, peeled Home Medications: HOME MEDICATIONS Umeclidinium [place] [Incruse Ellipta] 62.5 mcg INHALATION DAILY 11/10/16 [Last Taken Unknown] Naproxen Sodium [Aleve] 220 mg PO BID PRN 03/20/18 [Last Taken Unknown] Fluticasone/Vilanterol [Breo Ellipta 200-25 Mcg INH] 1 ea INHALATION DAILY 08/21/18 [Last Taken Unknown] guaifenesin 1,200 mg tablet, extended release 12 hr 1,200 mg PO BID 01/07/19 [Last Taken Unknown] Ipratropium/Albuterol Sulfate [Iprat-Albut 0.5-3(2.5) mg/3 ml] 3 ml INHALATION Q4H PRN 09/06/19 [Last Taken Unknown] Acetaminophen [Tylenol] 500 mg PO BID PRN 09/29/19 [Last Taken Unknown] Albuterol Sulfate [Proair Hfa] 2 puff INHALATION Q4H PRN 09/29/19 [Last Taken Unknown] Azithromycin 250 mg PO DAILY #2 tab 09/30/19 [Last Taken Unknown] Cefpodoxime Proxetil 200 mg PO BID #10 tab 09/30/19 [Last Taken Unknown] tramadol 50 mg tablet 50 mg PO Q6H PRN #120 tab 10/18/19 [Last Taken Unknown] atorvastatin 20 mg tablet 20 mg PO HS #30 tab 11/21/19 [Last Taken Unknown] levothyroxine 88 mcg tablet 88 mcg PO DAILY #30 tab 11/21/19 [Last Taken Unknown] montelukast 10 mg tablet 10 mg PO 1700 #30 tab 11/21/19 [Last Taken Unknown] quetiapine 25 mg tablet 25 mg PO HS #30 tab 11/21/19 [Last Taken Unknown] spironolactone 25 mg tablet 25 mg PO BID #60 tab 11/21/19 [Last Taken Unknown] metoprolol succinate 50 mg tablet,extended release 24 hr See Rx Instructions .ROUTE .COMPLEX #30 unknown measurement unit code: tablet 01/17/20 [Last Taken Unknown] nystatin 100,000 unit/gram topical powder 1 applic TP BID #60 g 01/17/20 [Last Taken Unknown] diazepam 10 mg tablet 10 mg PO HS #60 tab 02/14/20 [Last Taken Unknown] sertraline 100 mg tablet See Rx Instructions .ROUTE .COMPLEX #60 tab 02/14/20 [Last Taken Unknown] - History of Present Ilness Narrative: patient presents to ed with c/o severe dyspnea, known hx of oxygen dependant copd ambulance brings patient to ed on nonrebreather, in moderate distress Timing: constant, getting worse Severity: severe Frequency/Possible Cause: Reports: frequent episodes Modifying Factors - Improves: Reports: nothing Modifying Factors - Worsens: Reports: coughing, deep breath Associated Symptoms: Reports: cough, shortness of breath, wheezing Prior Treatment: Reports: recently seen, treated by physician Review of Systems - Narrative Narrative: unable to obtain ros due to patient condition - Review of Systems Constitutional: Present: See HPI, weakness, fatigue, malaise EYE: Present: no symptoms reported ENT: Present: no symptoms reported Respiratory: Present: See HPI, shortness of breath, cough, orthopnea, wheezing Cardiology: Present: no symptoms reported Gastrointestinal/Abdominal: Present: no symptoms reported Genitourinary: Present: no symptoms reported Musculoskeletal: Present: no symptoms reported Skin: Present: no symptoms reported Neurological: Present: no symptoms reported Endocrine: Present: no symptoms reported Hematologic/Lymphatic: Present: no symptoms reported Psych: Present: no symptoms reported Medical History (Last Reviewed 01/09/20 @ 13:47 by Naty Reynolds RN) Witnessed apneic spells (Chronic) Onset Date: ~10/15/15 Respiratory failure with hypoxia (Chronic) Onset Date: ~02/05/16 Psoriasis (Chronic) Onset Date: ~09/20/13 Oxygen dependent (Chronic) Onset Date: ~10/15/15 Obstructive sleep apnea (Chronic) Onset Date: ~11/06/15 Left leg pain (Chronic) Onset Date: ~06/22/15 Fracture, vertebral, lumbar closed (Chronic) Onset Date: ~04/20/14 Dizziness (Chronic) Onset Date: Unknown Constipation (Chronic) Onset Date: ~04/20/14 Benign positional vertigo (Chronic) Onset Date: ~04/13/14 Back pain (Chronic) Onset Date: ~06/22/15 Back muscle spasm (Chronic) Onset Date: ~06/22/15 Anxiety (Chronic) Onset Date: Unknown Allergic rhinitis (Chronic) Onset Date: ~09/20/13 History of hypothyroidism (Chronic) Hypertension (Chronic) History of depression (Chronic) Hx of pulmonary hypertension (Chronic) History of COPD (Chronic) Asthma, moderate persistent Surgical History: Surgical History (Last Reviewed 01/09/20 @ 13:47 by Naty Reynolds RN) H/O tooth extraction Onset Date: Unknown full mouth History of tonsillectomy Onset Date: Unknown Family History: Family History (Last Reviewed 01/09/20 @ 13:47 by Naty Reynolds RN) Mother , age 91-Alzheimers Cancer colon ca-dx age 30-40's Alzheimers disease Father , age 86-cancer Cancer prostate ca-dx age 70's, colon ca at 75. Brother Alive and well Grandfather Cancer maternal-colon ca-unknown age of dx Aunt Cancer maternal aunt-colon ca-dx age 40's Social History: (Last Reviewed 01/09/20 @ 13:47 by Naty Reynolds RN) Social History: Marital status: household members: spouse number of children: 3 current occupational status: retired Service: No Tobacco: Smoking Status: Former smoker Alcohol: alcohol intake: current Alcohol type: wine alcohol intake frequency: a few times a week Substance Use: substance use type: does not use Dietary Habits: caffeine: Yes Personal Safety: victim of physical abuse: No victim of emotional abuse: No Physical Exam - Physical Exam General Appearance: Present: severe distress, lethargic Head Exam: Present: normal inspection, no evidence of injury Eye Exam: Normal inspection: bilateral, PERRL: bilateral, EOMI: bilateral Ears, Nose, Throat: Present: normal ENT inspection, normal pharynx Neck: Present: normal inspection, nontender Respiratory: Present: no respiratory distress, chest nontender, accessory muscle use, decreased breath sounds, crackles, rales, rhonchi, wheezing Cardiovascular/Chest: Present: irregularly irregular Gastrointestinal/Abdominal: Present: normal bowel sounds, nontender, nondistended, soft, no organomegaly Back Exam: Present: normal inspection, normal range of motion, no CVA tenderness, no vertebral tenderness Extremity Exam: Present: normal inspection, non-tender, normal range of motion, no edema Neurological Exam: Present: alert, oriented, normal mood/affect, no motor/sensory deficits Skin Exam: Present: normal color, warm/dry Lymphatic Exam: Present: no adenopathy Progress - Date and Time Seen: Date and Time: 03/11/20 19:51 patienrt improved, elvated d-dimer. to have ct - Results and Orders Patient's Lab Results:: I have reviewed the patient's lab results. - Vital Signs Patient's Vital Signs:: I have reviewed the patient's vital signs. Vital Signs: Vital Signs 03/11/20 18:05 03/11/20 18:07 03/11/20 18:22 Temperature 36.3 C Pulse Rate 89 86 82 Respiratory Rate 26 H 33 H 26 H Blood Pressure 162/89 H O2 Sat by Pulse Oximetry 95 97 81 L 03/11/20 18:24 Temperature Pulse Rate 81 Respiratory Rate 25 H Blood Pressure O2 Sat by Pulse Oximetry 88 L - EKG EKG #1 EKG: atrial fibrillation - X-Ray X-Ray #1 Interpretation: Discd w/ radiologist - copd, infitrate left lower lobe - Progress/Reassessment Chief Complaint: Upper Respiratory Symptoms Progress:: Improved - Transfer of Care Physician Sign Out: Ayaan Schneider Receiving Physician: Hayden Strickland Expected Disposition: Admit Plan - Plan Plan: to be admitted Departure Clinical Impression: COPD with exacerbation Pneumonia Qualifiers: Pneumonia type: due to unspecified organism Laterality: bilateral Lung location: lower lobe of lung Qualified Code(s): J18.9 - Pneumonia, unspecified organism Respiratory failure with hypoxia Qualifiers: Chronicity: acute on chronic Qualified Code(s): J96.21 - Acute and chronic respiratory failure with hypoxia - Departure Disposition: Still a patient Condition: Serious <Hayden Strickland - Last Filed: 03/12/20 04:37> Immunizations: IMMUNIZATION HX Immunizations Up to Date Yes History of Influenza Vaccine Yes Hx Pneumococcal Vaccination Yes Medical History (Last Reviewed 03/12/20 @ 00:50 by Claire Simons RN) Witnessed apneic spells (Chronic) Onset Date: ~10/15/15 Respiratory failure with hypoxia (Chronic) Onset Date: ~02/05/16 Psoriasis (Chronic) Onset Date: ~09/20/13 Oxygen dependent (Chronic) Onset Date: ~10/15/15 Obstructive sleep apnea (Chronic) Onset Date: ~11/06/15 Left leg pain (Chronic) Onset Date: ~06/22/15 Fracture, vertebral, lumbar closed (Chronic) Onset Date: ~04/20/14 Dizziness (Chronic) Onset Date: Unknown Constipation (Chronic) Onset Date: ~04/20/14 Benign positional vertigo (Chronic) Onset Date: ~04/13/14 Back pain (Chronic) Onset Date: ~06/22/15 Back muscle spasm (Chronic) Onset Date: ~06/22/15 Anxiety (Chronic) Onset Date: Unknown Allergic rhinitis (Chronic) Onset Date: ~09/20/13 History of hypothyroidism (Chronic) Hypertension (Chronic) History of depression (Chronic) Hx of pulmonary hypertension (Chronic) History of COPD (Chronic) Asthma, moderate persistent Surgical History: Surgical History (Last Reviewed 03/12/20 @ 00:50 by Claire Simons RN) H/O tooth extraction Onset Date: Unknown full mouth History of tonsillectomy Onset Date: Unknown Family History: Family History (Last Reviewed 03/12/20 @ 00:50 by Claire Simons RN) Mother , age 91-Alzheimers Cancer colon ca-dx age 30-40's Alzheimers disease Father , age 86-cancer Cancer prostate ca-dx age 70's, colon ca at 75. Brother Alive and well Grandfather Cancer maternal-colon ca-unknown age of dx Aunt Cancer maternal aunt-colon ca-dx age 40's Social History: (Last Reviewed 03/12/20 @ 00:50 by Claire Simons RN) Social History: Marital status: household members: spouse number of children: 3 current occupational status: retired Service: No Tobacco: Smoking Status: Former smoker Alcohol: alcohol intake: current Alcohol type: wine alcohol intake frequency: a few times a week Substance Use: substance use type: does not use Dietary Habits: caffeine: Yes Personal Safety: victim of physical abuse: No victim of emotional abuse: No Physical Exam - Physical Exam General Appearance: Present: wd/wn, alert, moderate distress Head Exam: Present: normal inspection, no evidence of injury Respiratory: Present: accessory muscle use, decreased breath sounds Neurological Exam: Present: alert, oriented Skin Exam: Present: normal color, warm/dry Progress - Results and Orders Patient's Lab Results:: I have reviewed the patient's lab results. - Vital Signs Vital Signs: Vital Signs 03/11/20 18:05 03/11/20 18:07 03/11/20 18:22 Temperature 36.3 C Pulse Rate 89 86 82 Respiratory Rate 26 H 33 H 26 H Blood Pressure 162/89 H O2 Sat by Pulse Oximetry 95 97 81 L 03/11/20 18:24 03/11/20 18:27 03/11/20 18:32 Temperature Pulse Rate 81 84 84 Respiratory Rate 25 H 30 H Blood Pressure O2 Sat by Pulse Oximetry 88 L 90 L 03/11/20 18:44 03/11/20 18:45 03/11/20 18:50 Temperature Pulse Rate 102 H 82 86 Respiratory Rate 16 25 H 24 H Blood Pressure 103/71 124/89 O2 Sat by Pulse Oximetry 95 95 96 03/11/20 18:52 03/11/20 18:56 03/11/20 19:09 Temperature Pulse Rate 85 82 78 Respiratory Rate 23 H 25 H 23 H Blood Pressure 113/64 112/68 113/52 O2 Sat by Pulse Oximetry 97 95 97 03/11/20 19:25 03/11/20 19:28 03/11/20 19:39 Temperature Pulse Rate 84 79 80 Respiratory Rate 19 23 H 19 Blood Pressure 121/54 117/52 O2 Sat by Pulse Oximetry 99 98 97 03/11/20 19:53 03/11/20 19:55 03/11/20 20:06 Temperature Pulse Rate 77 80 75 Respiratory Rate 28 H 16 19 Blood Pressure 126/59 122/54 O2 Sat by Pulse Oximetry 96 95 96 03/11/20 20:08 03/11/20 20:24 03/11/20 20:38 Temperature Pulse Rate 79 77 78 Respiratory Rate 21 H 12 20 Blood Pressure 121/62 124/53 O2 Sat by Pulse Oximetry 99 94 91 L 03/11/20 21:14 03/11/20 21:18 03/11/20 21:41 Temperature Pulse Rate 77 76 74 Respiratory Rate 15 17 19 Blood Pressure 129/64 129/64 O2 Sat by Pulse Oximetry 93 92 L 90 L 03/11/20 21:43 Temperature Pulse Rate 75 Respiratory Rate 17 Blood Pressure O2 Sat by Pulse Oximetry 91 L - Progress/Reassessment Progress Note-Subjective: 03/11/20 21:30 Patient has been improving on BiPAP settings and we wean back somewhat on the oxygen level. 03/11/20 22:[address] Vázquez he agrees with admission on BiPAP. As the patient was doing better we were going to attempt to wean off of the BiPAP when the technical service specialist found the patient's usual nighttime BiPAP settings. These are pretty close to the settings we have so we will let the patient remain on BiPAP throughout the night as she usually does at home and can hopefully come off in the morning as she would usually do. Hayden Strickland DO
[2020-03-11] MEDS ORDERED: cefTRIAXone SODIUM 1,000 MG/100 ML BAG IV ONE (18:59)
[2020-03-11 19:05] LABS: ALT 28 U/L (19-67); AST 25 U/L (0-48); Albumin * 4.2 gm/dl (3.4-5.0); Alkaline Phosphatase * 189 U/L (50-170); Anion Gap 4.4 mmol/L (6.8-13.8); BNP * 339 pg/mL (5-325); BUN/Creatinine Ratio 11.5 (9.0-21.6); Bilirubin, Total 0.5 mg/dL (0.0-1.1); Blood Urea Nitrogen 10 mg/dL (3-23); Ca. Corrected For Albumin 9.1 mg/dL (8.4-10.2); Calcium * 9.6 mg/dL (7.9-10.9); Carbon Dioxide 40.1 mmol/L (24-32.6); Chloride 100 mmol/L (97-106); Glucose * 126 mg/dL (70-110); Potassium 4.5 mmol/L (3.4-4.6); Sodium 140 mmol/L (132-142); Total Protein 8.6 gm/dL (6.2-8.2); Troponin I Less than 0.017 ng/mL (0.00-0.10)
[2020-03-11 21:07] LABS: Urine Appearance Clear (CLEAR); Urine Color Yellow
[2020-03-11 21:08] LABS: Urine Bilirubin Normal (NEGATIVE); Urine Blood 5 /ul (NEGATIVE); Urine Ketone Negative (NEGATIVE)
[2020-03-11 21:09] LABS: Urine Protein 15 mg/dL (NEGATIVE); Urine Urobilinogen Normal (NORMAL)
[2020-03-11 21:10] LABS: Urine Bacteria None Seen; Urine Nitrite Negative (NEGATIVE); Urine RBC None Seen /hpf (0-5); Urine WBC None Seen /hpf (0-5)
[2020-03-12] MEDS ORDERED: traMADol HCL 50 MG TABLET PO PRN (09:30)
[2020-03-12] MEDS ORDERED: ACETAMINOPHEN 500 MG TABLET PO PRN (09:30)
[2020-03-12] MEDS ORDERED: NAPROXEN SODIUM 220 MG TABLET PO PRN (09:30)
[2020-03-12] MEDS ORDERED: DIAZEPAM 5 MG TABLET PO PRN (09:30)
[2020-03-12] MEDS: SERTRALINE HCL 100 MG TABLET PO SCH ×2 (10:56→20:42)
[2020-03-12] MEDS: LEVOTHYROXINE SODIUM 88 MCG TABLET PO SCH (10:56)
[2020-03-12] MEDS: NYSTATIN 15 APPL BTL TP SCH ×2 (10:56→20:42)
[2020-03-12] MEDS: SPIRONOLACTONE 25 MG TABLET PO SCH ×2 (10:56→20:41)
[2020-03-12] MEDS: TIOTROPIUM BROMIDE 5 CAP INHALER IH SCH (10:57)
[2020-03-12] MEDS: FLUTICASONE PROPION/SALMETEROL 14 PUFF DISK.W.DEV IH SCH ×2 (10:57→20:41)
--- NOTE | 2020-03-12 12:20 | HP ---
Chief Complaint - Chief Complaint Date of Service: 03/12/20 Time of Service: 08:53 Chief Complaint: Shortness of breath x 2 days History of Present Illness: 69-year-old female with a past medical history of moderate persistent asthma, COPD oxygen dependent with 2 to 3 L during the day and on trilogy at night, depression, hypothyroidism, constipation, obstructive sleep apnea, psoriasis, respiratory failure with hypoxia presents from home with complaints of shortness of breath for the past 2 to 3 days. In the emergency department she was found to be hypoxic with oxygen level down to 89. Her blood gas showed acidosis respiratory acidosis. She was started on BiPAP. Chest x-ray showed small left costophrenic angle infiltrate, CT angios was negative for pulmonary embolism, positive for borderline lymph nodes in the mediastinum and hilum, persistent but improved bilateral patchy infiltrates, follow-up CT chest in 3 months is recommended to evaluate for resolution. She was diagnosed with pneumonia and started on ceftriaxone. Medical History (Last Reviewed 03/12/20 @ 00:50 by Claire Simons RN) Witnessed apneic spells (Chronic) Onset Date: ~10/15/15 Respiratory failure with hypoxia (Chronic) Onset Date: ~02/05/16 Psoriasis (Chronic) Onset Date: ~09/20/13 Oxygen dependent (Chronic) Onset Date: ~10/15/15 Obstructive sleep apnea (Chronic) Onset Date: ~11/06/15 Left leg pain (Chronic) Onset Date: ~06/22/15 Fracture, vertebral, lumbar closed (Chronic) Onset Date: ~04/20/14 Dizziness (Chronic) Onset Date: Unknown Constipation (Chronic) Onset Date: ~04/20/14 Benign positional vertigo (Chronic) Onset Date: ~04/13/14 Back pain (Chronic) Onset Date: ~06/22/15 Back muscle spasm (Chronic) Onset Date: ~06/22/15 Anxiety (Chronic) Onset Date: Unknown Allergic rhinitis (Chronic) Onset Date: ~09/20/13 History of hypothyroidism (Chronic) Hypertension (Chronic) History of depression (Chronic) Hx of pulmonary hypertension (Chronic) History of COPD (Chronic) Asthma, moderate persistent Surgical History: Surgical History (Last Reviewed 03/12/20 @ 00:50 by Claire Simons RN) H/O tooth extraction Onset Date: Unknown full mouth History of tonsillectomy Onset Date: Unknown Family History: Family History (Last Reviewed 03/12/20 @ 00:50 by Claire Simons RN) Mother , age 91-Alzheimers Cancer colon ca-dx age 30-40's Alzheimers disease Father , age 86-cancer Cancer prostate ca-dx age 70's, colon ca at 75. Brother Alive and well Grandfather Cancer maternal-colon ca-unknown age of dx Aunt Cancer maternal aunt-colon ca-dx age 40's Social History: (Last Reviewed 03/12/20 @ 00:50 by Claire Simons RN) Social History: Marital status: household members: spouse number of children: 3 current occupational status: retired Service: No Tobacco: Smoking Status: Former smoker Alcohol: alcohol intake: current Alcohol type: wine alcohol intake frequency: a few times a week Substance Use: substance use type: does not use Dietary Habits: caffeine: Yes Personal Safety: victim of physical abuse: No victim of emotional abuse: No Review Of Systems (GEN) - Review of Systems Generalized/Overall Review: Absent: Fever Respiratory: Present: Cough, Shortness of Breath Cardiac: Absent: Chest Pain Abdominal: Absent: Abdominal Pain Misc: All systems neg except as marked Immunizations: IMMUNIZATION HX Immunizations Up to Date Yes History of Influenza Vaccine Yes Hx Pneumococcal Vaccination Yes Allergies/Adverse Reactions: Allergies Allergy/AdvReac Type Severity Reaction Status Date / Time shellfish derived Allergy Intermediate eyes Verified 03/11/20 21:42 swelling, peeled Home Medications: HOME MEDICATIONS Umeclidinium [place] [Incruse Ellipta] 62.5 mcg INHALATION DAILY 11/10/16 [Last Taken Unknown] Naproxen Sodium [Aleve] 220 mg PO BID PRN 03/20/18 [Last Taken Unknown] Fluticasone/Vilanterol [Breo Ellipta 200-25 Mcg INH] 1 ea INHALATION DAILY 08/21/18 [Last Taken Unknown] guaifenesin 1,200 mg tablet, extended release 12 hr 1,200 mg PO BID 01/07/19 [Last Taken Unknown] Acetaminophen [Tylenol] 500 mg PO BID PRN 09/29/19 [Last Taken Unknown] tramadol 50 mg tablet 50 mg PO Q6H PRN #120 tab 10/18/19 [Last Taken Unknown] atorvastatin 20 mg tablet 20 mg PO HS #30 tab 11/21/19 [Last Taken Unknown] levothyroxine 88 mcg tablet 88 mcg PO DAILY #30 tab 11/21/19 [Last Taken Unknown] montelukast 10 mg tablet 10 mg PO 1700 #30 tab 11/21/19 [Last Taken Unknown] quetiapine 25 mg tablet 25 mg PO HS #30 tab 11/21/19 [Last Taken Unknown] spironolactone 25 mg tablet 25 mg PO BID #60 tab 11/21/19 [Last Taken Unknown] nystatin 100,000 unit/gram topical powder 1 applic TP BID #60 g 01/17/20 [Last Taken Unknown] diazepam 10 mg tablet 10 mg PO HS #60 tab 02/14/20 [Last Taken Unknown] Diazepam 5 mg PO TID PRN 03/12/20 [Last Taken Unknown] Metoprolol Succinate 25 mg PO HS 03/12/20 [Last Taken Unknown] Sertraline HCl [Zoloft] 100 mg PO BID 03/12/20 [Last Taken Unknown] Sodium Chloride 7% 1 vial INHALATION QID 03/12/20 [Last Taken Unknown] Exam - Exam Vital Signs: Vital Signs - Last Taken Temp 36.3 C 03/12/20 09:57 Pulse 65 03/12/20 10:22 Resp 17 03/12/20 09:57 BP 141/68 03/12/20 09:57 Pulse Ox 92 L 03/12/20 10:22 Constitutional: Present: Alert, Oriented x3, Cooperative, Well developed, Well nourished, No distress, Elderly, Obese ENT Exam: Present: hearing grossly normal Eye Exam: bilateral eye: normal inspection Neck: Present: lymphadenopathy (R), lymphadenopathy (L) Back Exam: Present: normal inspection, no CVA tenderness, no vertebral tenderness Respiratory: Present: lungs clear, no respiratory distress, no accessory muscle use, No wheezing. Absent: crackles, rhonchi Cardiovascular/Chest: Present: normal peripheral pulses, regular rate, rhythm, no edema, no murmur Peripheral Pulses: dorsalis-pedis (R): 1+, dorsalis-pedis (L): 1+ Abdomen: Present: Normal bowel sounds, soft, nontender Extremity: Present: no pedal edema Skin Exam: Present: normal color, warm/dry Neurologic: Present: alert, normal mood/affect Appearance: Present: appropriate appearance Eye contact: Present: cooperative Thoughts: Present: normal mood /affect Diagnostic Studies: Abnormal Lab Results 03/11/20 03/11/20 03/11/20 Range/Units 08:30 08:30 08:30 MCH 31.3 H (27-31) pg MCHC 31.5 L (32-36) g/dl RDW 14.1 H (11.5-14.0) % Immature Gran # (Auto) 0.04 H (0.000-0.0310) K/mm3 Neutrophils % 84.5 H (42-75.0) % Lymphocytes % 7.7 L (20-51) % Neutrophils # 8.8 H (1.3-6.0) K/mm3 Lymphocytes # 0.80 L (1.5-3.5) k/mm3 D-Dimer 1.13 H (0.19-0.49) ug/mL pCO2 (32.0-45.0) mmHg pO2 (83.0-108.0) mmHg HCO3 (21.0-28.0) mmol/L Total CO2 (19.0-24.0) mmol/L Base Excess (-2.0-3.0) mmol/L ABG pH (7.35-7.45) ABG O2 Sat (Measured) (94.0-98.0) % Carbon Dioxide 40.1 H (24-32.6) mmol/L Anion Gap 4.4 L (6.8-13.8) mmol/L Random Glucose 126 H (70-110) mg/dL Alkaline Phosphatase 189 H (50-170) U/L C-Reactive Prot, Quant (0.0-0.9) mg/dL B-Natriuretic Peptide 339 H (5-325) pg/mL Total Protein 8.6 H (6.2-8.2) gm/dL Urine Protein (NEGATIVE) mg/dL Urine Blood (NEGATIVE) /ul 03/11/20 03/11/20 03/11/20 Range/Units 18:10 18:45 19:05 MCH (27-31) pg MCHC (32-36) g/dl RDW (11.5-14.0) % Immature Gran # (Auto) (0.000-0.0310) K/mm3 Neutrophils % (42-75.0) % Lymphocytes % (20-51) % Neutrophils # (1.3-6.0) K/mm3 Lymphocytes # (1.5-3.5) k/mm3 D-Dimer (0.19-0.49) ug/mL pCO2 69.0 H 71.0 H* (32.0-45.0) mmHg pO2 64.0 L 62.4 L (83.0-108.0) mmHg HCO3 34.0 H 37.1 H (21.0-28.0) mmol/L Total CO2 36.1 H 39.3 H (19.0-24.0) mmol/L Base Excess 5.5 H 8.6 H (-2.0-3.0) mmol/L ABG pH 7.31 L 7.34 L (7.35-7.45) ABG O2 Sat (Measured) 89.7 L 89.5 L (94.0-98.0) % Carbon Dioxide (24-32.6) mmol/L Anion Gap (6.8-13.8) mmol/L Random Glucose (70-110) mg/dL Alkaline Phosphatase (50-170) U/L C-Reactive Prot, Quant 2.5 H (0.0-0.9) mg/dL B-Natriuretic Peptide (5-325) pg/mL Total Protein (6.2-8.2) gm/dL Urine Protein (NEGATIVE) mg/dL Urine Blood (NEGATIVE) /ul 03/11/20 03/11/20 Range/Units 21:17 Unknown MCH (27-31) pg MCHC (32-36) g/dl RDW (11.5-14.0) % Immature Gran # (Auto) (0.000-0.0310) K/mm3 Neutrophils % (42-75.0) % Lymphocytes % (20-51) % Neutrophils # (1.3-6.0) K/mm3 Lymphocytes # (1.5-3.5) k/mm3 D-Dimer (0.19-0.49) ug/mL pCO2 54.1 H (32.0-45.0) mmHg pO2 51.1 L (83.0-108.0) mmHg HCO3 34.1 H (21.0-28.0) mmol/L Total CO2 35.7 H (19.0-24.0) mmol/L Base Excess 8.1 H (-2.0-3.0) mmol/L ABG pH (7.35-7.45) ABG O2 Sat (Measured) 86.1 L (94.0-98.0) % Carbon Dioxide (24-32.6) mmol/L Anion Gap (6.8-13.8) mmol/L Random Glucose (70-110) mg/dL Alkaline Phosphatase (50-170) U/L C-Reactive Prot, Quant (0.0-0.9) mg/dL B-Natriuretic Peptide (5-325) pg/mL Total Protein (6.2-8.2) gm/dL Urine Protein 15 H (NEGATIVE) mg/dL Urine Blood 5 H (NEGATIVE) /ul Microbiology 03/11/20 Unknown Urine Culture - Preliminary Urine,Catheterized No Growth Laboratory Results WBC 10.4 K/mm3 (4.0-10.5) 03/11/20 08:30 RBC 4.22 M/mm3 (4.2-5.4) 03/11/20 08:30 Hgb 13.2 gm/dL (12.5-16.0) 03/11/20 08:30 Hct 41.9 % (37.0-47.0) 03/11/20 08:30 MCV 99.3 fl (78-100) 03/11/20 08:30 MCH 31.3 pg (27-31) H 03/11/20 08:30 MCHC 31.5 g/dl (32-36) L 03/11/20 08:30 RDW 14.1 % (11.5-14.0) H 03/11/20 08:30 Plt Count 162 K/mm3 (150-450) 03/11/20 08:30 MPV 10.1 fl (8-12.5) 03/11/20 08:30 Immature Gran % (Auto) 0.40 % (0.001-0.429) 03/11/20 08:30 Immature Gran # (Auto) 0.04 K/mm3 (0.000-0.0310) H 03/11/20 08:30 Neutrophils % 84.5 % (42-75.0) H 03/11/20 08:30 Lymphocytes % 7.7 % (20-51) L 03/11/20 08:30 Monocytes % 5.0 % (0.0-9) 03/11/20 08:30 Eosinophils % 2.0 % (0.0-3.0) 03/11/20 08:30 Basophils % 0.4 % (0.0-1.0) 03/11/20 08:30 Nucleated RBC % 0.0 k/mm3 (0-1) 03/11/20 08:30 Neutrophils # 8.8 K/mm3 (1.3-6.0) H 03/11/20 08:30 Lymphocytes # 0.80 k/mm3 (1.5-3.5) L 03/11/20 08:30 Monocytes # 0.5 k/mm3 (0.0-1.0) 03/11/20 08:30 Eosinophils # 0.2 k/mm3 (0.0-0.7) 03/11/20 08:30 Absolute Basophils 0.0 k/mm3 (0.0-0.1) 03/11/20 08:30 D-Dimer 1.13 ug/mL (0.19-0.49) H 03/11/20 08:30 pCO2 54.1 mmHg (32.0-45.0) H 03/11/20 21:17 pO2 51.1 mmHg (83.0-108.0) L 03/11/20 21:17 HCO3 34.1 mmol/L (21.0-28.0) H 03/11/20 21:17 Total CO2 35.7 mmol/L (19.0-24.0) H 03/11/20 21:17 Base Excess 8.1 mmol/L (-2.0-3.0) H 03/11/20 21:17 ABG pH 7.42 (7.35-7.45) 03/11/20 21:17 ABG O2 Sat (Measured) 86.1 % (94.0-98.0) L 03/11/20 21:17 Sodium 140 mmol/L (132-142) 03/11/20 08:30 Plasma Sodium 140 mmol/L (130-142) 03/11/20 08:30 Potassium 4.5 mmol/L (3.4-4.6) D 03/11/20 08:30 Chloride 100 mmol/L (97-106) 03/11/20 08:30 Carbon Dioxide 40.1 mmol/L (24-32.6) H 03/11/20 08:30 Anion Gap 4.4 mmol/L (6.8-13.8) L 03/11/20 08:30 BUN 10 mg/dL (3-23) 03/11/20 08:30 Creatinine 0.87 mg/dL (0.4-1.4) 03/11/20 08:30 Est GFR (Non-Af Amer) 68 mL/min (60-130) 03/11/20 08:30 BUN/Creatinine Ratio 11.5 (9.0-21.6) 03/11/20 08:30 Random Glucose 126 mg/dL (70-110) H 03/11/20 08:30 Lactic Acid, Venous 1.4 mmol/L (0.4-2.0) 03/11/20 08:30 Calcium 9.6 mg/dL (7.9-10.9) 03/11/20 08:30 Calcium Adj for Albumin 9.1 mg/dL (8.4-10.2) 03/11/20 08:30 Total Bilirubin 0.5 mg/dL (0.0-1.1) 03/11/20 08:30 AST 25 U/L (0-48) 03/11/20 08:30 ALT 28 U/L (19-67) 03/11/20 08:30 Alkaline Phosphatase 189 U/L (50-170) H 03/11/20 08:30 Troponin I Less than 0.017 ng/mL (0.00-0.10) 03/11/20 08:30 C-Reactive Prot, Quant 2.5 mg/dL (0.0-0.9) H 03/11/20 18:45 B-Natriuretic Peptide 339 pg/mL (5-325) H 03/11/20 08:30 Total Protein 8.6 gm/dL (6.2-8.2) H 03/11/20 08:30 Albumin 4.2 gm/dl (3.4-5.0) 03/11/20 08:30 Urine Color Yellow 03/11/20 Unknown Urine Appearance Clear (CLEAR) 03/11/20 Unknown Urine pH 7.0 pH (5.0-7.0) 03/11/20 Unknown Ur Specific [place] 1.020 SP.GR. (1.005-1.010) 03/11/20 Unknown Urine Protein 15 mg/dL (NEGATIVE) H 03/11/20 Unknown Urine Glucose (UA) Negative mg/dL (NEGATIVE) 03/11/20 Unknown Urine Ketones Negative mg/dL (NEGATIVE) 03/11/20 Unknown Urine Blood 5 /ul (NEGATIVE) H 03/11/20 Unknown Urine Nitrate Negative (NEGATIVE) 03/11/20 Unknown Urine Bilirubin Normal mg/dl (NEGATIVE) 03/11/20 Unknown Prot Sulfosalicylic Acd 1+ mg/dL (0) 03/11/20 Unknown Urine Urobilinogen Normal EU/dl (NORMAL) 03/11/20 Unknown Ur Leukocyte Esterase Negative /ul (NEGATIVE) 03/11/20 Unknown Urine RBC None seen /hpf (0-5) 03/11/20 Unknown Urine WBC None seen /hpf (0-5) 03/11/20 Unknown Ur Epithelial Cells 0-5 /hpf (0-5) 03/11/20 Unknown Urine Bacteria None seen (NONE) 03/11/20 Unknown Urine Culture Comments Culture to follow 03/11/20 Unknown Chlamy pneumoniae PCR Not detected (NotDetected) 03/11/20 08:30 Adenovirus (PCR) Not detected (NotDetected) 03/11/20 08:30 B. pertussis DNA (PCR) Not detected (NotDetected) 03/11/20 08:30 Coronavirus OC43 (PCR) Not detected (NotDetected) 03/11/20 08:30 Coronavirus HKU1 (PCR) Not detected (NotDetected) 03/11/20 08:30 Coronavirus 229E (PCR) Not detected (NotDetected) 03/11/20 08:30 Coronavirus NL63 (PCR) Not detected (NotDetected) 03/11/20 08:30 Human Metapneumovir PCR Not detected (NotDetected) 03/11/20 08:30 Influenza A (H1) PCR Not detected (NotDetected) 03/11/20 08:30 Influenza A (H1N1) PCR Not detected (NotDetected) 03/11/20 08:30 Influenza A (H3) PCR Not detected (NotDetected) 03/11/20 08:30 Influenza B (RT-PCR) Not detected (NotDetected) 03/11/20 08:30 M. pneumoniae (PCR) Not detected (NotDetected) 03/11/20 08:30 Parainfluenza 1 (PCR) Not detected (NotDetected) 03/11/20 08:30 Parainfluenza 2 (PCR) Not detected (NotDetected) 03/11/20 08:30 Parainfluenza 3 (PCR) Not detected (NotDetected) 03/11/20 08:30 Parainfluenza 4 (PCR) Not detected (NotDetected) 03/11/20 08:30 RSV (PCR) Not detected (NotDetected) 03/11/20 08:30 Rhinovirus (PCR) Not detected (NotDetected) 03/11/20 08:30 Assessment/Plan - Narrative Narrative: 69-year-old female with a past medical history of moderate persistent asthma, COPD oxygen dependent with 2 to 3 L during the day and on trilogy at night, depression, hypothyroidism, constipation, obstructive sleep apnea, psoriasis, respiratory failure with hypoxia presents from home with complaints of shortness of breath for the past 2 to 3 days. In the emergency department she was found to be hypoxic with oxygen level down to 89. Her blood gas showed acidosis respiratory acidosis. She was started on BiPAP. Chest x-ray showed small left costophrenic angle infiltrate, CT angios was negative for pulmonary embolism, positive for borderline lymph nodes in the mediastinum and hilum, persistent but improved bilateral patchy infiltrates, follow-up CT chest in 3 months is recommended to evaluate for resolution. She was diagnosed with pneumonia and started on ceftriaxone. Plan #1 continue ceftriaxone 1 g daily #2 resume home medications for comorbidities #3 Taper off of the BiPAP and attempt to taper down to her home regimen of 2 to 3 L of oxygen via nasal cannula during the day and trilogy at night. #4 repeat ABG as needed #5 CBC and CMP in the morning #6 VTE prophylaxis - Assessment/Plan (1) Pneumonia Problem: Acute Qualifiers: Pneumonia type: due to unspecified organism Laterality: bilateral Lung location: lower lobe of lung Qualified Code(s): J18.9 - Pneumonia, unspecified organism (2) Oxygen dependent Problem: Chronic (3) Anxiety Problem: Chronic (4) Depression Problem: Chronic Qualifiers: (5) COPD (chronic obstructive pulmonary disease) Problem: Chronic Qualifiers: COPD type: COPD with acute exacerbation Qualified Code(s): J44.1 - Chronic obstructive pulmonary disease with (acute) exacerbation (6) History of hypothyroidism Problem: Chronic (7) Hypertension Problem: Chronic Qualifiers: Hypertension type: essential hypertension Qualified Code(s): I10 - Essential (primary) hypertension
[2020-03-12] MEDS: ENOXAPARIN SODIUM 40 MG/0.4 ML SYRG SC SCH (14:04)
[2020-03-12] MEDS: MONTELUKAST SODIUM 10 MG TABLET PO SCH (17:48)
[2020-03-12] MEDS: ROSUVASTATIN CALCIUM 10 MG TABLET PO SCH (20:41)
[2020-03-12] MEDS: QUEtiapine FUMARATE 25 MG TABLET PO SCH (20:42)
[2020-03-12] MEDS ORDERED: METOPROLOL SUCCINATE 25 MG TABLET.SA PO SCH (21:00)
[2020-03-13 06:55] LABS: Hemoglobin 11.9 gm/dL (12.5-16.0); Mean Cell Volume 97.9 fl (78-100); Mean Corpuscular Hemoglobin 30.7 pg (27-31); Mean Corpuscular Hgb Conc 31.3 g/dl (32-36); Mean Platelet Volume 10.1 fl (8-12.5); Neutrophil # 5.4 K/mm3 (1.3-6.0); Platelet Count 165 K/mm3 (150-450); Red Blood Count 3.88 M/mm3 (4.2-5.4); Red Cell Distribution Width 14.3 % (11.5-14.0); White Blood Count 7.4 K/mm3 (4.0-10.5)
[2020-03-13 07:09] LABS: Albumin * 3.8 gm/dl (3.4-5.0); Anion Gap 4.1 mmol/L (6.8-13.8); BUN/Creatinine Ratio 14.6 (9.0-21.6); Bilirubin, Total 0.3 mg/dL (0.0-1.1); Ca. Corrected For Albumin 8.9 mg/dL (8.4-10.2); Calcium * 9.1 mg/dL (7.9-10.9); Potassium 3.1 mmol/L (3.4-4.6); Total Protein 7.9 gm/dL (6.2-8.2)
[2020-03-13] MEDS: LEVOTHYROXINE SODIUM 88 MCG TABLET PO SCH (07:14)
[2020-03-13] MEDS: FLUTICASONE PROPION/SALMETEROL 14 PUFF DISK.W.DEV IH SCH ×3 (08:20→21:14)
[2020-03-13] MEDS: TIOTROPIUM BROMIDE 5 CAP INHALER IH SCH (08:21)
[2020-03-13] MEDS: SPIRONOLACTONE 25 MG TABLET PO SCH ×3 (08:21→21:14)
[2020-03-13] MEDS: NYSTATIN 15 APPL BTL TP SCH ×2 (08:21→21:14)
[2020-03-13] MEDS: SERTRALINE HCL 100 MG TABLET PO SCH ×3 (08:36→21:14)
[2020-03-13] MEDS ORDERED: POTASSIUM BICARBONATE/CIT AC 25 MEQ TABLET.EFF PO ONE (09:24)
[2020-03-13] MEDS ORDERED: POTASSIUM BICARBONATE/CIT AC 25 MEQ TABLET.EFF ONE (11:20)
[2020-03-13] MEDS: ENOXAPARIN SODIUM 40 MG/0.4 ML SYRG SC SCH (11:33)
--- NOTE | 2020-03-13 16:50 | PN ---
Subjective - Date and Time Seen Date: 03/13/20 Time: 10:53 Subjective Narrative: She has a nonproductive cough, shortness of breath is at baseline, denies chest pain or abdominal pain. Objective - Review of Systems Generalized/Overall Review: Denies: Fever Respiratory: Reports: Cough, Shortness of Breath Cardiac: Denies: Chest Pain Abdominal: Denies: Abdominal Pain Misc: All systems neg except as marked - Vitals Vitals: Last Vital Signs Temp 37.1 C 03/13/20 14:56 Pulse 64 03/13/20 14:56 Resp 28 H 03/13/20 14:56 BP 131/65 03/13/20 14:56 Pulse Ox 92 L 03/13/20 14:56 - Abnormal Lab Findings Abnormal Lab Findings: Abnormal Lab Results 03/13/20 03/13/20 Range/Units 06:45 06:45 RBC 3.88 L (4.2-5.4) M/mm3 Hgb 11.9 L (12.5-16.0) gm/dL MCHC 31.3 L (32-36) g/dl RDW 14.3 H (11.5-14.0) % Immature Gran % (Auto) 0.50 H (0.001-0.429) % Immature Gran # (Auto) 0.04 H (0.000-0.0310) K/mm3 Lymphocytes % 19.0 L (20-51) % Lymphocytes # 1.40 L (1.5-3.5) k/mm3 Potassium 3.1 L D (3.4-4.6) mmol/L Carbon Dioxide 41.0 H (24-32.6) mmol/L Anion Gap 4.1 L (6.8-13.8) mmol/L - Exam Constitutional: Present: Alert, Cooperative, Well developed, Well nourished, No distress ENT Exam: Present: hearing grossly normal Neck: Present: non-tender. Absent: lymphadenopathy (R), lymphadenopathy (L) Respiratory: Present: lungs clear, no respiratory distress, no accessory muscle use, No wheezing. Absent: crackles, rhonchi Cardiovascular/Chest: Present: normal peripheral pulses, regular rate, rhythm, no edema, no murmur Abdomen: Present: Normal bowel sounds, soft, nontender Extremity: Present: no pedal edema Skin Exam: Present: normal color, warm/dry Neurologic: Present: alert, normal mood/affect Appearance: Present: appropriate appearance, appropriate insight Eye contact: Present: cooperative Thoughts: Present: normal thought pattern, normal mood /affect Cauti Physician Documentation - Urinary Catheter Management Urethral ([place]) Urethral Indwelling: No Date of Insertion: 03/11/20 Time of Insertion: 19:15 Date of Removal: 03/13/20 Time of Removal: 11:30 Assessment/Plan Plan Narrative: 69-year-old female with a past medical history of moderate persistent asthma, COPD oxygen dependent with 2 to 3 L during the day and on trilogy at night, depression, hypothyroidism, constipation, obstructive sleep apnea, psoriasis, respiratory failure with hypoxia presents from home with complaints of shortness of breath for the past 2 to 3 days. In the emergency department she was found to be hypoxic with oxygen level down to 89. Her blood gas showed acidosis respiratory acidosis. She was started on BiPAP. Chest x-ray showed small left costophrenic angle infiltrate, CT angios was negative for pulmonary embolism, positive for borderline lymph nodes in the mediastinum and hilum, persistent but improved bilateral patchy infiltrates, follow-up CT chest in 3 months is recommended to evaluate for resolution. She was diagnosed with pneumonia and started on ceftriaxone. Her mentation has improved and is near her baseline. She is on her baseline oxygen and baseline BiPAP settings at night. Plan #1 continue ceftriaxone 1 g daily day 2 #2 Continue home medications for comorbidities #3 Continue with home regimen of 2 to 3 L of oxygen via nasal cannula during the day and BiPAP at night. #4 repeat ABG as needed #5 CBC and CMP in the morning #6 VTE prophylaxis - Problems/Diagnosis (1) Acute on chronic respiratory failure with hypoxia and hypercapnia Problem: Acute (2) Pneumonia Problem: Acute Qualifiers: Pneumonia type: due to unspecified organism Laterality: bilateral Lung location: lower lobe of lung Qualified Code(s): J18.9 - Pneumonia, unspecified organism (3) Oxygen dependent Problem: Chronic (4) Anxiety Problem: Chronic (5) Depression Problem: Chronic Qualifiers: (6) COPD (chronic obstructive pulmonary disease) Problem: Chronic Qualifiers: COPD type: COPD with acute exacerbation Qualified Code(s): J44.1 - Chronic obstructive pulmonary disease with (acute) exacerbation (7) History of hypothyroidism Problem: Chronic (8) Hypertension Problem: Chronic Qualifiers: Hypertension type: essential hypertension Qualified Code(s): I10 - Essential (primary) hypertension
[2020-03-13] MEDS: MONTELUKAST SODIUM 10 MG TABLET PO SCH (17:45)
[2020-03-13] MEDS: ROSUVASTATIN CALCIUM 10 MG TABLET PO SCH ×2 (19:39→21:14)
[2020-03-13] MEDS: QUEtiapine FUMARATE 25 MG TABLET PO SCH ×2 (19:40→21:14)
[2020-03-14] MEDS: LEVOTHYROXINE SODIUM 88 MCG TABLET PO SCH (06:40)
[2020-03-14 07:06] LABS: Hematocrit 37.3 % (37.0-47.0); Hemoglobin 12.1 gm/dL (12.5-16.0); Mean Cell Volume 96.9 fl (78-100); Mean Corpuscular Hemoglobin 31.4 pg (27-31); Mean Corpuscular Hgb Conc 32.4 g/dl (32-36); Mean Platelet Volume 10.1 fl (8-12.5); Neutrophil # 4.1 K/mm3 (1.3-6.0); Neutrophil % 67.7 % (42-75.0); Platelet Count 166 K/mm3 (150-450); Red Blood Count 3.85 M/mm3 (4.2-5.4); Red Cell Distribution Width 14.3 % (11.5-14.0)
[2020-03-14 07:17] LABS: Albumin * 3.5 gm/dl (3.4-5.0); Anion Gap 7.4 mmol/L (6.8-13.8); BUN/Creatinine Ratio 15.5 (9.0-21.6); Bilirubin, Total 0.4 mg/dL (0.0-1.1); Ca. Corrected For Albumin 9.1 mg/dL (8.4-10.2); Potassium 3.4 mmol/L (3.4-4.6); Total Protein 7.5 gm/dL (6.2-8.2)
[2020-03-14] MEDS: TIOTROPIUM BROMIDE 5 CAP INHALER IH SCH (08:55)
[2020-03-14] MEDS: NYSTATIN 15 APPL BTL TP SCH (08:55)
[2020-03-14] MEDS: SPIRONOLACTONE 25 MG TABLET PO SCH (08:55)
[2020-03-14] MEDS: FLUTICASONE PROPION/SALMETEROL 14 PUFF DISK.W.DEV IH SCH (08:55)
[2020-03-14] MEDS: SERTRALINE HCL 100 MG TABLET PO SCH (08:56)
--- NOTE | 2020-03-14 09:19 | DS ---
(1) Acute on chronic respiratory failure with hypoxia and hypercapnia Problem: Acute (2) Pneumonia Problem: Acute Qualifiers: Pneumonia type: due to group B Streptococcus Laterality: left Lung location: lower lobe of lung Qualified Code(s): J15.3 - Pneumonia due to streptococcus, group B (3) Oxygen dependent Problem: Chronic (4) Anxiety Problem: Chronic (5) Depression Problem: Chronic Qualifiers: (6) COPD (chronic obstructive pulmonary disease) Problem: Chronic Qualifiers: COPD type: COPD with acute exacerbation Qualified Code(s): J44.1 - Chronic obstructive pulmonary disease with (acute) exacerbation (7) History of hypothyroidism Problem: Chronic (8) Hypertension Problem: Chronic Qualifiers: Hypertension type: essential hypertension Qualified Code(s): I10 - Essential (primary) hypertension Hospital Course: 69-year-old female with a past medical history of moderate persistent asthma, COPD oxygen dependent with 2 to 3 L during the day and on trilogy at night, depression, hypothyroidism, constipation, obstructive sleep apnea, psoriasis, respiratory failure with hypoxia presents from home with complaints of shortness of breath for the past 2 to 3 days. In the emergency department she was found to be hypoxic with oxygen level down to 89. Her blood gas showed acidosis respiratory acidosis. She was started on BiPAP. Chest x-ray showed small left costophrenic angle infiltrate, CT angios was negative for pulmonary embolism, positive for borderline lymph nodes in the mediastinum and hilum, persistent but improved bilateral patchy infiltrates, follow-up CT chest in 3 months is recommended to evaluate for resolution. She was diagnosed with pneumonia and started on ceftriaxone. Her mentation has improved and is at her baseline. She is on her baseline oxyge n and baseline BiPAP settings at night. She will follow up with me in the office in 1 week of discharge. She will continue antibiotics with cefdinir 300mg BID for 5 more days. She is stable for discharge home today. Procedures Performed: none Results and Findings: Pending Mircobiology Results 03/11/20 18:42 Blood Blood Culture - Preliminary NO GROWTH AFTER 48 HOURS 03/11/20 08:30 Blood Blood Culture - Preliminary NO GROWTH AFTER 48 HOURS Lab Pending Results 03/11/20 08:30: WBC 10.4, RBC 4.22, Hgb 13.2, Hct 41.9, MCV 99.3, MCH 31.3 H, MCHC 31.5 L, RDW 14.1 H, Plt Count 162, MPV 10.1, Immature Gran % (Auto) 0.40, Immature Gran # (Auto) 0.04 H, Neutrophils % 84.5 H, Lymphocytes % 7.7 L, Monocytes % 5.0, Eosinophils % 2.0, Basophils % 0.4, Nucleated RBC % 0.0, Neutrophils # 8.8 H, Lymphocytes # 0.80 L, Monocytes # 0.5, Eosinophils # 0.2, Absolute Basophils 0.0 03/11/20 08:30: Sodium 140, Plasma Sodium 140, Potassium 4.5 D, Chloride 100, Carbon Dioxide 40.1 H, Anion Gap 4.4 L, BUN 10, Creatinine 0.87, Est GFR (Non-Af Amer) 68, BUN/Creatinine Ratio 11.5, Random Glucose 126 H, Calcium 9.6, Calcium Adj for Albumin 9.1, Total Bilirubin 0.5, AST 25, ALT 28, Alkaline Phosphatase 189 H, Troponin I Less than 0.017, B-Natriuretic Peptide 339 H, Total Protein 8.6 H, Albumin 4.2 03/11/20 08:30: D-Dimer 1.13 H 03/11/20 08:30: Lactic Acid, Venous 1.4 03/11/20 08:30: Chlamy pneumoniae PCR Not detected, Adenovirus (PCR) Not detected, B. pertussis DNA (PCR) Not detected, Coronavirus OC43 (PCR) Not detected, Coronavirus HKU1 (PCR) Not detected, Coronavirus 229E (PCR) Not detected, Coronavirus NL63 (PCR) Not detected, Human Metapneumovir PCR Not detected, Influenza A (H1) PCR Not detected, Influenza A (H1N1) PCR Not dete cted, Influenza A (H3) PCR Not detected, Influenza B (RT-PCR) Not detected, M. pneumoniae (PCR) Not detected, Parainfluenza 1 (PCR) Not detected, Parainfluenza 2 (PCR) Not detected, Parainfluenza 3 (PCR) Not detected, Parainfluenza 4 (PCR) Not detected, RSV (PCR) Not detected, Rhinovirus (PCR) Not detected 03/11/20 18:10: pCO2 69.0 H, pO2 64.0 L, HCO3 34.0 H, Total CO2 36.1 H, Base Excess 5.5 H, ABG pH 7.31 L, ABG O2 Sat (Measured) 89.7 L 03/11/20 18:30: SARS-CoV-2 (PCR) Not detected 03/11/20 18:45: C-Reactive Prot, Quant 2.5 H 03/11/20 19:05: pCO2 71.0 H*, pO2 62.4 L, HCO3 37.1 H, Total CO2 39.3 H, Base Excess 8.6 H, ABG pH 7.34 L, ABG O2 Sat (Measured) 89.5 L 03/11/20 21:17: pCO2 54.1 H, pO2 51.1 L, HCO3 34.1 H, Total CO2 35.7 H, Base Excess 8.1 H, ABG pH 7.42, ABG O2 Sat (Measured) 86.1 L 03/11/20 : Urine Color Yellow, Urine Appearance Clear, Urine pH 7.0, Ur Specific [place] 1.020, Urine Protein 15 H, Urine Glucose (UA) Negative, Urine Ketones Negative, Urine Blood 5 H, Urine Nitrate Negative, Urine Bilirubin Normal, Prot Sulfosalicylic Acd 1+, Urine Urobilinogen Normal, Ur Leukocyte Esterase Negative, Urine RBC None seen, Urine WBC None seen, Ur Epithelial Cells 0-5, Urine Bacteria None seen, Urine Culture Comments Culture to follow 03/13/20 06:45: WBC 7.4 D, RBC 3.88 L, Hgb 11.9 L, Hct 38.0, MCV 97.9, MCH 30.7, MCHC 31.3 L, RDW 14.3 H, Plt Count 165, MPV 10.1, Immature Gran % (Auto) 0.50 H, Immature Gran # (Auto) 0.04 H, Neutrophils % 73.0, Lymphocytes % 19.0 L, Monocytes % 5.7, Eosinophils % 1.5, Basophils % 0.3, Nucleated RBC % 0.0, Neutrophils # 5.4, Lymphocytes # 1.40 L, Monocytes # 0.4, Eosinophils # 0.1, Absolute Basophils 0.0 03/13/20 06:45: Sodium 140, Plasma Sodium 140, Potassium 3.1 L D, Chloride 98, Carbon Dioxide 41.0 H, Anion Gap 4.1 L, BUN 12, Creatinine 0.82, Est GFR (Non-Af Amer) 73, BUN/Creatinine Ratio 14.6, Random Glucose 100, Calcium 9.1, Calcium Adj for Albumin 8.9, Total Bilirubin 0.3, AST 17, ALT 23, Alkaline Phosphatase 135, Total Protein 7.9, Albumin 3.8 03/14/20 06:56: WBC 6.0, RBC 3.85 L, Hgb 12.1 L, Hct 37.3, MCV 96.9, MCH 31.4 H, MCHC 32.4, RDW 14.3 H, Plt Count 166, MPV 10.1, Immature Gran % (Auto) 1.30 H, Immature Gran # (Auto) 0.08 H, Neutrophils % 67.7, Lymphocytes % 22.0, Monocytes % 6.2, Eosinophils % 2.5, Basophils % 0.3, Nucleated RBC % 0.0, Neutrophils # 4.1, Lymphocytes # 1.32 L, Monocytes # 0.4, Eosinophils # 0.2, Absolute Basophils 0.0 03/14/20 06:56: Sodium 138, Plasma Sodium 138, Potassium 3.4, Chloride 99, Carbon Dioxide 35.0 H, Anion Gap 7.4, BUN 11, Creatinine 0.71, Est GFR (Non-Af Amer) 86, BUN/Creatinine Ratio 15.5, Random Glucose 98, Calcium 9.0, Calcium Adj for Albumin 9.1, Total Bilirubin 0.4, AST 16, ALT 24, Alkaline Phosphatase 129, Total Protein 7.5, Albumin 3.5 Discharge Location: Home Disposition: Home self-care Condition: Stable Discharge Activity: Activity as tolerated Discharge Diet: General/regular food Prescriptions (Any new or edited meds): Cefdinir 300 mg PO BID 5 Days #10 cap Transmission Status: Pending to [facility] Complete Home Medications List: Complete Home Medication List: Umeclidinium [place] [Incruse Ellipta] 62.5 mcg INHALATION DAILY 11/10/16 Naproxen Sodium [Aleve] 220 mg PO BID PRN 03/20/18 Fluticasone/Vilanterol [Breo Ellipta 200-25 Mcg INH] 1 ea INHALATION DAILY 08/21/18 guaifenesin 1,200 mg tablet, extended release 12 hr 1,200 mg PO BID 01/07/19 Acetaminophen [Tylenol] 500 mg PO BID PRN 09/29/19 tramadol 50 mg tablet 50 mg PO Q6H PRN #120 tab 10/18/19 atorvastatin 20 mg tablet 20 mg PO HS #30 tab 11/21/19 levothyroxine 88 mcg tablet 88 mcg PO DAILY #30 tab 11/21/19 montelukast 10 mg tablet 10 mg PO 1700 #30 tab 11/21/19 quetiapine 25 mg tablet 25 mg PO HS #30 tab 11/21/19 spironolactone 25 mg tablet 25 mg PO BID #60 tab 11/21/19 nystatin 100,000 unit/gram topical powder 1 applic TP BID #60 g 01/17/20 diazepam 10 mg tablet 10 mg PO HS #60 tab 02/14/20 Diazepam 5 mg PO TID PRN 03/12/20 Metoprolol Succinate 25 mg PO HS 03/12/20 Sertraline HCl [Zoloft] 100 mg PO BID 03/12/20 Sodium Chloride 7% 1 vial INHALATION QID 03/12/20 Cefdinir 300 mg PO BID 5 Days #10 cap 03/14/20 Forms: Patient Portal Registration
[2020-03-14 10:57] VITALS: BP 143/76
== END 2020-03-14 10:15 | disposition home or self-care (01) | DRG 193 ==
LOC: ER 17:55 → MS 22:34
PROVIDERS: ADMIT Family Medicine; ATTEND Internal Medicine
DX: I10 Essential (primary) hypertension; E87.6 Hypokalemia; Z87.891 Personal history of nicotine dependence; J15.3 Pneumonia due to streptococcus, group B; J44.1 Chronic obstructive pulmonary disease with (acute) exacerbation; J44.0 Chronic obstructive pulmonary disease with (acute) lower respiratory infection; E03.9 Hypothyroidism, unspecified; J45.40 Moderate persistent asthma, uncomplicated; J96.21 Acute and chronic respiratory failure with hypoxia; J96.22 Acute and chronic respiratory failure with hypercapnia; F41.8 Other specified anxiety disorders
CPT/HCPCS: 36415; 36600; 71010; 71045; 71260; 71275; 80053; 81001; 82803; 83519; 83605; 83880; 84484; 85025; 85379; 86140; 87040; 87086; 87633; 93005; 94640; 94660; 94664; 94760; 96365; 96375; 99284; 99285; U0001

== ENCOUNTER 2020-04-16 10:07 | Inpatient (IN) ==
[2020-04-16] MEDS ORDERED: ALBUTEROL SULFATE 2.5 MG/0.5 ML VIAL.NEB IH ONE (10:11)
[2020-04-16] MEDS ORDERED: METHYLPREDNISOLONE SOD SUCC/PF 125 MG/2 ML VIAL IV ONE (10:13)
[2020-04-16 10:43] LABS: Hemoglobin 14.1 gm/dL (12.5-16.0); Mean Cell Volume 100.4 fl (78-100); Mean Corpuscular Hemoglobin 31.5 pg (27-31); Mean Corpuscular Hgb Conc 31.3 g/dl (32-36); Neutrophil # 19.1 K/mm3 (1.3-6.0); Neutrophil % 88.3 % (42-75.0); Platelet Count 159 K/mm3 (150-450); Red Blood Count 4.48 M/mm3 (4.2-5.4); White Blood Count 21.6 K/mm3 (4.0-10.5)
[2020-04-16 11:00] LABS: Troponin I Less than 0.017 ng/mL (0.00-0.10)
[2020-04-16 11:12] LABS: ALT 61 U/L (19-67); AST 45 U/L (0-48); Albumin * 4.1 gm/dl (3.4-5.0); Alkaline Phosphatase * 182 U/L (50-170); Anion Gap 3.9 mmol/L (6.8-13.8); BNP * 139 pg/mL (5-325); Bilirubin, Total 0.4 mg/dL (0.0-1.1); Blood Urea Nitrogen 7 mg/dL (3-23); Ca. Corrected For Albumin 8.4 mg/dL (8.4-10.2); Calcium * 8.8 mg/dL (7.9-10.9); Carbon Dioxide 42.8 mmol/L (24-32.6); Chloride 96 mmol/L (97-106); Glucose * 149 mg/dL (70-110); Potassium 3.7 mmol/L (3.4-4.6); Sodium 139 mmol/L (132-142); Total Protein 8.3 gm/dL (6.2-8.2)
[2020-04-16] MEDS ORDERED: MORPHINE SULFATE 2 MG/ML DISP.SYRIN IV ONE (11:21)
--- NOTE | 2020-04-16 11:21 | ERNOTE ---
Dyspnea - General Presenting Symptoms: shortness of breath Time Seen by Provider: 04/16/20 10:07 Source: patient Exam Limitations: no limitations - Immun/Allergies/Home Medications Immunizations: IMMUNIZATION HX Immunizations Up to Date Yes History of Influenza Vaccine Yes Hx Pneumococcal Vaccination Yes Allergies/Adverse Reactions: Allergies shellfish derived Allergy (Intermediate, Verified 04/16/20 10:09) eyes swelling, peeled Home Medications: HOME MEDICATIONS Umeclidinium [place] [Incruse Ellipta] 62.5 mcg INHALATION DAILY 11/10/16 [Last Taken Unknown] Fluticasone/Vilanterol [Breo Ellipta 200-25 Mcg INH] 1 ea INHALATION DAILY 08/21/18 [Last Taken Unknown] guaifenesin 1,200 mg tablet, extended release 12 hr 1,200 mg PO BID 01/07/19 [Last Taken Unknown] Acetaminophen [Tylenol] 500 mg PO BID PRN 09/29/19 [Last Taken Unknown] Metoprolol Succinate 25 mg PO HS 03/12/20 [Last Taken Unknown] Sertraline HCl [Zoloft] 100 mg PO BID 03/12/20 [Last Taken Unknown] donepezil 10 mg tablet 10 mg PO HS 03/20/20 [Last Taken Unknown] Albuterol Sulfate [Albuterol Sulfate Hfa] 8.5 gm INHALATION Q6H 04/04/20 [Last Taken Unknown] Atorvastatin Calcium [Lipitor] 20 mg PO DAILY 04/04/20 [Last Taken Unknown] Azithromycin [Zithromax] 500 mg PO DAILY #5 tab 04/04/20 [Last Taken Unknown] Ipratropium/Albuterol Sulfate [Iprat-Albut 0.5-3(2.5) mg/3 ml] 3 ml INHALATION Q4H PRN 04/04/20 [Last Taken Unknown] Levothyroxine Sodium [Synthroid] 88 mcg PO DAILY 04/04/20 [Last Taken Unknown] Montelukast Sodium 10 mg PO DAILY 04/04/20 [Last Taken Unknown] Spironolactone [Aldactone] 25 mg PO BID 04/04/20 [Last Taken Unknown] Diazepam 5 mg PO BID PRN 04/16/20 [Last Taken Unknown] traMADol HCL [Tramadol HCl] 50 mg PO BID PRN 04/16/20 [Last Taken Unknown] - History of Present Illness Narrative: Patient has a history of COPD and obstructive sleep apnea, she is on 2 to 3 L home O2 and the BiPAP at night, and has had frequent exacerbations. She was last admitted for acute respiratory failure and pneumonia the end of February. The history is limited due to patient's difficulty breathing but she reports that she has had increasing shortness of breath mainly today. On EMS arrival patient was on a nonrebreather that had been applied by the fire department and she was satting in the low 70s and EMS applied a CPAP. Patient reports cough and shortness of breath, denies any chest pain, denies any fever Treatment [employer]: by patient, albuterol Initiating event: Denies: upper resp illness, out of meds Frequency of episodes: Reports: frequent episodes Modifying Factors - (Improves): Reports: oxygen Modifying Factors (Worsens): Reports: activity Associated Symptoms-Dyspnea: Denies: fever/chills, chest pain/discomfort Prior Treatment: Reports: recently seen. Denies: currently on antibiotics Review of Systems - Narrative Narrative: limited by clinical condition - Review of Systems Constitutional: Absent: recent illness, fever Respiratory: Present: shortness of breath Cardiology: Absent: chest pain Gastrointestinal/Abdominal: Absent: nausea, abdominal pain Medical History (Last Reviewed 04/16/20 @ 13:29 by Cheli Perez MD) Witnessed apneic spells (Chronic) Onset Date: ~10/15/15 Respiratory failure with hypoxia (Chronic) Onset Date: ~02/05/16 Psoriasis (Chronic) Onset Date: ~09/20/13 Oxygen dependent (Chronic) Onset Date: ~10/15/15 Obstructive sleep apnea (Chronic) Onset Date: ~11/06/15 Left leg pain (Chronic) Onset Date: ~06/22/15 Fracture, vertebral, lumbar closed (Chronic) Onset Date: ~04/20/14 Dizziness (Chronic) Onset Date: Unknown Constipation (Chronic) Onset Date: ~04/20/14 Benign positional vertigo (Chronic) Onset Date: ~04/13/14 Back pain (Chronic) Onset Date: ~06/22/15 Back muscle spasm (Chronic) Onset Date: ~06/22/15 Anxiety (Chronic) Onset Date: Unknown Allergic rhinitis (Chronic) Onset Date: ~09/20/13 History of hypothyroidism (Chronic) Hypertension (Chronic) History of depression (Chronic) Hx of pulmonary hypertension (Chronic) History of COPD (Chronic) Asthma, moderate persistent Surgical History: Surgical History (Last Reviewed 04/16/20 @ 13:29 by Cheli Perez MD) H/O tooth extraction Onset Date: Unknown full mouth History of tonsillectomy Onset Date: Unknown Family History: Family History (Last Reviewed 04/16/20 @ 10:09 by Noam Griffin RN) Mother , age 91-Alzheimers Cancer colon ca-dx age 30-40's Alzheimers disease Father , age 86-cancer Cancer prostate ca-dx age 70's, colon ca at 75. Brother Alive and well Grandfather Cancer maternal-colon ca-unknown age of dx Aunt Cancer maternal aunt-colon ca-dx age 40's Social History: (Last Reviewed 04/16/20 @ 10:09 by Noam Griffin RN) Social History: Marital status: household members: spouse number of children: 3 current occupational status: retired Service: No Tobacco: Smoking Status: Former smoker Alcohol: alcohol intake: current Alcohol type: wine alcohol intake frequency: a few times a week Substance Use: substance use type: does not use Dietary Habits: caffeine: Yes Personal Safety: victim of physical abuse: No victim of emotional abuse: No Physical Exam - Physical Exam General Appearance: Present: wd/wn, moderate distress, anxious Head Exam: Present: normal inspection, no evidence of injury Eye Exam: Normal inspection: bilateral, PERRL: bilateral Respiratory: Present: respiratory distress, decreased breath sounds - very, barely any air movment, expiration (prolonged) Cardiovascular/Chest: Present: regular rate, rhythm, no murmur Gastrointestinal/Abdominal: Present: normal bowel sounds, nontender, soft Extremity Exam: Present: no edema Neurological Exam: Present: alert, oriented Skin Exam: Present: warm/dry - , cyanosis Progress - Results and Orders Patient's Lab Results:: I have reviewed the patient's lab results. - Vital Signs Patient's Vital Signs:: I have reviewed the patient's vital signs. Vital Signs: Vital Signs 04/16/20 10:07 04/16/20 10:20 04/16/20 10:22 Temperature 36.1 C Pulse Rate 94 99 Respiratory Rate 34 H 37 H Blood Pressure 184/77 H 187/77 H O2 Sat by Pulse Oximetry 70 L 74 L 04/16/20 10:24 04/16/20 10:25 04/16/20 10:27 Temperature Pulse Rate 94 Respiratory Rate 25 H Blood Pressure O2 Sat by Pulse Oximetry 76 L 85 L 90 L 04/16/20 10:28 04/16/20 10:31 04/16/20 10:33 Temperature Pulse Rate 93 Respiratory Rate Blood Pressure O2 Sat by Pulse Oximetry 90 L 100 97 04/16/20 10:34 04/16/20 10:36 04/16/20 10:37 Temperature Pulse Rate 96 Respiratory Rate 36 H Blood Pressure 179/86 H O2 Sat by Pulse Oximetry 98 97 04/16/20 11:02 Temperature Pulse Rate 100 Respiratory Rate 35 H Blood Pressure 190/110 H O2 Sat by Pulse Oximetry 92 L - EKG EKG #1 EKG: NSR, other - poor quality, no acute changes EKG read: Interp. by me - X-Ray X-Ray #1 X-Ray: chest - possible left sided pneumonia Interpretation: Reviewed by me - Progress/Reassessment Chief Complaint: Dyspnea Progress Note-Subjective: 04/16/20 11:57 patient initial O2 sat was in the 70s with the CPAP applied by EMS, patient was switched to a BiPAP, initially at 100% O2. As her O2 sats were in the high 90s inspired O2 was dialed down to 45%, patient remained in O2 sat in the low 90s on 45% and an ABG was obtained. As our ABG machine is broken the sample will have to get [place] 04/16/20 11:57 discussed test results with patient and . states that patient had a rather rapid decline this morning. He admits that she had not been using her trilogy for at least for 5 nights because she had difficulty tolerating it. This morning around 8 o'clock he heard her to use her nebulizer, when he checks her O2 sat was 88 to 89%. Around 9 AM she requested help to go to the bathroom, after she came back O2 sats was in the low 70s and she had increasing shortness of breath and EMS was called. Patient has had frequent exacerbations, was admitted to the hospital in February, had another ER visit 12 days ago during which she was started on Zithromax. 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 Braden a few days ago and another a ntibiotic prescription was called in which he filled and was going to start this morning. He thinks that Levaquin 04/16/20 12:[address] Allen,okay to admit patient for pneumonia and acute respiratory failure, okay to to continue levaquin Departure Clinical Impression: Acute on chronic respiratory failure with hypoxia and hypercapnia, COPD with exacerbation Pneumonia Qualifiers: Pneumonia type: due to unspecified organism Laterality: left Lung location: lower lobe of lung Qualified Code(s): J18.9 - Pneumonia, unspecified organism - Departure Disposition: Still a patient Condition: Stable
[2020-04-16] MEDS ORDERED: LEVOFLOXACIN IN DEXTROSE 5 % 750 MG/150 ML BAG IV ONE (12:10)
[2020-04-16] MEDS ORDERED: ACETAMINOPHEN 325 MG TABLET PO PRN (12:30)
--- NOTE | 2020-04-16 13:23 | HP ---
Chief Complaint - Chief Complaint Date of Service: 04/16/20 Time of Service: 12:28 Chief Complaint: Shortness of breath x1 day History of Present Illness: 70-year-old female with a past medical history of COPD, oxygen dependent on tri logy at night, obstructive sleep apnea, chronic back pain, depression, hypothyroidism, pulmonary hypertension, psoriasis, hypertension, anxiety, asthma presents from home with complaints of worsening shortness of breath that began this morning. Per her she gave herself a breathing treatment around 8 AM and went to use the bathroom and when she got back to her bed states her oxygen saturation was in the 70s. She was placed on CPAP by EMS and brought to the emergency department. In the ER she continued to have low oxygen saturations in the 70s and was transitioned to BiPAP. She was given a dose of Solu-Medrol, Levaquin and morphine and albuterol sulfate inhaler. Her blood work showed white blood cell count of 21.6, ABG while on BiPAP showed pH of 7.21, CO2 88, oxygen of 58, bicarb 28. She had received a course of azithromycin steroids about a week and a half ago. Chest x-ray is positive for subtle consolidation in the left lung base with small left pleural effusion which could represent a focal infectious process. She did also spike a fever of 38.2 in the emergency room. She is being admitted for pneumonia, acute on chronic respiratory failure with hypoxia and hypercapnia and COPD exacerbation. Medical History (Last Reviewed 04/16/20 @ 14:48 by Angelina Delgado RN) Witnessed apneic spells (Chronic) Onset Date: ~10/15/15 Respiratory failure with hypoxia (Chronic) Onset Date: ~02/05/16 Psoriasis (Chronic) Onset Date: ~09/20/13 Oxygen dependent (Chronic) Onset Date: ~10/15/15 Obstructive sleep apnea (Chronic) Onset Date: ~11/06/15 Left leg pain (Chronic) Onset Date: ~06/22/15 Fracture, vertebral, lumbar closed (Chronic) Onset Date: ~04/20/14 Dizziness (Chronic) Onset Date: Unknown Constipation (Chronic) Onset Date: ~04/20/14 Benign positional vertigo (Chronic) Onset Date: ~04/13/14 Back pain (Chronic) Onset Date: ~06/22/15 Back muscle spasm (Chronic) Onset Date: ~06/22/15 Anxiety (Chronic) Onset Date: Unknown Allergic rhinitis (Chronic) Onset Date: ~09/20/13 History of hypothyroidism (Chronic) Hypertension (Chronic) History of depression (Chronic) Hx of pulmonary hypertension (Chronic) History of COPD (Chronic) Asthma, moderate persistent Surgical History: Surgical History (Last Reviewed 04/16/20 @ 14:48 by Angelina Delgado RN) H/O tooth extraction Onset Date: Unknown full mouth History of tonsillectomy Onset Date: Unknown Family History: Family History (Last Reviewed 04/16/20 @ 14:48 by Angelina Delgado RN) Mother , age 91-Alzheimers Cancer colon ca-dx age 30-40's Alzheimers disease Father , age 86-cancer Cancer prostate ca-dx age 70's, colon ca at 75. Brother Alive and well Grandfather Cancer maternal-colon ca-unknown age of dx Aunt Cancer maternal aunt-colon ca-dx age 40's Social History: (Last Reviewed 04/16/20 @ 10:09 by Noam Griffin RN) Social History: Marital status: household members: spouse number of children: 3 current occupational status: retired Service: No Tobacco: Smoking Status: Former smoker Alcohol: alcohol intake: current Alcohol type: wine alcohol intake frequency: a few times a week Substance Use: substance use type: does not use Dietary Habits: caffeine: Yes Personal Safety: victim of physical abuse: No victim of emotional abuse: No Review Of Systems (GEN) - Review of Systems Generalized/Overall Review: Present: Chills Respiratory: Present: Shortness of Breath Cardiac: Absent: Chest Pain Abdominal: Absent: Abdominal Pain Misc: All systems neg except as marked Immunizations: IMMUNIZATION HX Immunizations Up to Date Yes History of Influenza Vaccine Yes Hx Pneumococcal Vaccination Yes Allergies/Adverse Reactions: Allergies Allergy/AdvReac Type Severity Reaction Status Date / Time shellfish derived Allergy Intermediate eyes Verified 04/16/20 10:09 swelling, peeled Home Medications: HOME MEDICATIONS Umeclidinium Randolph [Incruse Ellipta] 62.5 mcg INHALATION DAILY 11/10/16 [Last Taken Unknown] Fluticasone/Vilanterol [Breo Ellipta 200-25 Mcg INH] 1 ea INHALATION DAILY 08/21/18 [Last Taken Unknown] guaifenesin 1,200 mg tablet, extended release 12 hr 1,200 mg PO BID 01/07/19 [Last Taken Unknown] Acetaminophen [Tylenol] 500 mg PO BID PRN 09/29/19 [Last Taken Unknown] Metoprolol Succinate 25 mg PO HS 03/12/20 [Last Taken Unknown] Sertraline HCl [Zoloft] 100 mg PO BID 03/12/20 [Last Taken Unknown] donepezil 10 mg tablet 10 mg PO HS 03/20/20 [Last Taken Unknown] Albuterol Sulfate [Albuterol Sulfate Hfa] 8.5 gm INHALATION Q6H PRN 04/04/20 [Last Taken Unknown] Atorvastatin Calcium [Lipitor] 20 mg PO DAILY 04/04/20 [Last Taken Unknown] Ipratropium/Albuterol Sulfate [Iprat-Albut 0.5-3(2.5) mg/3 ml] 3 ml INHALATION Q4H PRN 04/04/20 [Last Taken Unknown] Levothyroxine Sodium [Synthroid] 88 mcg PO DAILY 04/04/20 [Last Taken Unknown] Montelukast Sodium 10 mg PO DAILY 04/04/20 [Last Taken Unknown] Spironolactone [Aldactone] 25 mg PO BID 04/04/20 [Last Taken Unknown] Diazepam 5 mg PO BID PRN 04/16/20 [Last Taken Unknown] traMADol HCL [Tramadol HCl] 50 mg PO BID PRN 04/16/20 [Last Taken Unknown] Exam - Exam Vital Signs: Vital Signs - Last Taken Temp 38.0 C 04/16/20 12:31 Pulse 102 H 04/16/20 12:31 Resp 33 H 04/16/20 12:31 BP 116/62 04/16/20 12:31 Pulse Ox 90 L 04/16/20 12:31 Constitutional: Present: Alert, Cooperative, Well developed, Well nourished, No distress, Obese ENT Exam: Present: hearing grossly normal Eye Exam: bilateral eye: normal inspection, PERRL, EOMI Neck: Present: non-tender, supple. Absent: lymphadenopathy (R), lymphadenopathy (L) Back Exam: Present: no CVA tenderness, no vertebral tenderness Respiratory: Present: no respiratory distress, no accessory muscle use, decreased breath sounds - Throughout all lung ann, No wheezing. Absent: crackles, rhonchi Cardiovascular/Chest: Present: normal peripheral pulses, regular rate, rhythm, no edema, no murmur Peripheral Pulses: dorsalis-pedis (R): 1+, dorsalis-pedis (L): 1+ Abdomen: Present: Normal bowel sounds, soft, nontender Extremity: Present: no pedal edema Skin Exam: Present: normal color, warm/dry Neurologic: Present: alert, normal mood/affect Appearance: Present: appropriate appearance Eye contact: Present: cooperative Thoughts: Present: normal mood /affect Diagnostic Studies: Abnormal Lab Results 04/16/20 04/16/20 Range/Units 10:38 10:38 WBC 21.6 H (4.0-10.5) K/mm3 MCV 100.4 H (78-100) fl MCH 31.5 H (27-31) pg MCHC 31.3 L (32-36) g/dl Immature Gran % (Auto) 0.50 H (0.001-0.429) % Immature Gran # (Auto) 0.10 H (0.000-0.0310) K/mm3 Neutrophils % 88.3 H (42-75.0) % Lymphocytes % 6.6 L (20-51) % Neutrophils # 19.1 H (1.3-6.0) K/mm3 Lymphocytes # 1.42 L (1.5-3.5) k/mm3 Chloride 96 L (97-106) mmol/L Carbon Dioxide 42.8 H (24-32.6) mmol/L Anion Gap 3.9 L (6.8-13.8) mmol/L Random Glucose 149 H (70-110) mg/dL Alkaline Phosphatase 182 H (50-170) U/L Total Protein 8.3 H (6.2-8.2) gm/dL Laboratory Results WBC 21.6 K/mm3 (4.0-10.5) H 04/16/20 10:38 RBC 4.48 M/mm3 (4.2-5.4) 04/16/20 10:38 Hgb 14.1 gm/dL (12.5-16.0) 04/16/20 10:38 Hct 45.0 % (37.0-47.0) 04/16/20 10:38 MCV 100.4 fl (78-100) H 04/16/20 10:38 MCH 31.5 pg (27-31) H 04/16/20 10:38 MCHC 31.3 g/dl (32-36) L 04/16/20 10:38 RDW 14.0 % (11.5-14.0) 04/16/20 10:38 Plt Count 159 K/mm3 (150-450) 04/16/20 10:38 MPV 10.0 fl (8-12.5) 04/16/20 10:38 Immature Gran % (Auto) 0.50 % (0.001-0.429) H 04/16/20 10:38 Immature Gran # (Auto) 0.10 K/mm3 (0.000-0.0310) H 04/16/20 10:38 Neutrophils % 88.3 % (42-75.0) H 04/16/20 10:38 Lymphocytes % 6.6 % (20-51) L 04/16/20 10:38 Monocytes % 3.3 % (0.0-9) 04/16/20 10:38 Eosinophils % 1.1 % (0.0-3.0) 04/16/20 10:38 Basophils % 0.2 % (0.0-1.0) 04/16/20 10:38 Nucleated RBC % 0.0 k/mm3 (0-1) 04/16/20 10:38 Neutrophils # 19.1 K/mm3 (1.3-6.0) H 04/16/20 10:38 Lymphocytes # 1.42 k/mm3 (1.5-3.5) L 04/16/20 10:38 Monocytes # 0.7 k/mm3 (0.0-1.0) 04/16/20 10:38 Eosinophils # 0.2 k/mm3 (0.0-0.7) 04/16/20 10:38 Absolute Basophils 0.0 k/mm3 (0.0-0.1) 04/16/20 10:38 Sodium 139 mmol/L (132-142) 04/16/20 10:38 Plasma Sodium 140 mmol/L (130-142) 04/16/20 10:38 Potassium 3.7 mmol/L (3.4-4.6) 04/16/20 10:38 Chloride 96 mmol/L (97-106) L 04/16/20 10:38 Carbon Dioxide 42.8 mmol/L (24-32.6) H 04/16/20 10:38 Anion Gap 3.9 mmol/L (6.8-13.8) L 04/16/20 10:38 BUN 7 mg/dL (3-23) 04/16/20 10:38 Creatinine 0.70 mg/dL (0.4-1.4) 04/16/20 10:38 Est GFR (Non-Af Amer) 87 mL/min (60-130) 04/16/20 10:38 BUN/Creatinine Ratio 10.0 (9.0-21.6) 04/16/20 10:38 Random Glucose 149 mg/dL (70-110) H 04/16/20 10:38 Lactic Acid, Venous 1.9 mmol/L (0.4-2.0) 04/16/20 10:38 Calcium 8.8 mg/dL (7.9-10.9) 04/16/20 10:38 Calcium Adj for Albumin 8.4 mg/dL (8.4-10.2) 04/16/20 10:38 Total Bilirubin 0.4 mg/dL (0.0-1.1) 04/16/20 10:38 AST 45 U/L (0-48) 04/16/20 10:38 ALT 61 U/L (19-67) 04/16/20 10:38 Alkaline Phosphatase 182 U/L (50-170) H 04/16/20 10:38 Troponin I Less than 0.017 ng/mL (0.00-0.10) 04/16/20 10:38 B-Natriuretic Peptide 139 pg/mL (5-325) 04/16/20 10:38 Total Protein 8.3 gm/dL (6.2-8.2) H 04/16/20 10:38 Albumin 4.1 gm/dl (3.4-5.0) 04/16/20 10:38 SARS-CoV-2 (PCR) Not detected (ND) 04/16/20 10:26 Assessment/Plan - Narrative Narrative: 70-year-old female with a past medical history of COPD, oxygen dependent on trilogy at night, obstructive sleep apnea, chronic back pain, depression, hypothyroidism, pulmonary hypertension, psoriasis, hypertension, anxiety, asthma presents from home with complaints of worsening shortness of breath that began this morning. Per her she gave herself a breathing treatment around 8 AM and went to use the bathroom and when she got back to her bed states her oxygen saturation was in the 70s. She was placed on CPAP by EMS and brought to the emergency department. In the ER she continued to have low oxygen saturations in the 70s and was transitioned to BiPAP. She was given a dose of Solu-Medrol, Levaquin and morphine and albuterol sulfate inhaler. Her blood work showed white blood cell count of 21.6, ABG while on BiPAP showed pH of 7.21, CO2 88, oxygen of 58, bicarb 28. She had received a course of azithromycin steroids about a week and a half ago. Chest x-ray is positive for subtle consolidation in the left lung base with small left pleural effusion which could represent a focal infectious process. She did also spike a fever of 38.2 in the emergency room. She is being admitted for pneumonia, acute on chronic respiratory failure with hypoxia and hypercapnia and COPD exacerbation. Plan #1 continue with BiPAP and repeat ABG at 4 PM today. Repeat ABG in the morning as well #2 continue with Levaquin and albuterol #3 continue with prednisone 40 mg daily #4 resume home medications regarding raise #5 repeat CBC and CMP in the morning #6 goal oxygen saturation is 88 to 92% - Assessment/Plan (1) Acute on chronic respiratory failure with hypoxia and hypercapnia Problem: Acute (2) Pneumonia Problem: Acute Qualifiers: Pneumonia type: due to unspecified organism Laterality: left Lung location: lower lobe of lung Qualified Code(s): J18.9 - Pneumonia, unspecified organism (3) Anxiety Problem: Chronic (4) Chronic lower back pain Problem: Chronic Qualifiers: Back pain laterality: bilateral Sciatica presence: unspecified whether sciatica present Qualified Code(s): M54.5 - Low back pain; G89.29 - Other chronic pain (5) Depression Problem: Chronic Qualifiers: (6) COPD exacerbation Problem: Acute (7) Pulmonary hypertension Problem: Chronic (8) History of hypothyroidism Problem: Chronic (9) Hypertension Problem: Chronic Qualifiers: Hypertension type: essential hypertension Qualified Code(s): I10 - Essential (primary) hypertension
[2020-04-16] MEDS ORDERED: traMADol HCL 50 MG TABLET PO PRN (15:13)
[2020-04-16] MEDS ORDERED: ACETAMINOPHEN 500 MG TABLET PO PRN (15:13)
[2020-04-16] MEDS ORDERED: DIAZEPAM 5 MG TABLET PO PRN (15:13)
[2020-04-16] MEDS ORDERED: ALBUTEROL SULFATE 2.5 MG/0.5 ML VIAL.NEB IH PRN (15:13)
[2020-04-16] MEDS: ENOXAPARIN SODIUM 40 MG/0.4 ML SYRG SC SCH (19:06)
[2020-04-16] MEDS: SPIRONOLACTONE 25 MG TABLET PO SCH (21:21)
[2020-04-16] MEDS: DONEPEZIL HCL 10 MG TABLET PO SCH (21:21)
[2020-04-16] MEDS: SERTRALINE HCL 100 MG TABLET PO SCH (21:22)
[2020-04-16] MEDS: METOPROLOL SUCCINATE 25 MG TABLET.SA PO SCH (21:22)
[2020-04-17 06:31] LABS: Hematocrit 39.8 % (37.0-47.0); Hemoglobin 12.2 gm/dL (12.5-16.0); Mean Corpuscular Hemoglobin 30.3 pg (27-31); Mean Corpuscular Hgb Conc 30.7 g/dl (32-36); Mean Platelet Volume 9.7 fl (8-12.5); Neutrophil # 13.5 K/mm3 (1.3-6.0); Neutrophil % 91.5 % (42-75.0); Platelet Count 136 K/mm3 (150-450); Red Blood Count 4.02 M/mm3 (4.2-5.4); Red Cell Distribution Width 13.7 % (11.5-14.0); White Blood Count 14.8 K/mm3 (4.0-10.5)
[2020-04-17 06:41] LABS: Albumin * 3.5 gm/dl (3.4-5.0); Anion Gap 6.3 mmol/L (6.8-13.8); BUN/Creatinine Ratio 18.8 (9.0-21.6); Bilirubin, Total 0.5 mg/dL (0.0-1.1); Ca. Corrected For Albumin 9.1 mg/dL (8.4-10.2); Carbon Dioxide 40.7 mmol/L (24-32.6); Total Protein 7.4 gm/dL (6.2-8.2)
[2020-04-17] MEDS: LEVOTHYROXINE SODIUM 88 MCG TABLET PO SCH (07:11)
[2020-04-17] MEDS: FLUTICASONE PROPION/SALMETEROL 14 PUFF DISK.W.DEV IH SCH ×2 (08:26→21:07)
[2020-04-17] MEDS: TIOTROPIUM BROMIDE 5 CAP INHALER IH SCH (08:26)
[2020-04-17] MEDS: SPIRONOLACTONE 25 MG TABLET PO SCH ×2 (08:27→21:08)
[2020-04-17] MEDS: MONTELUKAST SODIUM 10 MG TABLET PO SCH (08:27)
[2020-04-17] MEDS: SERTRALINE HCL 100 MG TABLET PO SCH ×2 (08:27→21:09)
[2020-04-17] MEDS: ROSUVASTATIN CALCIUM 10 MG TABLET PO SCH (08:27)
[2020-04-17] MEDS: LEVOFLOXACIN IN DEXTROSE 5 % 750 MG/150 ML BAG IV SCH (14:27)
--- NOTE | 2020-04-17 17:07 | PN ---
Subjective - Date and Time Seen Date: 04/17/20 Time: 08:53 Subjective Narrative: She is feeling well, denies chest pain, or abdominal pain. Shortness of breath has improved Objective - Review of Systems Generalized/Overall Review: Denies: Fever Respiratory: Reports: Cough, Shortness of Breath Cardiac: Denies: Chest Pain Abdominal: Denies: Abdominal Pain Misc: All systems neg except as marked - Vitals Vitals: Last Vital Signs Temp 36.3 C 04/17/20 10:43 Pulse 82 04/17/20 16:32 Resp 24 H 04/17/20 16:32 BP 109/55 04/17/20 14:34 Pulse Ox 93 04/17/20 16:32 - Abnormal Lab Findings Abnormal Lab Findings: Abnormal Lab Results 04/16/20 04/17/20 04/17/20 Range/Units 16:00 06:10 06:26 WBC 14.8 H D (4.0-10.5) K/mm3 RBC 4.02 L (4.2-5.4) M/mm3 Hgb 12.2 L (12.5-16.0) gm/dL MCHC 30.7 L (32-36) g/dl Plt Count 136 L (150-450) K/mm3 Immature Gran % (Auto) 0.50 H (0.001-0.429) % Immature Gran # (Auto) 0.08 H (0.000-0.0310) K/mm3 Neutrophils % 91.5 H (42-75.0) % Lymphocytes % 4.5 L (20-51) % Neutrophils # 13.5 H (1.3-6.0) K/mm3 Lymphocytes # 0.66 L (1.5-3.5) k/mm3 pCO2 74.0 H* 71.0 H* (32.0-45.0) mmHg pO2 72.0 L 72.0 L (83.0-108.0) mmHg HCO3 29.0 H 32.3 H (21.0-28.0) mmol/L Total CO2 37.0 H 40.5 H (19.0-24.0) mmol/L Base Excess 5.5 H 9.6 H (-2.0-3.0) mmol/L ABG pH 7.28 L 7.34 L (7.35-7.45) Chloride (97-106) mmol/L Carbon Dioxide (24-32.6) mmol/L Anion Gap (6.8-13.8) mmol/L Random Glucose (70-110) mg/dL 04/17/20 04/17/20 Range/Units 06:26 11:16 WBC (4.0-10.5) K/mm3 RBC (4.2-5.4) M/mm3 Hgb (12.5-16.0) gm/dL MCHC (32-36) g/dl Plt Count (150-450) K/mm3 Immature Gran % (Auto) (0.001-0.429) % Immature Gran # (Auto) (0.000-0.0310) K/mm3 Neutrophils % (42-75.0) % Lymphocytes % (20-51) % Neutrophils # (1.3-6.0) K/mm3 Lymphocytes # (1.5-3.5) k/mm3 pCO2 68.0 H (32.0-45.0) mmHg pO2 (83.0-108.0) mmHg HCO3 32.0 H (21.0-28.0) mmol/L Total CO2 40.0 H (19.0-24.0) mmol/L Base Excess 9.2 H (-2.0-3.0) mmol/L ABG pH (7.35-7.45) Chloride 95 L (97-106) mmol/L Carbon Dioxide 40.7 H (24-32.6) mmol/L Anion Gap 6.3 L (6.8-13.8) mmol/L Random Glucose 128 H (70-110) mg/dL - Exam Constitutional: Present: Alert, Cooperative, Well developed, Well nourished, No distress, Elderly ENT Exam: Present: hearing grossly normal Neck: Present: non-tender, supple. Absent: lymphadenopathy (R), lymphadenopathy (L) Respiratory: Present: lungs clear, no accessory muscle use, No wheezing. Absent: crackles, rhonchi Cardiovascular/Chest: Present: normal peripheral pulses, regular rate, rhythm, no edema, no murmur Abdomen: Present: Normal bowel sounds, soft. Absent: tender Extremity: Present: no pedal edema Skin Exam: Present: normal color, warm/dry Neurologic: Present: alert, normal mood/affect Appearance: Present: appropriate appearance Eye contact: Present: cooperative Thoughts: Present: normal thought pattern. Absent: normal mood /affect Assessment/Plan Plan Narrative: 70-year-old female with a past medical history of COPD, oxygen dependent on trilogy at night, obstructive sleep apnea, chronic back pain, depression, hypothyroidism, pulmonary hypertension, psoriasis, hypertension, anxiety, asthma presents from home with complaints of worsening shortness of breath that began this morning. Per her she gave herself a breathing treatment around 8 AM and went to use the bathroom and when she got back to her bed states her oxygen saturation was in the 70s. She was placed on CPAP by EMS and brought to the emergency department. In the ER she continued to have low oxygen saturations in the 70s and was transitioned to BiPAP. She was given a dose of Solu-Medrol, Levaquin and morphine and albuterol sulfate inhaler. Her blood work showed white blood cell count of 21.6, ABG while on BiPAP showed pH of 7.21, CO2 88, oxygen of 58, bicarb 28. She had received a course of azithromycin steroids about a week and a half ago. Chest x-ray is positive for subtle consolidation in the left lung base with small left pleural effusion which could represent a focal infectious process. She did also spike a fever of 38.2 in the emergency room. She is being admitted for pneumonia, acute on chronic respiratory failure with hypoxia and hypercapnia and COPD exacerbation. She feels better today and is comfortable on the oxygen via nasal cannula. Her ABG has improved slightly but the CO2 is still above her baseline. I will increase her IPAP 12-15. Plan #1 Increased IPAP from 12-15. Repeat ABG shows improvement in CO2 level. Continue with BiPAP and wear overnight. Repeat ABG in the morning. #2 continue with Levaquin day 2 and albuterol #3 continue with prednisone 40 mg daily #4 resume home medications #5 repeat CBC and CMP in the morning #6 goal oxygen saturation is 88 to 92% - Problems/Diagnosis (1) Acute on chronic respiratory failure with hypoxia and hypercapnia Problem: Acute (2) Pneumonia Problem: Acute Qualifiers: Pneumonia type: due to unspecified organism Laterality: left Lung location: lower lobe of lung Qualified Code(s): J18.9 - Pneumonia, unspecified organism (3) COPD exacerbation Problem: Acute (4) Anxiety Problem: Chronic (5) Chronic lower back pain Problem: Chronic Qualifiers: Back pain laterality: bilateral Sciatica presence: unspecified whether sciatica present Qualified Code(s): M54.5 - Low back pain; G89.29 - Other chronic pain (6) Depression Problem: Chronic Qualifiers: (7) Pulmonary hypertension Problem: Chronic (8) History of hypothyroidism Problem: Chronic (9) Hypertension Problem: Chronic Qualifiers: Hypertension type: essential hypertension Qualified Code(s): I10 - Essential (primary) hypertension
[2020-04-17] MEDS: predniSONE 20 MG TABLET PO SCH (17:32)
[2020-04-17] MEDS: ENOXAPARIN SODIUM 40 MG/0.4 ML SYRG SC SCH (17:32)
[2020-04-17] MEDS: DONEPEZIL HCL 10 MG TABLET PO SCH (21:08)
[2020-04-17] MEDS: NYSTATIN 15 APPL BTL TP SCH (21:08)
[2020-04-17] MEDS: METOPROLOL SUCCINATE 25 MG TABLET.SA PO SCH (21:11)
[2020-04-18 06:25] LABS: Hematocrit 37.6 % (37.0-47.0); Hemoglobin 11.6 gm/dL (12.5-16.0); Mean Cell Volume 98.4 fl (78-100); Mean Corpuscular Hemoglobin 30.4 pg (27-31); Mean Corpuscular Hgb Conc 30.9 g/dl (32-36); Mean Platelet Volume 10.3 fl (8-12.5); Neutrophil # 8.9 K/mm3 (1.3-6.0); Neutrophil % 87.8 % (42-75.0); Platelet Count 136 K/mm3 (150-450); Red Blood Count 3.82 M/mm3 (4.2-5.4); Red Cell Distribution Width 13.9 % (11.5-14.0); White Blood Count 10.1 K/mm3 (4.0-10.5)
[2020-04-18 06:39] LABS: Albumin * 3.2 gm/dl (3.4-5.0); Anion Gap 2.6 mmol/L (6.8-13.8); BUN/Creatinine Ratio 23.7 (9.0-21.6); Bilirubin, Total 0.3 mg/dL (0.0-1.1); Calcium * 8.7 mg/dL (7.9-10.9); Carbon Dioxide 40.1 mmol/L (24-32.6); Potassium 3.7 mmol/L (3.4-4.6); Total Protein 6.9 gm/dL (6.2-8.2)
[2020-04-18] MEDS: LEVOTHYROXINE SODIUM 88 MCG TABLET PO SCH (07:53)
[2020-04-18] MEDS: TIOTROPIUM BROMIDE 5 CAP INHALER IH SCH (09:05)
[2020-04-18] MEDS: FLUTICASONE PROPION/SALMETEROL 14 PUFF DISK.W.DEV IH SCH (09:06)
[2020-04-18] MEDS: MONTELUKAST SODIUM 10 MG TABLET PO SCH (09:06)
[2020-04-18] MEDS: SERTRALINE HCL 100 MG TABLET PO SCH (09:07)
[2020-04-18] MEDS: SPIRONOLACTONE 25 MG TABLET PO SCH (09:07)
[2020-04-18] MEDS: predniSONE 20 MG TABLET PO SCH (09:08)
[2020-04-18] MEDS: ROSUVASTATIN CALCIUM 10 MG TABLET PO SCH (09:08)
[2020-04-18] MEDS: NYSTATIN 15 APPL BTL TP SCH (09:18)
--- NOTE | 2020-04-18 11:03 | DS ---
(1) Acute on chronic respiratory failure with hypoxia and hypercapnia Problem: Acute (2) Pneumonia Problem: Acute Qualifiers: Pneumonia type: due to unspecified organism Laterality: left Lung location: lower lobe of lung Qualified Code(s): J18.9 - Pneumonia, unspecified organism (3) COPD exacerbation Problem: Acute (4) Anxiety Problem: Chronic (5) Chronic lower back pain Problem: Chronic Qualifiers: Back pain laterality: bilateral Sciatica presence: unspecified whether sciatica present Qualified Code(s): M54.5 - Low back pain; G89.29 - Other chronic pain (6) Depression Problem: Chronic Qualifiers: (7) Pulmonary hypertension Problem: Chronic (8) History of hypothyroidism Problem: Chronic (9) Hypertension Problem: Chronic Qualifiers: Hypertension type: essential hypertension Qualified Code(s): I10 - Essential (primary) hypertension Hospital Course: 70-year-old female with a past medical history of COPD, oxygen dependent on trilogy at night, obstructive sleep apnea, chronic back pain, depression, hypothyroidism, pulmonary hypertension, psoriasis, hypertension, anxiety, asthma presents from home with complaints of worsening shortness of breath that began this morning. Per her she gave herself a breathing treatment around 8 AM and went to use the bathroom and when she got back to her bed states her oxygen saturation was in the 70s. She was placed on CPAP by EMS and brought to the emergency department. In the ER she continued to have low oxygen saturations in the 70s and was transitioned to BiPAP. She was given a dose of Solu-Medrol, Levaquin and morphine and albuterol sulfate inhaler. Her blood work showed white blood cell count of 21.6, ABG while on BiPAP showed pH of 7.21, CO2 88, oxygen of 58, bicarb 28. She had received a course of azithromycin steroids about a week and a half ago. Chest x-ray is positive for subtle consolidation in the left lung base with small left pleural effusion which could represent a focal infectious process. She did also spike a fever of 38.2 in the emergency room. She is being admitted for pneumonia, acute on chronic respiratory failure with hypoxia and hypercapnia and COPD exacerbation. She feels well today and is comfortable on the oxygen via nasal cannula. ABG today has improved and shows pH of 7.41, PCO2 49.6, bicarb 30.7, PO2 79.3, O2 sat 95.7. Patient is feeling well and is back to her baseline oxygen at room air. She is stable to be discharged home today. She has been educated regarding the importance of compliance with her trilogy at night. Iqra Champagne is confined to the home due to progressively worsening COPD. The need for half-way is for monitoring of vitals, monitoring of her declining medical status, monitoring of compliance with medication regimen. The need for home health care skilled services is directly related to the time spent [id number] with the patient. More than 30 minutes the patient would also like to be evaluated for hospice to determine whether or not she is a hospice candidate. More than 30 minutes spent with the patient and her family discussing her medical condition, medication regimen and plan of care. Procedures Performed: none Results and Findings: Pending Mircobiology Results 04/16/20 12:06 Blood Blood Culture - Preliminary NO GROWTH 24 HOURS 04/16/20 10:38 Blood Blood Culture - Preliminary NO GROWTH 24 HOURS Lab Pending Results 04/16/20 10:26: SARS-CoV-2 (PCR) Not detected 04/16/20 10:38: WBC 21.6 H, RBC 4.48, Hgb 14.1, Hct 45.0, MCV 100.4 H, MCH 31.5 H, MCHC 31.3 L, RDW 14.0, Plt Count 159, MPV 10.0, Immature Gran % (Auto) 0.50 H, Immature Gran # (Auto) 0.10 H, Neutrophils % 88.3 H, Lymphocytes % 6.6 L, Monocytes % 3.3, Eosinophils % 1.1, Basophils % 0.2, Nucleated RBC % 0.0, Neutrophils # 19.1 H, Lymphocytes # 1.42 L, Monocytes # 0.7, Eosinophils # 0.2, Absolute Basophils 0.0 04/16/20 10:38: Sodium 139, Plasma Sodium 140, Potassium 3.7, Chloride 96 L, Carbon Dioxide 42.8 H, Anion Gap 3.9 L, BUN 7, Creatinine 0.70, Est GFR (Non-Af Amer) 87, BUN/Creatinine Ratio 10.0, Random Glucose 149 H, Calcium 8.8, Calcium Adj for Albumin 8.4, Total Bilirubin 0.4, AST 45, ALT 61, Alkaline Phosphatase 182 H, Troponin I Less than 0.017, B-Natriuretic Peptide 139, Total Protein 8.3 H, Albumin 4.1 04/16/20 10:38: Lactic Acid, Venous 1.9 04/16/20 16:00: pCO2 74.0 H*, pO2 72.0 L, HCO3 29.0 H, Total CO2 37.0 H, Base Excess 5.5 H, ABG pH 7.28 L, ABG O2 Sat (Measured) 96.0 04/17/20 06:10: pCO2 71.0 H*, pO2 72.0 L, HCO3 32.3 H, Total CO2 40.5 H, Base Excess 9.6 H, ABG pH 7.34 L, ABG O2 Sat (Measured) 97.2 04/17/20 06:26: WBC 14.8 H D, RBC 4.02 L, Hgb 12.2 L, Hct 39.8, MCV 99.0, MCH 30.3, MCHC 30.7 L, RDW 13.7, Plt Count 136 L, MPV 9.7, Immature Gran % (Auto) 0.50 H, Immature Gran # (Auto) 0.08 H, Neutrophils % 91.5 H, Lymphocytes % 4.5 L, Monocytes % 3.4, Eosinophils % 0.0, Basophils % 0.1, Nucleated RBC % 0.0, Neutrophils # 13.5 H, Lymphocytes # 0.66 L, Monocytes # 0.5, Eosinophils # 0.0, Absolute Basophils 0.0 04/17/20 06:26: Sodium 138, Plasma Sodium 138, Potassium 4.0, Chloride 95 L, Carbon Dioxide 40.7 H, Anion Gap 6.3 L, BUN 13 D, Creatinine 0.69, Est GFR (Non-Af Amer) 89, BUN/Creatinine Ratio 18.8, Random Glucose 128 H, Calcium 9.0, Calcium Adj for Albumin 9.1, Total Bilirubin 0.5, AST 36, ALT 58, Alkaline Phosphatase 132, Total Protein 7.4, Albumin 3.5 04/17/20 11:16: pCO2 68.0 H, pO2 86.0, HCO3 32.0 H, Total CO2 40.0 H, Base Excess 9.2 H, ABG pH 7.35, ABG O2 Sat (Measured) 98.0 04/18/20 06:00: pCO2 49.6 H, pO2 79.3 L, HCO3 30.7 H, Total CO2 32.3 H, Base Excess 5.2 H, ABG pH 7.41, ABG O2 Sat (Measured) 95.7 04/18/20 06:00: Sodium 136, Plasma Sodium 137, Potassium 3.7, Chloride 97, Carbon Dioxide 40.1 H, Anion Gap 2.6 L, BUN 14, Creatinine 0.59, Est GFR (Non-Af Amer) 106, BUN/Creatinine Ratio 23.7 H, Random Glucose 138 H, Calcium 8.7, Calcium Adj for Albumin 9.0, Total Bilirubin 0.3, AST 34, ALT 61, Alkaline Phosphatase 124, Total Protein 6.9, Albumin 3.2 L 04/18/20 06:15: WBC 10.1 D, RBC 3.82 L, Hgb 11.6 L, Hct 37.6, MCV 98.4, MCH 30.4, MCHC 30.9 L, RDW 13.9, Plt Count 136 L, MPV 10.3, Immature Gran % (Auto) 0.80 H, Immature Gran # (Auto) 0.08 H, Neutrophils % 87.8 H, Lymphocytes % 7.8 L, Monocytes % 3.5, Eosinophils % 0.0, Basophils % 0.1, Nucleated RBC % 0.0, Neutrophils # 8.9 H, Lymphocytes # 0.79 L, Monocytes # 0.4, Eosinophils # 0.0, Absolute Basophils 0.0 Discharge Location: Home Disposition: [facility] Home Health Condition: Stable Discharge Activity: Activity as tolerated Discharge Diet: General/regular food Referrals: Belle Allen MD [Primary Care Provider] - Additional Patient Instructions (free text): Goal oxygen saturation is 90 to 92%. Prescriptions (Any new or edited meds): Levofloxacin [Levaquin] 750 mg PO DAILY #2 tab Transmission Status: Received by [facility] predniSONE [Prednisone] 40 mg PO DAILY #4 tab Transmission Status: Received by [facility] Complete Home Medications List: Complete Home Medication List: Umeclidinium Russell [Incruse Ellipta] 62.5 mcg INHALATION DAILY 11/10/16 Fluticasone/Vilanterol [Breo Ellipta 200-25 Mcg INH] 1 ea INHALATION DAILY 08/21/18 guaifenesin 1,200 mg tablet, extended release 12 hr 1,200 mg PO BID 01/07/19 Acetaminophen [Tylenol] 500 mg PO BID PRN 09/29/19 Metoprolol Succinate 25 mg PO HS 03/12/20 Sertraline HCl [Zoloft] 100 mg PO BID 03/12/20 donepezil 10 mg tablet 10 mg PO HS 03/20/20 Albuterol Sulfate [Albuterol Sulfate Hfa] 8.5 gm INHALATION Q6H PRN 04/04/20 Atorvastatin Calcium [Lipitor] 20 mg PO DAILY 04/04/20 Ipratropium/Albuterol Sulfate [Iprat-Albut 0.5-3(2.5) mg/3 ml] 3 ml INHALATION Q4H PRN 04/04/20 Levothyroxine Sodium [Synthroid] 88 mcg PO DAILY 04/04/20 Montelukast Sodium 10 mg PO DAILY 04/04/20 Spironolactone [Aldactone] 25 mg PO BID 04/04/20 Diazepam 5 mg PO BID PRN 04/16/20 traMADol HCL [Tramadol HCl] 50 mg PO BID PRN 04/16/20 Levofloxacin [Levaquin] 750 mg PO DAILY #2 tab 04/18/20 predniSONE [Prednisone] 40 mg PO DAILY #4 tab 04/18/20 Forms: Patient Portal Registration
[2020-04-18] MEDS: LEVOFLOXACIN IN DEXTROSE 5 % 750 MG/150 ML BAG IV SCH (12:37)
[2020-04-18 14:57] VITALS: BP 126/76
== END 2020-04-18 15:21 | disposition home health service (06) | DRG 193 ==
LOC: ER 10:07 → MS 12:25
PROVIDERS: ADMIT Internal Medicine; ATTEND Internal Medicine
DX: I10 Essential (primary) hypertension; J44.0 Chronic obstructive pulmonary disease with (acute) lower respiratory infection; J18.9 Pneumonia, unspecified organism; E03.9 Hypothyroidism, unspecified; Z99.81 Dependence on supplemental oxygen; F41.9 Anxiety disorder, unspecified; I27.20 Pulmonary hypertension, unspecified; J44.1 Chronic obstructive pulmonary disease with (acute) exacerbation; G47.33 Obstructive sleep apnea (adult) (pediatric); J96.21 Acute and chronic respiratory failure with hypoxia; J96.22 Acute and chronic respiratory failure with hypercapnia; Z11.59 Encounter for screening for other viral diseases
CPT/HCPCS: 36415; 36600; 71010; 71045; 80053; 82803; 83519; 83605; 83880; 84484; 85025; 87040; 93005; 94640; 94664; 94760; 96374; 96375; 99285